=== PATIENT | female | born 1945 | race American Indian/Alaskan Native ===

== ENCOUNTER 2016-12-22 14:38 | Inpatient (IN) | payer MEDICARE ==
[2016-12-22] MEDS ORDERED: ATIVAN ONE (14:40)
[2016-12-22 14:53] LABS: Hematocrit 40.4 % (30.3-42.9); Hemoglobin 12.5 gm/dl (10.1-14.3); Mean Corpuscular HGB Conc 31 % (30-34); Mean Corpuscular Hemoglobin 25 pg (28-32); Mean Corpuscular Volume 80 fl (79-97); Platelet Count 237 K/mm3 (140-440); Red Blood Count 5.06 M/mm3 (3.65-5.03); Red Cell Distribution Width 17.2 % (13.2-15.2); White Blood Count 9.1 K/mm3 (4.5-11.0)
[2016-12-22] MEDS ORDERED: NORMODYNE IV ONE (14:54)
[2016-12-22] MEDS: DIPRIVAN 10 MG/ML 1,000 MG/100 ML BOTTLE IV SCH ×2 (14:56→21:04)
[2016-12-22] MEDS ORDERED: VERSED IV ONE (15:00)
[2016-12-22] MEDS ORDERED: AMIDATE IV ONE (15:00)
[2016-12-22] MEDS ORDERED: QUELICIN ONE (15:00)
[2016-12-22] MEDS ORDERED: DIPRIVAN 10 MG/ML 1,000 MG/100 ML BOTTLE IV ONE (15:01)
[2016-12-22 15:07] LABS: INR 1.12 (0.87-1.13)
[2016-12-22 15:08] LABS: Partial Thromboplastin Time 29.5 Sec. (24.2-36.6)
[2016-12-22] MEDS ORDERED: ARTIFICIAL TEARS OPHTH OINT OU PRN (15:18)
[2016-12-22] MEDS ORDERED: VASELINE LIP THERAPY TP PRN (15:18)
[2016-12-22 15:19] LABS: Anion Gap 28 mmol/L; BUN/Creatinine Ratio 11.81; Blood Urea Nitrogen 13 mg/dL (7-17); Calcium 8.8 mg/dL (8.4-10.2); Carbon Dioxide 20 mmol/L (22-30); Chloride 90.8 mmol/L (98-107); Potassium 3.4 mmol/L (3.6-5.0); Sodium 135 mmol/L (137-145)
[2016-12-22 15:35] LABS: Anisocytosis 1+; Basophils % (Manual) 0 % (0.0-1.8); Blastocytes % (Manual) 0 %; Hypochromasia 1+
[2016-12-22 15:36] LABS: Diff Status Complete; Large Platelets 1+; Ovalocytes 1+; Platelet Estimate Consistent w Auto
[2016-12-22 15:41] LABS: Glucose 663 mg/dL (65-100)
[2016-12-22] MEDS ORDERED: ZOSYN/NS 4.5GM/100ML 4.5 GM/100 ML VIAL IV ONE (15:56)
[2016-12-22] MEDS ORDERED: NACL 0.9% 500 ML IV SCH (16:00)
[2016-12-22] MEDS ORDERED: VANCOMYCIN PHARMACY TO DOSE IV SCH (16:00)
[2016-12-22 16:04] LABS: Alanine Aminotransferase 15 units/L (7-56); Albumin 3.7 g/dL (3.9-5); Alkaline Phosphatase 108 units/L (35-129); Creatine Kinase MB 1.3 ng/mL (0.0-4.0); Total Protein 7.3 g/dL (6.3-8.2)
[2016-12-22 16:06] LABS: Bilirubin,Direct < 0.2 mg/dL (0-0.2); Bilirubin,Indirect 0.5 mg/dL
[2016-12-22 16:07] LABS: ISTAT Base Excess 2; ISTAT HCO3 28.1; ISTAT PCO2 52.9 (35-45); ISTAT PH 7.333 (7.35-7.45); ISTAT PO2 194 (80-105); ISTAT SO2 100; ISTAT TCO2 30
[2016-12-22] MEDS ORDERED: ATIVAN IM ONE (16:08)
--- NOTE | 2016-12-22 16:10 | Cat Scan Report ---
CT HEAD WITHOUT CONTRAST INDICATION: Neuro deficits <6 hours or symptoms present upon awakening. COMPARISON: 04/25/2016. FINDINGS: Noncontrast head CT, with few images repeated for motion, demonstrates stable, age-appropriate ventricles and sulci with mild periventricular and few white matter hypodensities. No definite acute infarct, hemorrhage, mass effect or midline shift, to the extent assessed. No abnormal extra axial fluid collections. Normal posterior fossa with preserved basilar cisterns. Stable 5 mm right cerebellar peripheral lacunar infarct, axial image 13, series 4. New endotracheal and orogastric tubes. Numerous radiopaque dental material create extensive streak artifact, limiting exam. Stable bilateral cataract surgery. Mild bilateral ethmoid sinusitis. Clear remainder imaged paranasal sinuses and mastoid air cells. Approximately 4 mm leftward nasal septal spur. Intact calvarium. Normal skull. CONCLUSION: No definite acute intracranial abnormality on this limited exam with interval intubation, orogastric tube placement and few other incidental findings noted, as above. Please correlate. If focal neurologic deficits or strong clinical suspicion for an acute infarction exist, additional assessment as with MRI may be considered, as appropriate. Thank you for the opportunity to participate in this patient's care.
[2016-12-22] MEDS ORDERED: NACL 0.9% 1000 ML 1,000 ML IV ONE (16:13)
[2016-12-22 16:15] LABS: Ketones Negative (Negative)
--- NOTE | 2016-12-22 16:22 | XRay Report ---
PORTABLE CHEST INDICATION: ET tube placement. COMPARISON: 12/11/2015 FINDINGS: Portable, frontal chest radiograph demonstrates new endotracheal tube tip approximately 3.5 cm above the nasir. A new esophagogastric tube also extends well into the stomach and beyond the inferior radiographic margin. Stable cardiomediastinal silhouette/mild cardiomegaly. Slight increased markings centrally, possibly technical related to poorer inspiration versus congestion. Subtle 3-4 cm left basilar opacity obscuring the left lateral costophrenic angle now suspected, partly obscuring the left hemidiaphragm. EKG leads. Intact bones. CONCLUSION: 1. Interval uncomplicated intubation and esophagogastric tube placement, as described. 2. Slight worsening of pulmonary vascular congestion with stable cardiomegaly. 3. Subtle left basilar opacity also now not excluded. Thank you for the opportunity to participate in this patient's care.
--- NOTE | 2016-12-22 16:59 | Emergency Department Report ---
ED General Adult HPI - General Chief complaint: Altered Mental Status Stated complaint: POSS STROKE Time Seen by Provider: 12/22/16 15:16 Source: EMS Mode of arrival: Stretcher Limitations: Altered Mental Status - History of Present Illness Initial comments: The patient was transported to this facility as a possible code stroke. However upon arrival it became clear that she had a medical delirium. She presented with obvious altered mental status, agitated behavior, nonfocal neurological exam and inability to communicate. In route to the hospital, paramedics found the patient to have an elevated glucose (high off the scale). On arrival the patient's pulse oximetry was in the 70s with a good plethysmography curve. In addition medics stated that her blood pressure was 225 over "palp". It was medically impossible to stabilize the patient without rapid sequence intubation. Her pulse oximetry did improve with a nasal cannula. However she certainly required sedation for medical workup. Therefore we proceeded with RSI. This occurred without difficulty. And her workup ensued. I explained to the family that the patient is acutely ill and that it will take some time to discover the extent of her problems. -: unknown Consistency: constant Improves with: none Worsens with: none - Related Data Home Medications Medication Instructions Recorded Confirmed Last Taken Albuterol Sulfate [Ventolin HFA] 2 puff IH Q4H PRN 12/11/15 04/25/16 1 Week Ago 8 Apixaban [Eliquis] 5 mg PO BID 12/11/15 04/25/16 1 Day Ago 5 Aspirin [Aspirin BABY CHEW TAB] 162 mg PO QDAY 12/11/15 04/25/16 1 Day Ago 81 AtorvaSTATin [Lipitor] 10 mg PO DAILY 12/11/15 04/25/16 1 Day Ago 10 Citalopram [Celexa] 20 mg PO QDAY 12/11/15 04/25/16 1 Day Ago 20 Docusate Sodium [Dok] 100 mg PO DAILY PRN 12/11/15 04/25/16 1 Day Ago 100 Levothyroxine [Synthroid] 100 mcg PO QAM 12/11/15 04/25/16 1 Day Ago 100 Potassium Chloride [K-Dur] 20 meq PO BID 12/11/15 04/25/16 1 Day Ago 20 Sildenafil [Revatio] 20 mg PO TID 12/11/15 04/25/16 1 Day Ago 20 cloNIDine [Catapres] 0.1 mg PO BID 12/11/15 04/25/16 1 Day Ago 0.1 hydrALAZINE [Apresoline TAB] 100 mg PO TID 12/11/15 04/25/16 1 Day Ago 100 traMADol [Ultram 50 MG tab] 50 mg PO Q12HR PRN 12/11/15 04/25/16 1 Day Ago 50 Insulin NPH Hum/Reg Insulin Hm 40 units SQ QPM 12/12/15 04/25/16 1 Day Ago [HumuLIN 70-30 Vial] 40 Insulin NPH Hum/Reg Insulin Hm 60 unit SQ QAM 12/12/15 04/25/16 1 Day Ago [HumuLIN 70-30 Vial] 60 Previous Rx's Medication Instructions Recorded Last Taken Type Famotidine [Pepcid] 20 mg PO BID #60 tablet 12/12/15 1 Day Ago Rx 20 Metoprolol [Lopressor TAB] 12.5 mg PO BID #60 tablet 12/12/15 1 Day Ago Rx 12.5 Allergies Allergy/AdvReac Type Severity Reaction Status Date / Time codeine Allergy Vomiting Verified 12/11/15 21:21 ED Review of Systems ROS: Stated complaint: POSS STROKE Other details as noted in HPI Comment: Unobtainable due to pts medical conditions ED Past Medical Hx - Past Medical History Previous Medical History?: Yes Hx Hypertension: Yes Hx Congestive Heart Failure: Yes Hx Diabetes: Yes Hx Renal Disease: Yes Hx Arthritis: Yes Hx Asthma: Yes Additional medical history: PULMONARY EDEMA/ BACK DISC / A FIB - Surgical History Past Surgical History?: Yes Hx Appendectomy: Yes Additional Surgical History: HYSTERECTOMY - Social History Smoking Status: Unknown if ever smoked - Medications Home Medications: Home Medications Medication Instructions Recorded Confirmed Last Taken Type Albuterol Sulfate [Ventolin HFA] 2 puff IH Q4H PRN 12/11/15 04/25/16 1 Week Ago History 8 Apixaban [Eliquis] 5 mg PO BID 12/11/15 04/25/16 1 Day Ago History 5 Aspirin [Aspirin BABY CHEW TAB] 162 mg PO QDAY 12/11/15 04/25/16 1 Day Ago History 81 AtorvaSTATin [Lipitor] 10 mg PO DAILY 12/11/15 04/25/16 1 Day Ago History 10 Citalopram [Celexa] 20 mg PO QDAY 12/11/15 04/25/16 1 Day Ago History 20 Docusate Sodium [Dok] 100 mg PO DAILY PRN 12/11/15 04/25/16 1 Day Ago History 100 Levothyroxine [Synthroid] 100 mcg PO QAM 12/11/15 04/25/16 1 Day Ago History 100 Potassium Chloride [K-Dur] 20 meq PO BID 12/11/15 04/25/16 1 Day Ago History 20 Sildenafil [Revatio] 20 mg PO TID 12/11/15 04/25/16 1 Day Ago History 20 cloNIDine [Catapres] 0.1 mg PO BID 12/11/15 04/25/16 1 Day Ago History 0.1 hydrALAZINE [Apresoline TAB] 100 mg PO TID 12/11/15 04/25/16 1 Day Ago History 100 traMADol [Ultram 50 MG tab] 50 mg PO Q12HR PRN 12/11/15 04/25/16 1 Day Ago History 50 Famotidine [Pepcid] 20 mg PO BID #60 tablet 12/12/15 04/25/16 1 Day Ago Rx 20 Insulin NPH Hum/Reg Insulin Hm 40 units SQ QPM 12/12/15 04/25/16 1 Day Ago History [HumuLIN 70-30 Vial] 40 Insulin NPH Hum/Reg Insulin Hm 60 unit SQ QAM 12/12/15 04/25/16 1 Day Ago History [HumuLIN 70-30 Vial] 60 Metoprolol [Lopressor TAB] 12.5 mg PO BID #60 tablet 12/12/15 04/25/16 1 Day Ago Rx 12.5 ED Physical Exam - General Limitations: Altered Mental Status General appearance: other (obviously delirious very agitated) - Head Head exam: Present: atraumatic - Eye Eye exam: Present: PERRL, EOMI. Absent: scleral icterus - ENT ENT exam: Present: mucous membranes moist - Neck Neck exam: Present: normal inspection. Absent: tenderness, meningismus - Respiratory Respiratory exam: Present: normal lung sounds bilaterally. Absent: respiratory distress - Cardiovascular Cardiovascular Exam: Present: normal rhythm, irregular rhythm. Absent: systolic murmur, diastolic murmur, rubs, gallop - GI/Abdominal GI/Abdominal exam: Present: soft, normal bowel sounds. Absent: distended, tenderness, guarding, rebound, rigid - Extremities Exam Extremities exam: Present: normal inspection, full ROM, normal capillary refill. Absent: tenderness, pedal edema, joint swelling, calf tenderness - Back Exam Back exam: Present: normal inspection - Neurological Exam Neurological exam: Present: altered, other (nonfocal neurological exam moving all extremities quite briskly. No apparent cranial nerve deficit as testable) - Psychiatric Psychiatric exam: Present: agitated - Skin Skin exam: Present: warm, dry, intact, normal color. Absent: rash ED Course Vital Signs 12/22/16 12/22/16 12/22/16 14:38 14:40 14:46 Pulse Rate 132 H 126 H Respiratory 24 22 Rate Blood Pressure 196/112 O2 Sat by Pulse 76 L 77 L 74 L Oximetry 12/22/16 12/22/16 12/22/16 14:50 15:00 15:10 Pulse Rate 129 H 79 Respiratory 22 9 L 13 Rate Blood Pressure 196/112 160/111 O2 Sat by Pulse 96 100 100 Oximetry 12/22/16 12/22/16 12/22/16 15:18 15:20 15:49 Pulse Rate 86 90 Respiratory 18 Rate Blood Pressure 116/66 126/74 O2 Sat by Pulse 97 100 Oximetry 12/22/16 12/22/16 12/22/16 15:50 16:00 16:10 Pulse Rate 77 Respiratory 13 18 20 Rate Blood Pressure 126/74 126/74 116/66 O2 Sat by Pulse Oximetry 12/22/16 12/22/16 16:20 16:30 Pulse Rate 76 77 Respiratory 20 20 Rate Blood Pressure 126/74 129/62 O2 Sat by Pulse 96 97 Oximetry - Reevaluation(s) Reevaluation #1: Clinically the patient does not have an acute stroke syndrome. She has ample reason for medical delirium to include extreme elevation of her blood sugar, blood pressure and lactic acidosis. We have started to address these issues. Obviously the patient will require admission to an ICU. She is admitted by Dr. Sher for further care and evaluation. 12/22/16 17:02 Reevaluation #2: The patient has been seen by the hospitalist has assumed care. 12/22/16 17:11 Reevaluation #3: She was given fluids, empiric antibiotics, K rider begun as insulin IV is necessitated. A repeat EMP is ordered. Further care per . 12/22/16 17:12 - EJ/Peripheral Line Neck L Time Out Performed: No Indications: nurses unable to establis Skin Cleansed in Sterile Fashion: Yes Size: 20 Dressing Placed: Tegaderm, tape Patient Tolerated Procedure: well, no complications - Intubation Time Out Performed: No Sedative: Etomidate Paralytic: Succinylcholine Laryngoscope: Maulik Size: 4 ET Tube Size: 8 Tube Secured Depth (cm): 24 Tube Secured Location: lips Tube Placement Confirmation: visualized tube passing t, equal breath sounds bilat, no breath sounds over epi, confirmation by capnometr Patient Tolerated Procedure: well Intubation Complications: none ED Medical Decision Making - Lab Data Result diagrams: 12/22/16 14:40 12/22/16 14:40 Laboratory Results - last 24 hr 12/22/16 12/22/16 12/22/16 14:40 14:40 14:40 WBC 9.1 RBC 5.06 H Hgb 12.5 Hct 40.4 MCV 80 MCH 25 L MCHC 31 RDW 17.2 H Plt Count 237 Lymph % (Auto) Dredge Master Lymph # Dredge Master Add Manual Diff Complete Total Counted 100 Seg Neutrophils % Dredge Master Seg Neuts % (Manual) 39.0 L Band Neutrophils % 0 Lymphocytes % (Manual) 49.0 H Reactive Lymphs % (Man) 0 Monocytes % (Manual) 9.0 H Eosinophils % (Manual) 2.0 Basophils % (Manual) 0 Metamyelocytes % 1.0 Myelocytes % 0 Promyelocytes % 0 Blast Cells % 0 Nucleated RBC % Not Reportable Seg Neutrophils # Man 3.5 Band Neutrophils # 0.0 Lymphocytes # (Manual) 4.5 Abs React Lymphs (Man) 0.0 Monocytes # (Manual) 0.8 Eosinophils # (Manual) 0.2 Basophils # (Manual) 0.0 Metamyelocytes # 0.1 Myelocytes # 0.0 Promyelocytes # 0.0 Blast Cells # 0.0 WBC Morphology Not Reportable Hypersegmented Neuts Not Reportable Hyposegmented Neuts Not Reportable Hypogranular Neuts Not Reportable Smudge Cells Not Reportable Toxic Granulation Not Reportable Toxic Vacuolation Not Reportable Dohle Bodies Not Reportable Pelger-Huet Anomaly Not Reportable Melba Rods Not Reportable Platelet Estimate Consistent w auto Clumped Platelets Not Reportable Plt Clumps, EDTA Not Reportable Large Platelets 1+ Giant Platelets Not Reportable Platelet Satelliting Not Reportable Plt Morphology Comment Not Reportable RBC Morphology Not Reportable Dimorphic RBCs Not Reportable Polychromasia Not Reportable Hypochromasia 1+ Poikilocytosis Not Reportable Anisocytosis 1+ Microcytosis Not Reportable Macrocytosis Not Reportable Spherocytes Not Reportable Pappenheimer Bodies Not Reportable Sickle Cells Not Reportable Target Cells Not Reportable Tear Drop Cells Not Reportable Ovalocytes 1+ Helmet Cells Not Reportable [place] Bodies Not Reportable Woodbine Rings Not Reportable Rere Cells Not Reportable Bite Cells Not Reportable Crenated Cell Not Reportable Elliptocytes Not Reportable Acanthocytes (Spur) Not Reportable Rouleaux Not Reportable Hemoglobin C Crystals Not Reportable Schistocytes Not Reportable Malaria parasites Not Reportable Germain Bodies Not Reportable Hem Pathologist Commnt No PT 15.0 H INR 1.12 APTT 29.5 Thrombin Time POC ABG pH POC ABG pCO2 POC ABG pO2 POC ABG HCO3 POC ABG Total CO2 POC ABG O2 Sat POC ABG Base Excess FiO2 Sodium 135 L Potassium 3.4 L Chloride 90.8 L Carbon Dioxide 20 L Anion Gap 28 BUN 13 Creatinine 1.1 Estimated GFR 60 BUN/Creatinine Ratio 11.81 Glucose 663 H* Ketones Quantitative Lactic Acid Calcium 8.8 Total Bilirubin Direct Bilirubin Indirect Bilirubin AST ALT Alkaline Phosphatase Total Creatine Kinase CK-MB (CK-2) CK-MB (CK-2) Rel Index Troponin T < 0.010 NT-Pro-B Natriuret Pep Total Protein Albumin Albumin/Globulin Ratio 12/22/16 12/22/16 12/22/16 14:40 14:40 14:40 WBC RBC Hgb Hct MCV MCH MCHC RDW Plt Count Lymph % (Auto) Lymph # Add Manual Diff Total Counted Seg Neutrophils % Seg Neuts % (Manual) Band Neutrophils % Lymphocytes % (Manual) Reactive Lymphs % (Man) Monocytes % (Manual) Eosinophils % (Manual) Basophils % (Manual) Metamyelocytes % Myelocytes % Promyelocytes % Blast Cells % Nucleated RBC % Seg Neutrophils # Man Band Neutrophils # Lymphocytes # (Manual) Abs React Lymphs (Man) Monocytes # (Manual) Eosinophils # (Manual) Basophils # (Manual) Metamyelocytes # Myelocytes # Promyelocytes # Blast Cells # WBC Morphology Hypersegmented Neuts Hyposegmented Neuts Hypogranular Neuts Smudge Cells Toxic Granulation Toxic Vacuolation Dohle Bodies Pelger-Huet Anomaly Melba Rods Platelet Estimate Clumped Platelets Plt Clumps, EDTA Large Platelets Giant Platelets Platelet Satelliting Plt Morphology Comment RBC Morphology Dimorphic RBCs Polychromasia Hypochromasia Poikilocytosis Anisocytosis Microcytosis Macrocytosis Spherocytes Pappenheimer Bodies Sickle Cells Target Cells Tear Drop Cells Ovalocytes Helmet Cells [place] Bodies Woodbine Rings Rere Cells Bite Cells Crenated Cell Elliptocytes Acanthocytes (Spur) Rouleaux Hemoglobin C Crystals Schistocytes Malaria parasites Germain Bodies Hem Pathologist Commnt PT INR APTT Thrombin Time 18.4 POC ABG pH POC ABG pCO2 POC ABG pO2 POC ABG HCO3 POC ABG Total CO2 POC ABG O2 Sat POC ABG Base Excess FiO2 Sodium Potassium Chloride Carbon Dioxide Anion Gap BUN Creatinine Estimated GFR BUN/Creatinine Ratio Glucose Ketones Quantitative Negative Lactic Acid Calcium Total Bilirubin 0.70 Direct Bilirubin < 0.2 Indirect Bilirubin 0.5 AST 12 ALT 15 Alkaline Phosphatase 108 Total Creatine Kinase 67 CK-MB (CK-2) 1.3 CK-MB (CK-2) Rel Index 1.9 Troponin T NT-Pro-B Natriuret Pep 1966 H Total Protein 7.3 Albumin 3.7 L Albumin/Globulin Ratio 1.0 12/22/16 12/22/16 14:49 15:59 WBC RBC Hgb Hct MCV MCH MCHC RDW Plt Count Lymph % (Auto) Lymph # Add Manual Diff Total Counted Seg Neutrophils % Seg Neuts % (Manual) Band Neutrophils % Lymphocytes % (Manual) Reactive Lymphs % (Man) Monocytes % (Manual) Eosinophils % (Manual) Basophils % (Manual) Metamyelocytes % Myelocytes % Promyelocytes % Blast Cells % Nucleated RBC % Seg Neutrophils # Man Band Neutrophils # Lymphocytes # (Manual) Abs React Lymphs (Man) Monocytes # (Manual) Eosinophils # (Manual) Basophils # (Manual) Metamyelocytes # Myelocytes # Promyelocytes # Blast Cells # WBC Morphology Hypersegmented Neuts Hyposegmented Neuts Hypogranular Neuts Smudge Cells Toxic Granulation Toxic Vacuolation Dohle Bodies Pelger-Huet Anomaly Melba Rods Platelet Estimate Clumped Platelets Plt Clumps, EDTA Large Platelets Giant Platelets Platelet Satelliting Plt Morphology Comment RBC Morphology Dimorphic RBCs Polychromasia Hypochromasia Poikilocytosis Anisocytosis Microcytosis Macrocytosis Spherocytes Pappenheimer Bodies Sickle Cells Target Cells Tear Drop Cells Ovalocytes Helmet Cells [place] Bodies Woodbine Rings Johnson Cells Bite Cells Crenated Cell Elliptocytes Acanthocytes (Spur) Rouleaux Hemoglobin C Crystals Schistocytes Malaria parasites Germain Bodies Hem Pathologist Commnt PT INR APTT Thrombin Time POC ABG pH 7.333 L POC ABG pCO2 52.9 H POC ABG pO2 194 H POC ABG HCO3 28.1 POC ABG Total CO2 30 POC ABG O2 Sat 100 POC ABG Base Excess 2 FiO2 100 Sodium Potassium Chloride Carbon Dioxide Anion Gap BUN Creatinine Estimated GFR BUN/Creatinine Ratio Glucose Ketones Quantitative Lactic Acid 6.50 H* Calcium Total Bilirubin Direct Bilirubin Indirect Bilirubin AST ALT Alkaline Phosphatase Total Creatine Kinase CK-MB (CK-2) CK-MB (CK-2) Rel Index Troponin T NT-Pro-B Natriuret Pep Total Protein Albumin Albumin/Globulin Ratio - EKG Data -: EKG Interpreted by Me Rate: normal - EKG Data Interpretation: other (atrial fibrillation nonspecific ST-T wave changes suggests LVH) - Radiology Data interpreted by me: Chest x-ray is consistent with venous congestion and cardiomegaly and ET tube is in good position above the nasir. Critical Care Time: Yes Critical care time in (mins) excluding proc time.: 90 Critical care attestation.: If time is entered above; I have spent that time in minutes in the direct care of this critically ill patient, excluding procedure time. ED Disposition Clinical Impression: Type 1 diabetes mellitus with hyperglycemia, with long-term current use of insulin, Lactic acidosis, Uncontrolled hypertension, Hypokalemia Atrial fibrillation Qualifiers: Atrial fibrillation type: chronic Qualified Code(s): I48.2 - Chronic atrial fibrillation Altered mental status Qualifiers: Altered mental status type: delirium Qualified Code(s): R41.0 - Disorientation , unspecified Congestive heart failure Qualifiers: Congestive heart failure type: combined Congestive heart failure chronicity: acute on chronic Qualified Code(s): I50.43 - Acute on chronic combined systolic (congestive) and diastolic (congestive) heart failure Disposition: OP ADMIT IP TO THIS HOSP Is pt being admited?: Yes Does the pt Need Aspirin: Yes Condition: Stable Instructions: Diabetes Mellitus Type 2 in Adults (ED), Hypertension (ED) Time of Disposition: 17:11
[2016-12-22] MEDS ORDERED: VANCOMYCIN 2,000 MG in NACL 0.9% 500 ML 500 ML IV ONE (17:00)
[2016-12-22] MEDS ORDERED: ASPIRIN PR ONE (17:14)
--- NOTE | 2016-12-22 17:18 | History and Physical Report ---
History of Present Illness Date of examination: 12/22/16 Chief complaint: Altered mental status History from chart and son also at bedside because patient is intubated History of present illness: Patient is 71-year-old woman who lives at home with a history of obstructive sleep apnea on CPAP, hypertension, type 2 diabetes mellitus, systolic heart failure EF 45-50%, A. fib on Eliquis, CVA with chronic right cerebellar infarct , GERD and hypothyroidism who presents via EMS to [facility] ED after being found unconscious on the bathroom floor with cpap mask on. They had to kick down the bathroom door because she was blocking the door. Per ED physician documentation , Upon arrival to the emergency department she was agitated inability to communicate pulse ox was in the 70s, systolic blood pressure was 225 and blood sugar was so high it was unable to be read by glucometer. Patient was subsequently intubated for airway protection. Therefore, she gives no history, son, Clive, at bedside provided most of the history. CTH w/o contrast reported as no definite acute intracranial abnormality. CXR: interval uncomplicated intubation and esophagogastric tube placement. Slight worsening of pulmonary vascular congestion with stable cardiomegaly, subtle left basilar opacity. 04/25/2016 transthoracic echocardiogram read by Dr. Clifford reported as severe concentric left ventricular hypertrophy, global left ventricular systolic function is mildly decreased, estimated EF is 45-50%, left atrium severely dilated, right ventricle is mildly dilated, right ventricle systolic function is moderately reduced, right atrial cavity size is severely dilated, no atrial septal defect, mild MR, moderate to severe TR, right ventricular systolic 81 mmHg, evidence of severe pulmonary hypertension, mild pulmonic regurgitation. PCP at [facility], Dr. Brown Brar, Immigration Lawyer Dr. Valentine. Past medical history: As HPI and also include diabetes, hypertension, obstructive sleep apnea CHF A. fib, CVA dyslipidemia Past surgical history: Appendectomy hysterectomy Social history: No tobacco dependency, alcohol abuse per family Family history: Hypertension per family ROS:unable to obtain due to presence of ETT Medications and Allergies Allergies Allergy/AdvReac Type Severity Reaction Status Date / Time codeine Allergy Vomiting Verified 12/11/15 21:21 Home Medications Medication Instructions Recorded Confirmed Last Taken Type Albuterol Sulfate [Ventolin HFA] 2 puff IH Q4H PRN 12/11/15 04/25/16 1 Week Ago History 8 Apixaban [Eliquis] 5 mg PO BID 12/11/15 04/25/16 1 Day Ago History 5 Aspirin [Aspirin BABY CHEW TAB] 162 mg PO QDAY 12/11/15 04/25/16 1 Day Ago History 81 AtorvaSTATin [Lipitor] 10 mg PO DAILY 12/11/15 04/25/16 1 Day Ago History 10 Citalopram [Celexa] 20 mg PO QDAY 12/11/15 04/25/16 1 Day Ago History 20 Docusate Sodium [Dok] 100 mg PO DAILY PRN 12/11/15 04/25/16 1 Day Ago History 100 Levothyroxine [Synthroid] 100 mcg PO QAM 12/11/15 04/25/16 1 Day Ago History 100 Potassium Chloride [K-Dur] 20 meq PO BID 12/11/15 04/25/16 1 Day Ago History 20 Sildenafil [Revatio] 20 mg PO TID 12/11/15 04/25/16 1 Day Ago History 20 cloNIDine [Catapres] 0.1 mg PO BID 12/11/15 04/25/16 1 Day Ago History 0.1 hydrALAZINE [Apresoline TAB] 100 mg PO TID 12/11/15 04/25/16 1 Day Ago History 100 traMADol [Ultram 50 MG tab] 50 mg PO Q12HR PRN 12/11/15 04/25/16 1 Day Ago History 50 Famotidine [Pepcid] 20 mg PO BID #60 tablet 12/12/15 04/25/16 1 Day Ago Rx 20 Insulin NPH Hum/Reg Insulin Hm 40 units SQ QPM 12/12/15 04/25/16 1 Day Ago History [HumuLIN 70-30 Vial] 40 Insulin NPH Hum/Reg Insulin Hm 60 unit SQ QAM 12/12/15 04/25/16 1 Day Ago History [HumuLIN 70-30 Vial] 60 Metoprolol [Lopressor TAB] 12.5 mg PO BID #60 tablet 12/12/15 04/25/16 1 Day Ago Rx 12.5 Active Meds: Active Medications Hydrophilic Ointment (Vaseline Lip Therapy) 1 applic TP Q2HR PRN PRN Reason: Dry Lips Propofol (Diprivan 10 Mg/Ml) 1,000 mg in 100 mls @ 3.13 mls/hr IV TITR ALETHA; 5 MCG/KG/MIN PRN Reason: Protocol Potassium Chloride (Kcl 10meq/100ml) 10 meq in 100 mls @ 100 mls/hr IV Q1H ALETHA Stop: 12/22/16 20:59 Vancomycin HCl 2,000 mg/ (Sodium Chloride) 520 mls @ 250 mls/hr IV ONCE.ED ONE Stop: 12/22/16 19:04 Multi-Ingred Cream/Lotion/Oil/Oint (Artificial Tears Ophth Oint) 1 applic OU Q4HR PRN PRN Reason: Dry Eye(s) Last Admin: 12/22/16 16:33 Dose: 1 applic Sodium Chloride (Nacl 0.9% 500 Ml) 1 ml IV DIRECT ALETHA Vancomycin HCl (Vancomycin Pharmacy To Dose) 1 each IV PKCONSULT ALETHA PRN Reason: Protocol Exam - Physical Exam Narrative exam: GEN: Obese, well-nourished, Ill-appearing, moderate respiratory increase accessory muscle usage, intubated, sedated deprivation HEENT: NCAT, pupils are reactive bilaterally EOMI, OP CLEAR, ET tube in place NECK: SUPPLE, NO THYROMEGALY, equivocal JVD, NO LAD CVS: Irregular irregular NORMAL S1S2 LUNGS/CHEST: Bibasilar crackles NORMAL CHEST EXPANSION B, diminished AIR ENTRY B ABD: SOFT, NTND, GBS, NO REBOUND OR GUARDING EXT/SKIN: NO SIGNIFICANT EDEMA OR RASH MSK: Spontaneous movement 4 NEURO: CN 2-12 GROSSLY INTACT, sedated, doesn't follow commands PSY: Medically induced coma - Constitutional Vitals: Temp Pulse Resp BP Pulse Ox 98.7 F 20 L 20 159/89 100 12/22/16 17:04 12/22/16 17:04 12/22/16 17:04 12/22/16 17:04 12/22/16 17:04 Results - Labs CBC & Chem 7: 12/22/16 14:40 12/22/16 14:40 Labs: Abnormal lab results 12/22/16 12/22/16 12/22/16 Range/Units 14:40 14:40 14:40 RBC 5.06 H (3.65-5.03) M/mm3 MCH 25 L (28-32) pg RDW 17.2 H (13.2-15.2) % Seg Neuts % (Manual) 39.0 L (40.0-70.0) % Lymphocytes % (Manual) 49.0 H (13.4-35.0) % Monocytes % (Manual) 9.0 H (0.0-7.3) % PT 15.0 H (12.2-14.9) Sec. POC ABG pH (7.35-7.45) POC ABG pCO2 (35-45) POC ABG pO2 (80-105) Sodium 135 L (137-145) mmol/L Potassium 3.4 L (3.6-5.0) mmol/L Chloride 90.8 L (98-107) mmol/L Carbon Dioxide 20 L (22-30) mmol/L Glucose 663 H* (65-100) mg/dL Lactic Acid (0.7-2.0) mmol/L NT-Pro-B Natriuret Pep (0-900) pg/mL Albumin (3.9-5) g/dL 12/22/16 12/22/16 12/22/16 Range/Units 14:40 14:40 14:49 RBC (3.65-5.03) M/mm3 MCH (28-32) pg RDW (13.2-15.2) % Seg Neuts % (Manual) (40.0-70.0) % Lymphocytes % (Manual) (13.4-35.0) % Monocytes % (Manual) (0.0-7.3) % PT (12.2-14.9) Sec. POC ABG pH (7.35-7.45) POC ABG pCO2 (35-45) POC ABG pO2 (80-105) Sodium (137-145) mmol/L Potassium (3.6-5.0) mmol/L Chloride (98-107) mmol/L Carbon Dioxide (22-30) mmol/L Glucose (65-100) mg/dL Lactic Acid 6.50 H* (0.7-2.0) mmol/L NT-Pro-B Natriuret Pep 1966 H (0-900) pg/mL Albumin 3.7 L (3.9-5) g/dL 12/22/16 Range/Units 15:59 RBC (3.65-5.03) M/mm3 MCH (28-32) pg RDW (13.2-15.2) % Seg Neuts % (Manual) (40.0-70.0) % Lymphocytes % (Manual) (13.4-35.0) % Monocytes % (Manual) (0.0-7.3) % PT (12.2-14.9) Sec. POC ABG pH 7.333 L (7.35-7.45) POC ABG pCO2 52.9 H (35-45) POC ABG pO2 194 H (80-105) Sodium (137-145) mmol/L Potassium (3.6-5.0) mmol/L Chloride (98-107) mmol/L Carbon Dioxide (22-30) mmol/L Glucose (65-100) mg/dL Lactic Acid (0.7-2.0) mmol/L NT-Pro-B Natriuret Pep (0-900) pg/mL Albumin (3.9-5) g/dL - Imaging and Cardiology EKG: report reviewed Chest x-ray: report reviewed CT Scan - head: report reviewed Assessment and Plan Patient is 71-year-old woman who lives at home with a history of obstructive sleep apnea on CPAP, hypertension, type 2 diabetes mellitus, systolic heart failure EF 45-50%, A. fib on Eliquis, CVA with chronic right cerebellar infarct , GERD and hypothyroidism who presents via EMS to [facility] ED after being found unconscious on the bathroom floor with cpap mask on. They had to kick down the bathroom door because she was blocking the door. Per ED physician documentation , Upon arrival to the emergency department she was agitated inability to communicate pulse ox was in the 70s, systolic blood pressure was 225 and blood sugar was so high it was unable to be read by glucometer. Patient was subsequently intubated for airway protection. Therefore, she gives no history, son, Clive, at bedside provided most of the history. CTH w/o contrast reported as no definite acute intracranial abnormality. CXR: interval uncomplicated intubation and esophagogastric tube placement. Slight worsening of pulmonary vascular congestion with stable cardiomegaly, subtle left basilar opacity. 04/25/2016 transthoracic echocardiogram read by Dr. Clifford reported as severe concentric left ventricular hypertrophy, global left ventricular systolic function is mildly decreased, estimated EF is 45-50%, left atrium severely dilated, right ventricle is mildly dilated, right ventricle systolic function is moderately reduced, right atrial cavity size is severely dilated, no atrial septal defect, mild MR, moderate to severe TR, right ventricular systolic 81 mmHg, evidence of severe pulmonary hypertension, mild pulmonic regurgitation. PCP at [facility], Dr. Brown Brar, Immigration Lawyer Dr. Valentine. -Acute hypoxic respiratory failure most likely due to CHF: Treat with oxygen, and consult pulmonology/critical care, get ngt -Acute on Chronic Systolic Heart Failure: Treat with IV diuretics -Malignant hypertension: IV antihypertensive -HONK with coma: Treat with insulin -Acute metabolic encephalopathy: Treat the above -Lactic acidosis -Afib with RVR: Consulted cardiology -Hypokalemia: Replace and recheck in a.m. -DVT prophylaxis: On Eliquis -No definite source of infection, will stop iv vancomycin, get cultures Full code The high probability of a clinically significant, sudden or life threatening deterioration of the [neurologic,cardiac] system(s) required my full and direct attention, intervention and personal management. The aggregate critical care time was [ 44 ] minutes. This time is in addition to time spent performing reported procedures but includes the following: [x] Data Review and interpretation [x] Patient assessment and monitoring of vital signs [x] Documentation [x] Medication orders and management
[2016-12-22] MEDS: KCL 10MEQ/100ML 10 MEQ/100 ML BAG IV SCH ×4 (17:29→21:59)
[2016-12-22] MEDS ORDERED: PROVENTIL IH ONE ×2 (17:42→18:28)
[2016-12-22] MEDS ORDERED: D50W (25GM) Syringe IV PRN (17:43)
[2016-12-22] MEDS ORDERED: ATIVAN IV PRN (17:45)
[2016-12-22] MEDS ORDERED: NORMODYNE IV PRN (17:45)
[2016-12-22] MEDS ORDERED: DULCOLAX PR PRN (17:46)
[2016-12-22] MEDS ORDERED: TYLENOL PR PRN (17:47)
[2016-12-22] MEDS ORDERED: LASIX IV SCH (18:00)
[2016-12-22 18:03] LABS: BUN/Creatinine Ratio 11.66; Calcium 8.5 mg/dL (8.4-10.2); Chloride 91.3 mmol/L (98-107); Potassium 4.7 mmol/L (3.6-5.0)
[2016-12-22] MEDS ORDERED: NACL 0.9% 1000 ML 2,000 ML IV SCH (19:00)
[2016-12-22] MEDS: LASIX IV SCH ×2 (19:53→22:00)
[2016-12-22] MEDS: NOVOLOG SUB-Q SCH ×2 (19:54→22:48)
[2016-12-22] MEDS: APRESOLINE PO SCH (21:04)
[2016-12-22] MEDS: DUONEB *Not for PRN Use IH SCH (21:09)
[2016-12-22] MEDS ORDERED: K-DUR PO SCH (22:00)
[2016-12-22] MEDS: PEPCID PO SCH (22:48)
[2016-12-22] MEDS: ELIQUIS PO SCH (22:53)
[2016-12-22] MEDS: REVATIO PO SCH (22:54)
[2016-12-22] MEDS: CATAPRES PO SCH (23:41)
[2016-12-22] MEDS: LOPRESSOR PO SCH (23:41)
[2016-12-23] MEDS: DIPRIVAN 10 MG/ML 1,000 MG/100 ML BOTTLE IV SCH ×3 (00:16→10:16)
[2016-12-23] MEDS: NOVOLOG SUB-Q SCH ×5 (02:59→18:11)
[2016-12-23 03:34] LABS: Hematocrit 36.2 % (30.3-42.9); Hemoglobin 11.7 gm/dl (10.1-14.3); Mean Corpuscular HGB Conc 33 % (30-34); Mean Corpuscular Volume 78 fl (79-97); Red Blood Count 4.63 M/mm3 (3.65-5.03); Red Cell Distribution Width 17.5 % (13.2-15.2); White Blood Count 10.7 K/mm3 (4.5-11.0)
[2016-12-23 03:51] LABS: Anion Gap 20 mmol/L; Blood Urea Nitrogen 12 mg/dL (7-17); Calcium 8.1 mg/dL (8.4-10.2); Carbon Dioxide 20 mmol/L (22-30); Chloride 102.2 mmol/L (98-107); Glucose 338 mg/dL (65-100); Sodium 138 mmol/L (137-145)
[2016-12-23 03:53] LABS: Mean Corpuscular Hemoglobin 25 pg (28-32); Platelet Count 221 K/mm3 (140-440)
[2016-12-23 05:19] LABS: ISTAT Base Excess -1; ISTAT HCO3 23.5; ISTAT PCO2 33.9 (35-45); ISTAT PH 7.449 (7.35-7.45); ISTAT PO2 122 (80-105); ISTAT SO2 99; ISTAT TCO2 25
[2016-12-23] MEDS: VANCOMYCIN 1,500 MG in NACL 0.9% 500 ML 500 ML IV SCH ×2 (05:35→18:13)
[2016-12-23] MEDS ORDERED: DUONEB *Not for PRN Use IH ONE (07:18)
--- NOTE | 2016-12-23 08:05 | Admit Criteria Form ---
Admission Criteria Documentation: RESPIRATORY FAILURE GRG Clinical Indications for Admission to Inpatient Care (Place 'X' for any and all applicable criteria): Hospital admission is needed for appropriate care of the patient because of acute respiratory failure or insufficiency as indicated by 1 or more of the following (1)(2)(3)(4)(5)(6)(7)(8 ): [X ]I. Mechanical ventilation needed (acute invasive or noninvasive) [ ]II. Severe ventilation deficit as indicated by 1 or more of the following ( 9) [ ]a) Uncompensated Respiratory acidosis (pH < 7.35 and PaCO2 > 40 mmHg (5.3 kPa)) [ ]b) Airflow measurements < 25% of predicted (eg, PEFR < 100 L/min) [ ]c) FVC < 15 mL/kg of ideal body weight, or 50% decrease in vital capacity from baseline [ ]III. Noncardiac pulmonary edema not resolving with rapid emergency treatment (8) [ ]IV. Severe respiratory distress as indicated by 1 or more of the following: [ ]a) Severe tachypnea (respiratory rate greater than 30, greater than 45 for 6-month-old, greater than 60 for ) [ ]b) Severe hypoxemia (partial pressure of oxygen less than 50 mm Hg ( 6.7 kPa) on greater than 50% oxygen or partial pressure of oxygen to FIO2 ratio less than 200) [ ]c) Mental status deterioration from respiratory disease [ ]V. Airway obstruction or inadequate protection [A](10)(11) The original [employer] content created by [employer] has been revised. The portions of the content which have been revised are identified through the use of italic text or in bold, and [employer] has neither reviewed nor approved the modified material. All other unmodified content is copyright [employer]. Please see references footnoted in the original [employer] edition 2017 Admission Criteria Met: Yes
--- NOTE | 2016-12-23 08:39 | XRay Report ---
ABDOMEN ONE VIEW INDICATION: NG tube placement. COMPARISON: None similar. FINDINGS: Frontal abdominal radiograph demonstrates an esophagogastric tube tip projecting in the left lower quadrant, possibly about the antrum of a mild to moderately distended stomach. Diffuse upper abdominal haziness nonspecific with nonobstructive small bowel pattern noted in the imaged lower abdomen. Pelvis much excluded from the inferior radiographic margin. Mild cardiomegaly possible. Mild left lung base opacity/possible pleural fluid. EKG leads. Lower lumbar degenerative changes. CONCLUSION: Various findings, as above. Thank you for the opportunity to participate in this patient's care.
--- NOTE | 2016-12-23 09:09 | Consultation ---
History of Present Illness Consult date: 12/23/16 Consult reason: atrial fibrillation History of present illness: This is a 71yr old woman who is admitted to the CCU, intubated on mechanical ventilation. No family members present. It's reported she was brought to the ED with alteration of mental status. Head CT reports no acute intracranial process. Initial labs shows a serum glucose of 663, lactic acid of 6.5. Cardiology consultation was requested for CHF. Chest x-ray reports cardiomegaly with vascular congestion. Review of records at this hospital shows cardiac workup done within the past year. An echocardiogram, 8 months ago, reports at least a moderate TR, severe pulmonary hypertension and a severe left ventricular hypertrophy. Ejection fraction 45-50%. A persantine stress thallium reports no reversible ischemia. A 12 lead ECG shows atrial fibrillation with a well controlled ventricular rate. Home medications shows that she is on eliquis for oral anticoagulation. Medications and Allergies Allergies Allergy/AdvReac Type Severity Reaction Status Date / Time codeine Allergy Vomiting Verified 12/11/15 21:21 Home Medications Medication Instructions Recorded Confirmed Last Taken Type Albuterol Sulfate [Ventolin HFA] 2 puff IH Q4H PRN 12/11/15 12/23/16 1 Week Ago History 8 Apixaban [Eliquis] 5 mg PO BID 12/11/15 12/23/16 1 Day Ago History 5 Aspirin [Aspirin BABY CHEW TAB] 162 mg PO QDAY 12/11/15 12/23/16 1 Day Ago History 81 AtorvaSTATin [Lipitor] 10 mg PO DAILY 12/11/15 12/23/16 1 Day Ago History 10 Citalopram [Celexa] 20 mg PO QDAY 12/11/15 12/23/16 1 Day Ago History 20 Docusate Sodium [Dok] 100 mg PO DAILY PRN 12/11/15 12/23/16 1 Day Ago History 100 Levothyroxine [Synthroid] 100 mcg PO QAM 12/11/15 12/23/16 1 Day Ago History 100 Potassium Chloride [K-Dur] 20 meq PO BID 12/11/15 12/23/16 1 Day Ago History 20 Sildenafil [Revatio] 20 mg PO TID 12/11/15 12/23/16 1 Day Ago History 20 cloNIDine [Catapres] 0.1 mg PO BID 12/11/15 12/23/16 1 Day Ago History 0.1 hydrALAZINE [Apresoline TAB] 100 mg PO TID 12/11/15 12/23/16 1 Day Ago History 100 traMADol [Ultram 50 MG tab] 50 mg PO Q12HR PRN 12/11/15 12/23/16 1 Day Ago History 50 Insulin NPH Hum/Reg Insulin Hm 40 units SQ QPM 12/12/15 12/23/16 1 Day Ago History [HumuLIN 70-30 Vial] 40 Insulin NPH Hum/Reg Insulin Hm 60 unit SQ QAM 12/12/15 12/23/16 1 Day Ago History [HumuLIN 70-30 Vial] 60 Carvedilol [Coreg] 37.5 mg PO BID 12/23/16 12/23/16 Unknown History Fenofibrate [Tricor] 145 mg PO QDAY 12/23/16 12/23/16 Unknown History Furosemide [Lasix TAB] 80 mg PO BID 12/23/16 12/23/16 Unknown History Metoclopramide HCl [Reglan TAB] 5 mg PO QID 12/23/16 12/23/16 Unknown History Active Meds: Active Medications Acetaminophen (Tylenol) 650 mg HI Q4H PRN PRN Reason: Non Cardiac Pain or Temp>100.5 Albuterol/Ipratropium (Duoneb *Not For Prn Use*) 1 ampul IH BIDRT [facility] Last Admin: 12/22/16 21:09 Dose: 1 ampul Apixaban (Eliquis) 5 mg PO BID [facility] PRN Reason: Protocol Last Admin: 12/22/16 22:53 Dose: 5 mg Atorvastatin Calcium (Lipitor) 10 mg PO DAILY [facility] Bisacodyl (Dulcolax) 10 mg HI QDAY PRN PRN Reason: Constipation Clonidine HCl (Catapres) 0.1 mg PO BID [facility] Last Admin: 12/22/16 23:41 Dose: 0.1 mg Dextrose (D50w (25gm)) 50 ml IV PRN PRN PRN Reason: Hypoglycemia Famotidine (Pepcid) 20 mg PO BID [facility] Last Admin: 12/22/16 22:48 Dose: 20 mg Furosemide (Lasix) 40 mg IV BID [facility] Last Admin: 12/22/16 22:00 Dose: Not Given Hydralazine HCl (Apresoline) 100 mg PO TID [facility] Last Admin: 12/22/16 21:04 Dose: 100 mg Hydrophilic Ointment (Vaseline Lip Therapy) 1 applic TP Q2HR PRN PRN Reason: Dry Lips Last Admin: 12/23/16 01:00 Dose: 1 applic Propofol (Diprivan 10 Mg/Ml) 1,000 mg in 100 mls @ 3.13 mls/hr IV TITR ALETHA; 5 MCG/KG/MIN PRN Reason: Protocol Last Admin: 12/23/16 04:17 Dose: 30 mcg/kg/min, 18.779 mls/hr Sodium Chloride (Nacl 0.9% 1000 Ml) 2,000 mls @ 150 mls/hr IV DIRECT ALETHA Last Admin: 12/22/16 17:00 Dose: 150 mls/hr Vancomycin HCl 1,500 mg/ (Sodium Chloride) 515 mls @ 333.333 mls/hr IV Q12H [facility] Last Admin: 12/23/16 05:35 Dose: 333.333 mls/hr Insulin Aspart (Novolog) 0 units SUB-Q Q4HR [facility] PRN Reason: Protocol Last Admin: 12/23/16 06:23 Dose: 10 units Labetalol HCl (Normodyne) 10 mg IV Q4H PRN PRN Reason: Blood Pressure Levothyroxine Sodium (Synthroid) 100 mcg PO QAM [facility] Lorazepam (Ativan) 1 mg IV Q4H PRN PRN Reason: Agitation Metoprolol Tartrate (Lopressor) 12.5 mg PO BID [facility] Last Admin: 12/22/16 23:41 Dose: 12.5 mg Multi-Ingred Cream/Lotion/Oil/Oint (Artificial Tears Ophth Oint) 1 applic OU Q4HR PRN PRN Reason: Dry Eye(s) Last Admin: 12/22/16 16:33 Dose: 1 applic Potassium Chloride (K-Dur) 20 meq PO BID [facility] Last Admin: 12/22/16 22:48 Dose: 20 meq Sildenafil Citrate (Revatio) 20 mg PO TID [facility] Last Admin: 12/22/16 22:54 Dose: 20 mg Sodium Chloride (Nacl 0.9% 500 Ml) 1 ml IV DIRECT ALETHA Vancomycin HCl (Vancomycin Pharmacy To Dose) 1 each IV PKCONSULT ALETHA PRN Reason: Protocol Physical Examination Vital Signs Pulse Ox 76 L 12/22/16 14:38 General appearance: other (intubated on mechanical ventilation) Cardiac: Positive: irregularly irregular Results 12/23/16 03:09 12/23/16 03:09 CBC 12/23/16 Range/Units 03:09 WBC 10.7 (4.5-11.0) K/mm3 RBC 4.63 (3.65-5.03) M/mm3 Hgb 11.7 (10.1-14.3) gm/dl Hct 36.2 (30.3-42.9) % Plt Count 221 (140-440) K/mm3 Comprehensive Metabolic Panel 12/22/16 12/23/16 Range/Units 17:34 03:09 Sodium 132 L 138 (137-145) mmol/L Potassium 4.7 D 4.0 (3.6-5.0) mmol/L Chloride 91.3 L 102.2 (98-107) mmol/L Carbon Dioxide 23 20 L (22-30) mmol/L BUN 14 12 (7-17) mg/dL Creatinine 1.2 0.8 (0.7-1.2) mg/dL Glucose 661 H* 338 H (65-100) mg/dL Calcium 8.5 8.1 L (8.4-10.2) mg/dL Assessment and Plan Acute respiratory failure intubated on the vent Altered mental status no acute intracranial process on head CT Lactic acidosis Diabetes mellitus -uncontrolled Hypertension Persistent Afib on eliquis at home for anticoagulation CHF, diastolic EF 45-50% on echo 04/2016 no reversible ischemia on MPI 12/2015 Pulmonary HTN
--- NOTE | 2016-12-23 09:54 | XRay Report ---
Single view chest: Compared to 12/22/16. History: Followup of respiratory failure. Findings: Cardiomegaly. Stable support system. No consolidation, pneumothorax or pleural effusion. Impression: Cardiomegaly. No acute lung changes.
[2016-12-23] MEDS: PEPCID PO SCH ×2 (10:50→21:09)
[2016-12-23] MEDS: SYNTHROID PO SCH (10:50)
[2016-12-23] MEDS: LASIX IV SCH ×2 (10:50→21:16)
[2016-12-23] MEDS: LOPRESSOR PO SCH (10:50)
[2016-12-23] MEDS: REVATIO PO SCH ×3 (10:50→21:09)
[2016-12-23] MEDS: APRESOLINE PO SCH ×2 (10:50→17:00)
[2016-12-23] MEDS: ELIQUIS PO SCH ×2 (10:51→21:10)
[2016-12-23] MEDS: CATAPRES PO SCH (10:51)
--- NOTE | 2016-12-23 12:45 | Consultation ---
History of Present Illness Consult date: 12/23/16 Requesting physician: BERONICA HERNANDEZ Reason for consult: hypoxemia History of present illness: 71 y/o female, found down at home, admitted to the ICU with hypoxic respiratory failure and encephalopathy. Unknown down time but breathing. Intubated in the ED. Was hypertensive on admission. CT head was negative. Patient with multiple other comorbidities. Currently intubated and sedated. per nursing, on sedation vacation this am, patient is awake and alert and follows commands. Son at bedside is not sure who prescribed the CPAP/BIPAP therapy for his mother but he states she uses it every night and PRN throughout the day with naps. Remainder is negative. Past History Past Medical History: atrial fib, CAD, diabetes, hypertension, other (OSB, CHF, old CVA) Past Surgical History: appendectomy, hysterectomy Social history: no significant social history Family history: hypertension Medications and Allergies Allergies Allergy/AdvReac Type Severity Reaction Status Date / Time codeine Allergy Vomiting Verified 12/11/15 21:21 Home Medications Medication Instructions Recorded Confirmed Last Taken Type Albuterol Sulfate [Ventolin HFA] 2 puff IH Q4H PRN 12/11/15 12/23/16 1 Week Ago History 8 Apixaban [Eliquis] 5 mg PO BID 12/11/15 12/23/16 1 Day Ago History 5 Aspirin [Aspirin BABY CHEW TAB] 162 mg PO QDAY 12/11/15 12/23/16 1 Day Ago History 81 AtorvaSTATin [Lipitor] 10 mg PO DAILY 12/11/15 12/23/16 1 Day Ago History 10 Citalopram [Celexa] 20 mg PO QDAY 12/11/15 12/23/16 1 Day Ago History 20 Docusate Sodium [Dok] 100 mg PO DAILY PRN 12/11/15 12/23/16 1 Day Ago History 100 Levothyroxine [Synthroid] 100 mcg PO QAM 12/11/15 12/23/16 1 Day Ago History 100 Potassium Chloride [K-Dur] 20 meq PO BID 12/11/15 12/23/16 1 Day Ago History 20 Sildenafil [Revatio] 20 mg PO TID 12/11/15 12/23/16 1 Day Ago History 20 cloNIDine [Catapres] 0.1 mg PO BID 12/11/15 12/23/16 1 Day Ago History 0.1 hydrALAZINE [Apresoline TAB] 100 mg PO TID 12/11/15 12/23/16 1 Day Ago History 100 traMADol [Ultram 50 MG tab] 50 mg PO Q12HR PRN 12/11/15 12/23/16 1 Day Ago History 50 Insulin NPH Hum/Reg Insulin Hm 40 units SQ QPM 12/12/15 12/23/16 1 Day Ago History [HumuLIN 70-30 Vial] 40 Insulin NPH Hum/Reg Insulin Hm 60 unit SQ QAM 12/12/15 12/23/16 1 Day Ago History [HumuLIN 70-30 Vial] 60 Carvedilol [Coreg] 37.5 mg PO BID 12/23/16 12/23/16 Unknown History Fenofibrate [Tricor] 145 mg PO QDAY 12/23/16 12/23/16 Unknown History Furosemide [Lasix TAB] 80 mg PO BID 12/23/16 12/23/16 Unknown History Metoclopramide HCl [Reglan TAB] 5 mg PO QID 12/23/16 12/23/16 Unknown History Active Meds: Active Medications Acetaminophen (Tylenol) 650 mg [place] Q4H PRN PRN Reason: Non Cardiac Pain or Temp>100.5 Albuterol/Ipratropium (Duoneb *Not For Prn Use*) 1 ampul IH BIDRT [facility] Last Admin: 12/22/16 21:09 Dose: 1 ampul Apixaban (Eliquis) 5 mg PO BID [facility] PRN Reason: Protocol Last Admin: 12/23/16 10:51 Dose: 5 mg Atorvastatin Calcium (Lipitor) 10 mg PO DAILY [facility] Bisacodyl (Dulcolax) 10 mg [place] QDAY PRN PRN Reason: Constipation Clonidine HCl (Catapres) 0.1 mg PO BID [facility] Last Admin: 12/23/16 10:51 Dose: 0.1 mg Dextrose (D50w (25gm)) 50 ml IV PRN PRN PRN Reason: Hypoglycemia Famotidine (Pepcid) 20 mg PO BID [facility] Last Admin: 12/23/16 10:50 Dose: 20 mg Furosemide (Lasix) 40 mg IV BID [facility] Last Admin: 12/23/16 10:50 Dose: 40 mg Hydralazine HCl (Apresoline) 100 mg PO TID [facility] Last Admin: 12/23/16 10:50 Dose: 100 mg Hydrophilic Ointment (Vaseline Lip Therapy) 1 applic TP Q2HR PRN PRN Reason: Dry Lips Last Admin: 12/23/16 01:00 Dose: 1 applic Propofol (Diprivan 10 Mg/Ml) 1,000 mg in 100 mls @ 3.13 mls/hr IV TITR ALETHA; 5 MCG/KG/MIN PRN Reason: Protocol Last Admin: 12/23/16 10:16 Dose: 30 mcg/kg/min, 18.779 mls/hr Sodium Chloride (Nacl 0.9% 1000 Ml) 2,000 mls @ 150 mls/hr IV DIRECT ALETHA Last Admin: 12/22/16 17:00 Dose: 150 mls/hr Vancomycin HCl 1,500 mg/ (Sodium Chloride) 515 mls @ 333.333 mls/hr IV Q12H [facility] Last Admin: 12/23/16 05:35 Dose: 333.333 mls/hr Insulin Aspart (Novolog) 0 units SUB-Q Q4HR ALETHA PRN Reason: Protocol Last Admin: 12/23/16 10:48 Dose: 6 units Labetalol HCl (Normodyne) 10 mg IV Q4H PRN PRN Reason: Blood Pressure Levothyroxine Sodium (Synthroid) 100 mcg PO QAM [facility] Last Admin: 12/23/16 10:50 Dose: 100 mcg Lorazepam (Ativan) 1 mg IV Q4H PRN PRN Reason: Agitation Metoprolol Tartrate (Lopressor) 12.5 mg PO BID [facility] Last Admin: 12/23/16 10:50 Dose: 12.5 mg Multi-Ingred Cream/Lotion/Oil/Oint (Artificial Tears Ophth Oint) 1 applic OU Q4HR PRN PRN Reason: Dry Eye(s) Last Admin: 12/22/16 16:33 Dose: 1 applic Potassium Chloride (Potassium Chloride) 20 meq FEEDTUBE BID ALETHA Sildenafil Citrate (Revatio) 20 mg PO TID [facility] Last Admin: 12/23/16 10:50 Dose: 20 mg Sodium Chloride (Nacl 0.9% 500 Ml) 1 ml IV DIRECT ALETHA Vancomycin HCl (Vancomycin Pharmacy To Dose) 1 each IV PKCONSULT ALETHA PRN Reason: Protocol Review of Systems ROS unobtainable: due to endotracheal tube, due to mental status Physical Examination Vital signs: Vital Signs Pulse Ox 76 L 12/22/16 14:38 General appearance: no acute distress, comatose Eyes: non-icteric ENT: other (orally intubated and sedated) Neck: supple Effort: normal Ascultation: Bilateral: clear Percussion: Bilateral: not dull Cardiovascular: regular rate and rhythm Gastrointestinal: normoactive bowel sounds, other (obese) Integumentary: normal unable to assess Results - Laboratory Findings CBC and BMP: 12/23/16 03:09 12/23/16 03:09 ABG POC ABG pH 7.449 (7.35-7.45) 12/23/16 04:42 POC ABG pCO2 33.9 (35-45) L 12/23/16 04:42 POC ABG pO2 122 (80-105) H 12/23/16 04:42 POC ABG HCO3 23.5 12/23/16 04:42 POC ABG Total CO2 25 12/23/16 04:42 POC ABG O2 Sat 99 12/23/16 04:42 PT/INR, D-dimer PT 15.0 Sec. (12.2-14.9) H 12/22/16 14:40 INR 1.12 (0.87-1.13) 12/22/16 14:40 Abnormal lab findings: Abnormal Labs 12/22/16 12/22/16 12/22/16 17:34 19:45 21:35 MCV MCH RDW POC ABG pCO2 POC ABG pO2 Sodium 132 L Chloride 91.3 L Carbon Dioxide Glucose 661 H* POC Glucose 497 H Lactic Acid 2.10 H* Calcium 12/22/16 12/23/16 12/23/16 22:11 02:56 03:09 MCV 78 L MCH 25 L RDW 17.5 H POC ABG pCO2 POC ABG pO2 Sodium Chloride Carbon Dioxide Glucose POC Glucose 458 H 377 H Lactic Acid Calcium 12/23/16 12/23/16 12/23/16 03:09 03:09 04:42 MCV MCH RDW POC ABG pCO2 33.9 L POC ABG pO2 122 H Sodium Chloride Carbon Dioxide 20 L Glucose 338 H POC Glucose Lactic Acid 2.10 H* Calcium 8.1 L 12/23/16 12/23/16 06:20 10:21 MCV MCH RDW POC ABG pCO2 POC ABG pO2 Sodium Chloride Carbon Dioxide Glucose POC Glucose 322 H 248 H Lactic Acid Calcium - Diagnostic Findings Chest x-ray: report reviewed (clear, cardiomegaly) Assessment and Plan 71 y/o female with acute hypoxic respiratory failure of unknown etiology, encephalopathy and lactic acidosis. 1. Stop sedation and attempt extubation. Will order CPAP/BIPAP therapy qhs and PRN. Son does not know settings. Will adjust to comfort and titrate to keep sats >88% 2. Diuresis and net negative state essential 3. Diabetes needs better control. Need to consider long acting insulin vs PO therapy. Will defer to IMS 4. Acidosis improving, could have been from poor forward flow given heart failure diagnosis and with elevated BNP, appears to be in heart failure. 5. If successful, attempt bedside swallow and feed. 6. DVT prophy with SDC's and chemicals if clinically indicated. CCT 31 minutes
[2016-12-23] MEDS: DUONEB *Not for PRN Use IH SCH ×2 (13:33→20:45)
[2016-12-23] MEDS ORDERED: PANCREAZE DR 10,500 UNIT FEEDTUBE PRN (15:02)
[2016-12-23] MEDS ORDERED: SIMPLE SYRUP FEEDTUBE PRN ×2 (15:02)
[2016-12-23] MEDS ORDERED: SODIUM BICARBONATE FEEDTUBE PRN (15:02)
[2016-12-23] MEDS: POTASSIUM CHLORIDE FEEDTUBE SCH (18:10)
--- NOTE | 2016-12-23 19:29 | Progress Note ---
Assessment and Plan Assessment and plan: 71 years old obese -[place] female found down, intubated in ER for airway protection 1. Acute hypoxic respiratory failure Likely secondary to CHF exacerbation Evaluated by pulmonary and plan to extubate later today 2. Acute on chronic systolic heart failure Continue diuresis with IV Lasix Strict monitor I/O 3. Atrial fibrillation Rate controlled On Eliquis for anticoagulation 4. Diabetes Start long-acting insulin along with SSI to assess insulin requirements 5. Lactic acidosis No symptoms/signs of infection 6. Hypokalemia Replace and recheck 7. DVT prophylaxis Anticoagulated with Eliquis 8. Full code CC 31min History Interval history: intubated, sedation off this morning and started to wake up and follow commands Hospitalist Physical - Constitutional Vitals: Temp Pulse Resp BP Pulse Ox 99.1 F 108 H 20 136/77 95 12/23/16 15:51 12/23/16 13:41 12/23/16 13:41 12/23/16 10:51 12/23/16 13:00 General appearance: Present: no acute distress, obese, other (intubated on mechanical ventilation) - EENT Eyes: Present: PERRL, EOM intact. Absent: scleral icterus, conjunctival injection - Neck Neck: Present: supple, normal ROM. Absent: masses or JVD - Respiratory Respiratory effort: other (unbent) Respiratory: bilateral: diminished, rhonchi, negative: wheezing - Cardiovascular Rhythm: irregularly irregular Heart Sounds: Present: S1 & S2. Absent: systolic murmur - Extremities Extremities: no ischemia - Abdominal General gastrointestinal: soft, non-tender, non-distended, normal bowel sounds - Neurologic Neurologic: moves all extremities Results - Labs CBC & Chem 7: 12/25/16 07:13 12/25/16 07:13 Labs: Laboratory Last Values WBC 10.7 K/mm3 (4.5-11.0) 12/23/16 03:09 RBC 4.63 M/mm3 (3.65-5.03) 12/23/16 03:09 Hgb 11.7 gm/dl (10.1-14.3) 12/23/16 03:09 Hct 36.2 % (30.3-42.9) 12/23/16 03:09 MCV 78 fl (79-97) L 12/23/16 03:09 MCH 25 pg (28-32) L 12/23/16 03:09 MCHC 33 % (30-34) 12/23/16 03:09 RDW 17.5 % (13.2-15.2) H 12/23/16 03:09 Plt Count 221 K/mm3 (140-440) 12/23/16 03:09 Lymph % (Auto) General Repairer 12/22/16 14:40 Lymph # General Repairer 12/22/16 14:40 Add Manual Diff Complete 12/22/16 14:40 Total Counted 100 12/22/16 14:40 Seg Neutrophils % General Repairer 12/22/16 14:40 Seg Neuts % (Manual) 39.0 % (40.0-70.0) L 12/22/16 14:40 Band Neutrophils % 0 % 12/22/16 14:40 Lymphocytes % (Manual) 49.0 % (13.4-35.0) H 12/22/16 14:40 Reactive Lymphs % (Man) 0 % 12/22/16 14:40 Monocytes % (Manual) 9.0 % (0.0-7.3) H 12/22/16 14:40 Eosinophils % (Manual) 2.0 % (0.0-4.3) 12/22/16 14:40 Basophils % (Manual) 0 % (0.0-1.8) 12/22/16 14:40 Metamyelocytes % 1.0 % 12/22/16 14:40 Myelocytes % 0 % 12/22/16 14:40 Promyelocytes % 0 % 12/22/16 14:40 Blast Cells % 0 % 12/22/16 14:40 Nucleated RBC % Not Reportable 12/22/16 14:40 Seg Neutrophils # Man 3.5 K/mm3 (1.8-7.7) 12/22/16 14:40 Band Neutrophils # 0.0 K/mm3 12/22/16 14:40 Lymphocytes # (Manual) 4.5 K/mm3 (1.2-5.4) 12/22/16 14:40 Abs React Lymphs (Man) 0.0 K/mm3 12/22/16 14:40 Monocytes # (Manual) 0.8 K/mm3 (0.0-0.8) 12/22/16 14:40 Eosinophils # (Manual) 0.2 K/mm3 (0.0-0.4) 12/22/16 14:40 Basophils # (Manual) 0.0 K/mm3 (0.0-0.1) 12/22/16 14:40 Metamyelocytes # 0.1 K/mm3 12/22/16 14:40 Myelocytes # 0.0 K/mm3 12/22/16 14:40 Promyelocytes # 0.0 K/mm3 12/22/16 14:40 Blast Cells # 0.0 K/mm3 12/22/16 14:40 WBC Morphology Not Reportable 12/22/16 14:40 Hypersegmented Neuts Not Reportable 12/22/16 14:40 Hyposegmented Neuts Not Reportable 12/22/16 14:40 Hypogranular Neuts Not Reportable 12/22/16 14:40 Smudge Cells Not Reportable 12/22/16 14:40 Toxic Granulation Not Reportable 12/22/16 14:40 Toxic Vacuolation Not Reportable 12/22/16 14:40 Dohle Bodies Not Reportable 12/22/16 14:40 Pelger-Huet Anomaly Not Reportable 12/22/16 14:40 Melba Rods Not Reportable 12/22/16 14:40 Platelet Estimate Consistent w auto 12/22/16 14:40 Clumped Platelets Not Reportable 12/22/16 14:40 Plt Clumps, EDTA Not Reportable 12/22/16 14:40 Large Platelets 1+ 12/22/16 14:40 Giant Platelets Not Reportable 12/22/16 14:40 Platelet Satelliting Not Reportable 12/22/16 14:40 Plt Morphology Comment Not Reportable 12/22/16 14:40 RBC Morphology Not Reportable 12/22/16 14:40 Dimorphic RBCs Not Reportable 12/22/16 14:40 Polychromasia Not Reportable 12/22/16 14:40 Hypochromasia 1+ 12/22/16 14:40 Poikilocytosis Not Reportable 12/22/16 14:40 Anisocytosis 1+ 12/22/16 14:40 Microcytosis Not Reportable 12/22/16 14:40 Macrocytosis Not Reportable 12/22/16 14:40 Spherocytes Not Reportable 12/22/16 14:40 Pappenheimer Bodies Not Reportable 12/22/16 14:40 Sickle Cells Not Reportable 12/22/16 14:40 Target Cells Not Reportable 12/22/16 14:40 Tear Drop Cells Not Reportable 12/22/16 14:40 Ovalocytes 1+ 12/22/16 14:40 Helmet Cells Not Reportable 12/22/16 14:40 [place] Bodies Not Reportable 12/22/16 14:40 [place] Rings Not Reportable 12/22/16 14:40 Rere Cells Not Reportable 12/22/16 14:40 Bite Cells Not Reportable 12/22/16 14:40 Crenated Cell Not Reportable 12/22/16 14:40 Elliptocytes Not Reportable 12/22/16 14:40 Acanthocytes (Spur) Not Reportable 12/22/16 14:40 Rouleaux Not Reportable 12/22/16 14:40 Hemoglobin C Crystals Not Reportable 12/22/16 14:40 Schistocytes Not Reportable 12/22/16 14:40 Malaria parasites Not Reportable 12/22/16 14:40 Germain Bodies Not Reportable 12/22/16 14:40 Hem Pathologist Commnt No 12/22/16 14:40 PT 15.0 Sec. (12.2-14.9) H 12/22/16 14:40 INR 1.12 (0.87-1.13) 12/22/16 14:40 APTT 29.5 Sec. (24.2-36.6) 12/22/16 14:40 Thrombin Time 18.4 Sec. (15.1-19.6) 12/22/16 14:40 POC ABG pH 7.449 (7.35-7.45) 12/23/16 04:42 POC ABG pCO2 33.9 (35-45) L 12/23/16 04:42 POC ABG pO2 122 (80-105) H 12/23/16 04:42 POC ABG HCO3 23.5 12/23/16 04:42 POC ABG Total CO2 25 12/23/16 04:42 POC ABG O2 Sat 99 12/23/16 04:42 POC ABG Base Excess -1 12/23/16 04:42 FiO2 50 % 12/23/16 04:42 Sodium 138 mmol/L (137-145) 12/23/16 03:09 Potassium 4.0 mmol/L (3.6-5.0) 12/23/16 03:09 Chloride 102.2 mmol/L (98-107) 12/23/16 03:09 Carbon Dioxide 20 mmol/L (22-30) L 12/23/16 03:09 Anion Gap 20 mmol/L 12/23/16 03:09 BUN 12 mg/dL (7-17) 12/23/16 03:09 Creatinine 0.8 mg/dL (0.7-1.2) 12/23/16 03:09 Estimated GFR > 60 ml/min 12/23/16 03:09 BUN/Creatinine Ratio 15.00 % 12/23/16 03:09 Glucose 338 mg/dL (65-100) H 12/23/16 03:09 POC Glucose 146 (70-105) H 12/23/16 18:05 Ketones Quantitative Negative (Negative) 12/22/16 14:40 Lactic Acid 2.10 mmol/L (0.7-2.0) H* 12/23/16 03:09 Calcium 8.1 mg/dL (8.4-10.2) L 12/23/16 03:09 Total Bilirubin 0.70 mg/dL (0.1-1.2) 12/22/16 14:40 Direct Bilirubin < 0.2 mg/dL (0-0.2) 12/22/16 14:40 Indirect Bilirubin 0.5 mg/dL 12/22/16 14:40 AST 12 units/L (5-40) 12/22/16 14:40 ALT 15 units/L (7-56) 12/22/16 14:40 Alkaline Phosphatase 108 units/L (35-129) 12/22/16 14:40 Total Creatine Kinase 67 units/L (30-135) 12/22/16 14:40 CK-MB (CK-2) 1.3 ng/mL (0.0-4.0) 12/22/16 14:40 CK-MB (CK-2) Rel Index 1.9 (0-4) 12/22/16 14:40 Troponin T < 0.010 ng/mL (0.00-0.029) 12/22/16 14:40 NT-Pro-B Natriuret Pep 1966 pg/mL (0-900) H 12/22/16 14:40 Total Protein 7.3 g/dL (6.3-8.2) 12/22/16 14:40 Albumin 3.7 g/dL (3.9-5) L 12/22/16 14:40 Albumin/Globulin Ratio 1.0 % 12/22/16 14:40
[2016-12-24] MEDS: CATAPRES PO SCH ×3 (00:55→21:10)
[2016-12-24] MEDS: APRESOLINE PO SCH ×4 (00:55→21:10)
[2016-12-24] MEDS: POTASSIUM CHLORIDE FEEDTUBE SCH ×3 (00:57→21:10)
[2016-12-24] MEDS: NOVOLOG SUB-Q SCH ×5 (00:58→22:37)
[2016-12-24] MEDS: LOPRESSOR PO SCH ×4 (02:07→21:36)
[2016-12-24] MEDS: VANCOMYCIN 1,500 MG in NACL 0.9% 500 ML 500 ML IV SCH (05:17)
[2016-12-24] MEDS: DUONEB *Not for PRN Use IH SCH ×2 (07:55→19:16)
--- NOTE | 2016-12-24 07:58 | Progress Note ---
Assessment and Plan Acute respiratory failure Resolved Altered mental status no acute intracranial process on head CT Lactic acidosis Diabetes mellitus - uncontrolled Hypertension Persistent Afib on eliquis for anticoagulation CHF, diastolic EF 45-50% on echo 04/2016 no reversible ischemia on MPI 12/2015 Pulmonary HTN Recommendations: Continue medical therapy No need for further cardiac intervention Subjective Date of service: 12/24/16 Principal diagnosis: AMS Interval history: Patient is doing much better. She was extubated. She denies chest pain or shortness of breath Objective Vital Signs Temp Pulse Pulse Resp Resp Resp BP 12/24/16 07:57 12/24/16 07:56 93 H 18 12/24/16 06:10 93 H 25 H 124/82 12/24/16 06:00 93 H 12 124/82 12/24/16 05:50 99 H 25 H 141/74 12/24/16 05:40 90 15 141/74 12/24/16 05:30 86 25 H 141/74 12/24/16 05:20 89 25 H 137/83 12/24/16 05:10 83 26 H 137/83 12/24/16 05:00 100 H 26 H 137/83 12/24/16 04:50 94 H 26 H 131/79 12/24/16 04:40 95 H 27 H 131/79 12/24/16 04:30 85 24 131/79 12/24/16 04:20 89 28 H 139/77 12/24/16 04:16 97.6 F 12/24/16 04:10 92 H 22 139/77 12/24/16 04:00 105 H 26 H 139/77 12/24/16 03:50 88 25 H 137/80 12/24/16 03:40 95 H 27 H 137/80 12/24/16 03:30 96 H 29 H 137/80 12/24/16 03:29 12/24/16 03:20 87 25 H 126/68 12/24/16 03:10 95 H 17 126/68 12/24/16 03:00 97.6 F 97 H 11 L 126/68 12/24/16 02:50 93 H 25 H 128/79 12/24/16 02:40 128/79 12/24/16 02:30 128/79 12/24/16 02:20 133/80 12/24/16 02:10 133/80 12/24/16 02:07 134 H 133/80 12/24/16 02:00 112 H 24 133/80 12/24/16 01:50 124 H 27 H 127/81 12/24/16 01:40 109 H 26 H 127/81 12/24/16 01:30 119 H 27 H 125/72 12/24/16 01:20 118 H 26 H 110/63 12/24/16 01:10 102 H 26 H 110/63 12/24/16 01:00 105 H 16 110/63 12/24/16 00:55 106 H 104/74 12/24/16 00:50 113 H 29 H 125/72 12/24/16 00:40 125 H 28 H 125/72 12/24/16 00:30 121 H 26 H 125/72 12/24/16 00:20 133 H 27 H 123/74 12/24/16 00:10 116 H 25 H 123/74 12/24/16 00:00 126 H 23 123/74 12/23/16 23:50 135 H 25 H 113/66 12/23/16 23:43 98.7 F 12/23/16 23:40 132 H 25 H 113/66 12/23/16 23:30 131 H 25 H 113/66 12/23/16 23:20 123 H 25 H 104/63 12/23/16 23:10 123 H 26 H 104/63 12/23/16 23:00 136 H 28 H 104/63 12/23/16 22:50 119 H 22 122/67 12/23/16 22:40 128 H 24 122/67 12/23/16 22:30 139 H 24 122/67 12/23/16 22:20 125 H 24 113/59 12/23/16 22:10 105 H 23 113/59 12/23/16 22:00 113 H 26 H 113/59 12/23/16 21:50 122 H 23 95/68 12/23/16 21:40 102 H 19 95/68 12/23/16 21:30 113 H 24 95/68 12/23/16 21:20 119 H 19 104/64 12/23/16 21:10 104 H 16 104/64 12/23/16 21:01 12/23/16 21:00 99 H 28 H 104/64 12/23/16 20:59 103 H 26 H 117/69 12/23/16 20:58 109 H 26 H 12/23/16 20:50 110 H 17 117/69 12/23/16 20:47 100 H 20 12/23/16 20:40 104 H 27 H 117/69 12/23/16 20:30 93 H 25 H 117/69 12/23/16 20:20 97 H 27 H 115/68 12/23/16 20:10 117 H 27 H 115/68 12/23/16 20:00 98.5 F 98 H 20 115/68 12/23/16 19:50 109 H 27 H 113/67 12/23/16 19:40 103 H 26 H 113/67 12/23/16 19:30 103 H 27 H 113/67 12/23/16 19:20 118 H 27 H 107/58 12/23/16 19:10 102 H 27 H 107/58 12/23/16 19:00 87 25 H 107/58 12/23/16 18:50 111 H 25 H 122/67 12/23/16 18:40 97 H 26 H 122/67 12/23/16 18:30 91 H 30 H 122/67 12/23/16 18:20 84 21 125/80 12/23/16 18:10 105 H 28 H 125/80 12/23/16 18:00 103 H 28 H 125/80 12/23/16 17:50 114 H 23 131/84 12/23/16 17:40 98 H 27 H 131/84 12/23/16 17:30 85 22 131/84 12/23/16 17:20 83 26 H 131/84 12/23/16 17:10 90 27 H 131/84 12/23/16 17:00 87 26 H 131/84 12/23/16 16:50 85 24 131/84 12/23/16 16:40 94 H 25 H 131/84 12/23/16 16:30 113 H 28 H 131/84 12/23/16 16:20 92 H 28 H 131/84 12/23/16 16:10 102 H 28 H 131/84 12/23/16 16:00 100 H 27 H 131/84 12/23/16 15:51 99.1 F 12/23/16 15:50 103 H 26 H 131/84 08/18/17 15:40 97 H 25 H 131/84 12/23/16 15:30 96 H 28 H 131/84 12/23/16 15:20 110 H 27 H 147/102 12/23/16 15:10 114 H 25 H 147/102 12/23/16 15:00 112 H 30 H 147/102 12/23/16 14:50 114 H 33 H 140/92 12/23/16 14:40 123 H 27 H 140/92 12/23/16 14:30 126 H 25 H 140/92 12/23/16 14:20 114 H 13 151/87 12/23/16 14:10 125 H 31 H 151/87 12/23/16 14:00 119 H 25 H 151/87 12/23/16 13:50 127 H 30 H 151/87 12/23/16 13:41 108 H 20 12/23/16 13:40 110 H 29 H 152/92 12/23/16 13:30 125 H 24 152/92 12/23/16 13:25 116 H 24 12/23/16 13:20 100 H 31 H 155/88 12/23/16 13:10 90 32 H 146/89 12/23/16 13:00 101 H 29 H 147/84 12/23/16 12:50 109 H 29 H 146/89 12/23/16 12:40 89 28 H 141/75 12/23/16 12:33 12/23/16 12:30 92 H 23 141/81 12/23/16 12:20 97 H 19 141/75 12/23/16 12:10 93 H 33 H 117/70 12/23/16 12:05 32 H 12/23/16 12:00 98.6 F 90 21 138/69 12/23/16 10:51 87 136/77 12/23/16 10:50 87 136/77 12/23/16 10:16 22 12/23/16 10:00 87 22 12/23/16 09:00 98.7 F 12/23/16 08:38 79 154/92 12/23/16 08:04 75 140/87 Pulse Ox 12/24/16 07:57 96 12/24/16 07:56 12/24/16 06:10 97 12/24/16 06:00 97 12/24/16 05:50 100 12/24/16 05:40 100 12/24/16 05:30 98 12/24/16 05:20 100 12/24/16 05:10 99 12/24/16 05:00 99 12/24/16 04:50 99 12/24/16 04:40 99 12/24/16 04:30 100 12/24/16 04:20 100 12/24/16 04:16 12/24/16 04:10 99 12/24/16 04:00 98 12/24/16 03:50 98 12/24/16 03:40 99 12/24/16 03:30 99 12/24/16 03:29 98 12/24/16 03:20 99 12/24/16 03:10 99 12/24/16 03:00 100 12/24/16 02:50 99 12/24/16 02:40 100 12/24/16 02:30 100 12/24/16 02:20 100 12/24/16 02:10 99 12/24/16 02:07 12/24/16 02:00 99 12/24/16 01:50 98 12/24/16 01:40 99 12/24/16 01:30 99 12/24/16 01:20 100 12/24/16 01:10 100 12/24/16 01:00 99 12/24/16 00:55 12/24/16 00:50 98 12/24/16 00:40 99 12/24/16 00:30 100 12/24/16 00:20 99 12/24/16 00:10 98 12/24/16 00:00 98 12/23/16 23:50 98 17 23:43 12/23/16 23:40 98 17 23:30 99 17 23:20 99 17 23:10 99 17 23:00 99 17 22:50 98 17 22:40 99 17 22:30 99 17 22:20 99 1817 22:10 100 1817 22:00 100 17 21:50 100 17 21:40 94 08/18/17 21:30 100 08/18/17 21:20 100 18/17 21:10 98 18/17 21:01 98 18/17 21:00 99 18/17 20:59 98 18/17 20:58 18/17 20:50 97 18/17 20:47 18/17 20:40 97 18/17 20:30 98 18/17 20:20 98 18/17 20:10 97 18/17 20:00 99 18/17 19:50 97 18/17 19:40 97 18/17 19:30 98 18/17 19:20 98 18/17 19:10 96 18/17 19:00 98 18/17 18:50 97 18/17 18:40 98 18/17 18:30 98 18/17 18:20 98 18/17 18:10 99 18/17 18:00 98 18/17 17:50 97 18/17 17:40 97 18/17 17:30 99 18/17 17:20 98 18/17 17:10 99 18/17 17:00 99 18/17 16:50 99 18/17 16:40 98 18/17 16:30 98 18/17 16:20 99 18/17 16:10 98 18/17 16:00 99 18/17 15:51 18/17 15:50 99 18/17 15:40 98 18/17 15:30 98 /18/17 15:20 97 18/17 15:10 98 /18/17 15:00 97 18/17 14:50 96 /18/17 14:40 96 /18/17 14:30 93 /18/17 14:20 94 /18/17 14:10 96 /18/17 14:00 96 18/17 13:50 96 /18/17 13:41 /18/17 13:40 96 /18/17 13:30 96 /18/17 13:25 /18/17 13:20 96 12/23/16 13:10 96 12/23/16 13:00 96 12/23/16 12:50 96 12/23/16 12:40 95 12/23/16 12:33 95 12/23/16 12:30 94 12/23/16 12:20 12/23/16 12:10 93 12/23/16 12:05 12/23/16 12:00 98 12/23/16 10:51 12/23/16 10:50 12/23/16 10:16 12/23/16 10:00 12/23/16 09:00 100 12/23/16 08:38 99 12/23/16 08:04 99 - Physical Examination General: Appears Well HEENT: Positive: PERRL Neck: Positive: neck supple Cardiac: Positive: irregularly irregular Lungs: Positive: Normal Breath Sounds Abdomen: Positive: Unremarkable Extremities: Absent: edema - Imaging and Cardiology EKG: report reviewed
[2016-12-24] MEDS: REVATIO PO SCH ×2 (08:30→14:21)
[2016-12-24 09:21] LABS: Hematocrit 36.8 % (30.3-42.9); Hemoglobin 11.5 gm/dl (10.1-14.3); Mean Corpuscular HGB Conc 31 % (30-34); Mean Corpuscular Volume 78 fl (79-97); Platelet Count 182 K/mm3 (140-440); Red Cell Distribution Width 18.3 % (13.2-15.2); White Blood Count 7.9 K/mm3 (4.5-11.0)
[2016-12-24 09:32] LABS: Mean Corpuscular Hemoglobin 25 pg (28-32)
[2016-12-24 09:33] LABS: BUN/Creatinine Ratio 8.12; Calcium 8.2 mg/dL (8.4-10.2); Chloride 104.8 mmol/L (98-107); Potassium 3.5 mmol/L (3.6-5.0)
--- NOTE | 2016-12-24 09:54 | XRay Report ---
AP CHEST :12/24/16 CLINICAL: Followup respiratory failure. COMPARISON:12/23/16 FINDINGS: Since the prior exam, the endotracheal tube has been removed. Stable cardiomegaly. Slightly increased central vascular congestion which may be due to differences in technique. Stable mild bilateral interstitial lung opacities. No tubes or lines. IMPRESSION: Mild CHF and no change since extubation.
--- NOTE | 2016-12-24 10:31 | Progress Note ---
Assessment and Plan 71 y/o female with acute hypoxic respiratory failure of unknown etiology, encephalopathy and lactic acidosis. 1. continue PPV therapy at night and PRN. Patient can use home bipap machine 2. Diuresis and net negative state essential 3. Diabetes needs better control. Need to consider long acting insulin vs PO therapy. Will defer to IMS 4. MOnitor renal function, may need to back off of lasix some, although patient was on high doses as an outpatient 5. Agree with transfer Subjective Date of service: 12/24/16 Principal diagnosis: AMS Interval history: Successful extubation on yesterday. Wore PPV at night and tolerated. Small bump in Cr this am, likely secondary to diuresis. Objective Vital Signs - 12hr 12/23/16 12/23/16 12/23/16 22:30 22:40 22:50 Temperature Pulse Rate 139 H 128 H 119 H Pulse Rate [ Anterior Bilateral Throughout] Respiratory 24 24 22 Rate Respiratory Rate [Anterior Bilateral Throughout] Blood Pressure 122/67 122/67 122/67 O2 Sat by Pulse 99 99 98 Oximetry 12/23/16 12/23/16 12/23/16 23:00 23:10 23:20 Temperature Pulse Rate 136 H 123 H 123 H Pulse Rate [ Anterior Bilateral Throughout] Respiratory 28 H 26 H 25 H Rate Respiratory Rate [Anterior Bilateral Throughout] Blood Pressure 104/63 104/63 104/63 O2 Sat by Pulse 99 99 99 Oximetry 12/23/16 12/23/16 12/23/16 23:30 23:40 23:43 Temperature 98.7 F Pulse Rate 131 H 132 H Pulse Rate [ Anterior Bilateral Throughout] Respiratory 25 H 25 H Rate Respiratory Rate [Anterior Bilateral Throughout] Blood Pressure 113/66 113/66 O2 Sat by Pulse 99 98 Oximetry 12/23/16 12/24/16 12/24/16 23:50 00:00 00:10 Temperature Pulse Rate 135 H 126 H 116 H Pulse Rate [ Anterior Bilateral Throughout] Respiratory 25 H 23 25 H Rate Respiratory Rate [Anterior Bilateral Throughout] Blood Pressure 113/66 123/74 123/74 O2 Sat by Pulse 98 98 98 Oximetry 12/24/16 12/24/16 12/24/16 00:20 00:30 00:40 Temperature Pulse Rate 133 H 121 H 125 H Pulse Rate [ Anterior Bilateral Throughout] Respiratory 27 H 26 H 28 H Rate Respiratory Rate [Anterior Bilateral Throughout] Blood Pressure 123/74 125/72 125/72 O2 Sat by Pulse 99 100 99 Oximetry 12/24/16 12/24/16 12/24/16 00:50 00:55 01:00 Temperature Pulse Rate 113 H 106 H 105 H Pulse Rate [ Anterior Bilateral Throughout] Respiratory 29 H 16 Rate Respiratory Rate [Anterior Bilateral Throughout] Blood Pressure 125/72 104/74 110/63 O2 Sat by Pulse 98 99 Oximetry 12/24/16 12/24/16 12/24/16 01:10 01:20 01:30 Temperature Pulse Rate 102 H 118 H 119 H Pulse Rate [ Anterior Bilateral Throughout] Respiratory 26 H 26 H 27 H Rate Respiratory Rate [Anterior Bilateral Throughout] Blood Pressure 110/63 110/63 125/72 O2 Sat by Pulse 100 100 99 Oximetry 12/24/16 12/24/16 12/24/16 01:40 01:50 02:00 Temperature Pulse Rate 109 H 124 H 112 H Pulse Rate [ Anterior Bilateral Throughout] Respiratory 26 H 27 H 24 Rate Respiratory Rate [Anterior Bilateral Throughout] Blood Pressure 127/81 127/81 133/80 O2 Sat by Pulse 99 98 99 Oximetry 12/24/16 12/24/16 12/24/16 02:07 02:10 02:20 Temperature Pulse Rate 134 H Pulse Rate [ Anterior Bilateral Throughout] Respiratory Rate Respiratory Rate [Anterior Bilateral Throughout] Blood Pressure 133/80 133/80 133/80 O2 Sat by Pulse 99 100 Oximetry 12/24/16 12/24/16 12/24/16 02:30 02:40 02:50 Temperature Pulse Rate 93 H Pulse Rate [ Anterior Bilateral Throughout] Respiratory 25 H Rate Respiratory Rate [Anterior Bilateral Throughout] Blood Pressure 128/79 128/79 128/79 O2 Sat by Pulse 100 100 99 Oximetry 12/24/16 12/24/16 12/24/16 03:00 03:10 03:20 Temperature 97.6 F Pulse Rate 97 H 95 H 87 Pulse Rate [ Anterior Bilateral Throughout] Respiratory 11 L 17 25 H Rate Respiratory Rate [Anterior Bilateral Throughout] Blood Pressure 126/68 126/68 126/68 O2 Sat by Pulse 100 99 99 Oximetry 12/24/16 12/24/16 12/24/16 03:29 03:30 03:40 Temperature Pulse Rate 96 H 95 H Pulse Rate [ Anterior Bilateral Throughout] Respiratory 29 H 27 H Rate Respiratory Rate [Anterior Bilateral Throughout] Blood Pressure 137/80 137/80 O2 Sat by Pulse 98 99 99 Oximetry 12/24/16 12/24/16 12/24/16 03:50 04:00 04:10 Temperature Pulse Rate 88 105 H 92 H Pulse Rate [ Anterior Bilateral Throughout] Respiratory 25 H 26 H 22 Rate Respiratory Rate [Anterior Bilateral Throughout] Blood Pressure 137/80 139/77 139/77 O2 Sat by Pulse 98 98 99 Oximetry 12/24/16 12/24/16 12/24/16 04:16 04:20 04:30 Temperature 97.6 F Pulse Rate 89 85 Pulse Rate [ Anterior Bilateral Throughout] Respiratory 28 H 24 Rate Respiratory Rate [Anterior Bilateral Throughout] Blood Pressure 139/77 131/79 O2 Sat by Pulse 100 100 Oximetry 12/24/16 12/24/16 12/24/16 04:40 04:50 05:00 Temperature Pulse Rate 95 H 94 H 100 H Pulse Rate [ Anterior Bilateral Throughout] Respiratory 27 H 26 H 26 H Rate Respiratory Rate [Anterior Bilateral Throughout] Blood Pressure 131/79 131/79 137/83 O2 Sat by Pulse 99 99 99 Oximetry 12/24/16 12/24/16 12/24/16 05:10 05:20 05:30 Temperature Pulse Rate 83 89 86 Pulse Rate [ Anterior Bilateral Throughout] Respiratory 26 H 25 H 25 H Rate Respiratory Rate [Anterior Bilateral Throughout] Blood Pressure 137/83 137/83 141/74 O2 Sat by Pulse 99 100 98 Oximetry 12/24/16 12/24/16 12/24/16 05:40 05:50 06:00 Temperature Pulse Rate 90 99 H 93 H Pulse Rate [ Anterior Bilateral Throughout] Respiratory 15 25 H 12 Rate Respiratory Rate [Anterior Bilateral Throughout] Blood Pressure 141/74 141/74 124/82 O2 Sat by Pulse 100 100 97 Oximetry 12/24/16 12/24/16 12/24/16 06:10 06:20 06:30 Temperature Pulse Rate 93 H 95 H 86 Pulse Rate [ Anterior Bilateral Throughout] Respiratory 25 H 10 L 16 Rate Respiratory Rate [Anterior Bilateral Throughout] Blood Pressure 124/82 124/82 124/82 O2 Sat by Pulse 97 87 100 Oximetry 12/24/16 12/24/16 12/24/16 06:40 06:50 07:00 Temperature Pulse Rate 93 H 112 H 88 Pulse Rate [ Anterior Bilateral Throughout] Respiratory 26 H 20 19 Rate Respiratory Rate [Anterior Bilateral Throughout] Blood Pressure 160/93 160/93 125/73 O2 Sat by Pulse 100 98 100 Oximetry 12/24/16 12/24/16 12/24/16 07:10 07:20 07:30 Temperature Pulse Rate 101 H Pulse Rate [ Anterior Bilateral Throughout] Respiratory 27 H Rate Respiratory Rate [Anterior Bilateral Throughout] Blood Pressure 125/73 125/73 146/76 O2 Sat by Pulse 100 100 100 Oximetry 12/24/16 12/24/16 12/24/16 07:40 07:50 07:56 Temperature Pulse Rate 93 H 87 Pulse Rate [ 93 H Anterior Bilateral Throughout] Respiratory 26 H 27 H Rate Respiratory 18 Rate [Anterior Bilateral Throughout] Blood Pressure 146/76 146/76 O2 Sat by Pulse 100 99 Oximetry 12/24/16 12/24/16 12/24/16 07:57 08:00 08:01 Temperature Pulse Rate 94 H Pulse Rate [ 95 H Anterior Bilateral Throughout] Respiratory 27 H Rate Respiratory 18 Rate [Anterior Bilateral Throughout] Blood Pressure 146/76 O2 Sat by Pulse 96 98 Oximetry 12/24/16 12/24/16 12/24/16 08:22 08:30 09:00 Temperature 97.2 F L Pulse Rate 91 H 97 H Pulse Rate [ Anterior Bilateral Throughout] Respiratory 20 29 H Rate Respiratory Rate [Anterior Bilateral Throughout] Blood Pressure 154/96 153/72 O2 Sat by Pulse 100 96 Oximetry Constitutional: no acute distress Eyes: non-icteric Neck: supple Effort: normal Ascultation: Bilateral: clear Percussion: Bilateral: not dull Cardiovascular: regular rate and rhythm Gastrointestinal: normoactive bowel sounds, other (obese) Integumentary: normal Neurologic: unable to assess CBC and BMP: 12/24/16 03:52 12/24/16 03:52 ABG, PT/INR, D-dimer: ABG POC ABG pH 7.449 (7.35-7.45) 12/23/16 04:42 POC ABG pCO2 33.9 (35-45) L 12/23/16 04:42 POC ABG pO2 122 (80-105) H 12/23/16 04:42 POC ABG HCO3 23.5 12/23/16 04:42 POC ABG Total CO2 25 12/23/16 04:42 POC ABG O2 Sat 99 12/23/16 04:42 PT/INR, D-dimer PT 15.0 Sec. (12.2-14.9) H 12/22/16 14:40 INR 1.12 (0.87-1.13) 12/22/16 14:40 Abnormal lab findings: Abnormal Labs 12/22/16 12/22/16 12/22/16 17:34 19:45 21:35 MCV MCH RDW POC ABG pCO2 POC ABG pO2 Sodium 132 L Potassium Chloride 91.3 L Carbon Dioxide Creatinine Glucose 661 H* POC Glucose 497 H Lactic Acid 2.10 H* Calcium 12/22/16 12/23/16 12/23/16 22:11 02:56 03:09 MCV 78 L MCH 25 L RDW 17.5 H POC ABG pCO2 POC ABG pO2 Sodium Potassium Chloride Carbon Dioxide Creatinine Glucose POC Glucose 458 H 377 H Lactic Acid Calcium 12/23/16 12/23/16 12/23/16 03:09 03:09 04:42 MCV MCH RDW POC ABG pCO2 33.9 L POC ABG pO2 122 H Sodium Potassium Chloride Carbon Dioxide 20 L Creatinine Glucose 338 H POC Glucose Lactic Acid 2.10 H* Calcium 8.1 L 12/23/16 12/23/16 12/23/16 06:20 10:21 14:04 MCV MCH RDW POC ABG pCO2 POC ABG pO2 Sodium Potassium Chloride Carbon Dioxide Creatinine Glucose POC Glucose 322 H 248 H 215 H Lactic Acid Calcium 12/23/16 12/23/16 12/24/16 18:05 21:26 01:45 MCV MCH RDW POC ABG pCO2 POC ABG pO2 Sodium Potassium Chloride Carbon Dioxide Creatinine Glucose POC Glucose 146 H 202 H 277 H Lactic Acid Calcium 12/24/16 12/24/16 12/24/16 03:52 03:52 05:38 MCV 78 L MCH 25 L RDW 18.3 H POC ABG pCO2 POC ABG pO2 Sodium Potassium 3.5 L Chloride Carbon Dioxide Creatinine 1.6 H D Glucose 113 H POC Glucose 111 H Lactic Acid Calcium 8.2 L
[2016-12-24] MEDS: PEPCID PO SCH ×2 (11:40→21:10)
[2016-12-24] MEDS: LASIX IV SCH ×2 (11:42→21:08)
[2016-12-24] MEDS: SYNTHROID PO SCH (11:42)
[2016-12-24] MEDS: ELIQUIS PO SCH ×2 (11:42→21:11)
[2016-12-24] MEDS ORDERED: CARDIZEM IV ONE (13:32)
[2016-12-24] MEDS ORDERED: LOPRESSOR ONE (13:58)
[2016-12-24] MEDS ORDERED: ULTRAM PO PRN (19:01)
--- NOTE | 2016-12-24 20:49 | Progress Note ---
Assessment and Plan Assessment and plan: 71 years old obese -[place] female found down, intubated in ER for airway protection 1. Acute hypoxic respiratory failure Likely secondary to CHF exacerbation Extubated 12/24 NIPPV QHS and prn 2. Acute on chronic systolic heart failure Continue diuresis with IV Lasix Strict monitor I/O 3. Atrial fibrillation Rate controlled On Eliquis for anticoagulation 4. Acute kidney injury Monitor closely renal function and electrolytes while on diuretics 5. Diabetes Long-acting insulin along with SSI to assess insulin requirements 6. Lactic acidosis No symptoms/signs of infection 7. Hypokalemia Replaced 8. DVT prophylaxis Anticoagulated with Eliquis 9. Full code History Interval history: Extubated yesterday; on BiPAP; doing well Hospitalist Physical - Constitutional Vitals: Temp Pulse Resp BP Pulse Ox 97.3 F L 91 H 26 H 126/76 100 12/24/16 12:00 12/24/16 15:00 12/24/16 15:00 12/24/16 15:00 12/24/16 15:00 General appearance: Present: mild distress, obese - EENT Eyes: Present: PERRL, EOM intact. Absent: scleral icterus, conjunctival injection - Neck Neck: Present: supple, normal ROM. Absent: masses or JVD - Respiratory Respiratory effort: other (on BiPAP) Respiratory: bilateral: diminished, rhonchi, negative: wheezing - Cardiovascular Rhythm: irregularly irregular Heart Sounds: Present: S1 & S2. Absent: systolic murmur - Extremities Extremities: no ischemia Extremity abnormal: edema - Abdominal General gastrointestinal: soft, non-tender, non-distended, normal bowel sounds - Integumentary Integumentary: Present: warm, dry. Absent: jaundice, rash - Psychiatric Psychiatric: cooperative - Neurologic Neurologic: CNII-XII intact, no focal deficits Results - Labs CBC & Chem 7: 12/25/16 07:13 12/25/16 07:13 Labs: Laboratory Last Values WBC 7.9 K/mm3 (4.5-11.0) 12/24/16 Unknown RBC 4.70 M/mm3 (3.65-5.03) 12/24/16 Unknown Hgb 11.5 gm/dl (10.1-14.3) 12/24/16 Unknown Hct 36.8 % (30.3-42.9) 12/24/16 Unknown MCV 78 fl (79-97) L 12/24/16 Unknown MCH 25 pg (28-32) L 12/24/16 Unknown MCHC 31 % (30-34) 12/24/16 Unknown RDW 18.3 % (13.2-15.2) H 12/24/16 Unknown Plt Count 182 K/mm3 (140-440) 12/24/16 Unknown Lymph % (Auto) Container Filler 12/22/16 14:40 Lymph # Container Filler 12/22/16 14:40 Add Manual Diff Complete 12/22/16 14:40 Total Counted 100 12/22/16 14:40 Seg Neutrophils % Container Filler 12/22/16 14:40 Seg Neuts % (Manual) 39.0 % (40.0-70.0) L 12/22/16 14:40 Band Neutrophils % 0 % 12/22/16 14:40 Lymphocytes % (Manual) 49.0 % (13.4-35.0) H 12/22/16 14:40 Reactive Lymphs % (Man) 0 % 12/22/16 14:40 Monocytes % (Manual) 9.0 % (0.0-7.3) H 12/22/16 14:40 Eosinophils % (Manual) 2.0 % (0.0-4.3) 12/22/16 14:40 Basophils % (Manual) 0 % (0.0-1.8) 12/22/16 14:40 Metamyelocytes % 1.0 % 12/22/16 14:40 Myelocytes % 0 % 12/22/16 14:40 Promyelocytes % 0 % 12/22/16 14:40 Blast Cells % 0 % 12/22/16 14:40 Nucleated RBC % Not Reportable 12/22/16 14:40 Seg Neutrophils # Man 3.5 K/mm3 (1.8-7.7) 12/22/16 14:40 Band Neutrophils # 0.0 K/mm3 12/22/16 14:40 Lymphocytes # (Manual) 4.5 K/mm3 (1.2-5.4) 12/22/16 14:40 Abs React Lymphs (Man) 0.0 K/mm3 12/22/16 14:40 Monocytes # (Manual) 0.8 K/mm3 (0.0-0.8) 12/22/16 14:40 Eosinophils # (Manual) 0.2 K/mm3 (0.0-0.4) 12/22/16 14:40 Basophils # (Manual) 0.0 K/mm3 (0.0-0.1) 12/22/16 14:40 Metamyelocytes # 0.1 K/mm3 12/22/16 14:40 Myelocytes # 0.0 K/mm3 12/22/16 14:40 Promyelocytes # 0.0 K/mm3 12/22/16 14:40 Blast Cells # 0.0 K/mm3 12/22/16 14:40 WBC Morphology Not Reportable 12/22/16 14:40 Hypersegmented Neuts Not Reportable 12/22/16 14:40 Hyposegmented Neuts Not Reportable 12/22/16 14:40 Hypogranular Neuts Not Reportable 12/22/16 14:40 Smudge Cells Not Reportable 12/22/16 14:40 Toxic Granulation Not Reportable 12/22/16 14:40 Toxic Vacuolation Not Reportable 12/22/16 14:40 Dohle Bodies Not Reportable 12/22/16 14:40 Pelger-Huet Anomaly Not Reportable 12/22/16 14:40 Melba Rods Not Reportable 12/22/16 14:40 Platelet Estimate Consistent w auto 12/22/16 14:40 Clumped Platelets Not Reportable 12/22/16 14:40 Plt Clumps, EDTA Not Reportable 12/22/16 14:40 Large Platelets 1+ 12/22/16 14:40 Giant Platelets Not Reportable 12/22/16 14:40 Platelet Satelliting Not Reportable 12/22/16 14:40 Plt Morphology Comment Not Reportable 12/22/16 14:40 RBC Morphology Not Reportable 12/22/16 14:40 Dimorphic RBCs Not Reportable 12/22/16 14:40 Polychromasia Not Reportable 12/22/16 14:40 Hypochromasia 1+ 12/22/16 14:40 Poikilocytosis Not Reportable 12/22/16 14:40 Anisocytosis 1+ 12/22/16 14:40 Microcytosis Not Reportable 12/22/16 14:40 Macrocytosis Not Reportable 12/22/16 14:40 Spherocytes Not Reportable 12/22/16 14:40 Pappenheimer Bodies Not Reportable 12/22/16 14:40 Sickle Cells Not Reportable 12/22/16 14:40 Target Cells Not Reportable 12/22/16 14:40 Tear Drop Cells Not Reportable 12/22/16 14:40 Ovalocytes 1+ 12/22/16 14:40 Helmet Cells Not Reportable 12/22/16 14:40 [place] Bodies Not Reportable 12/22/16 14:40 [place] Rings Not Reportable 12/22/16 14:40 Rere Cells Not Reportable 12/22/16 14:40 Bite Cells Not Reportable 12/22/16 14:40 Crenated Cell Not Reportable 12/22/16 14:40 Elliptocytes Not Reportable 12/22/16 14:40 Acanthocytes (Spur) Not Reportable 12/22/16 14:40 Rouleaux Not Reportable 12/22/16 14:40 Hemoglobin C Crystals Not Reportable 12/22/16 14:40 Schistocytes Not Reportable 12/22/16 14:40 Malaria parasites Not Reportable 12/22/16 14:40 Germain Bodies Not Reportable 12/22/16 14:40 Hem Pathologist Commnt No 12/22/16 14:40 PT 15.0 Sec. (12.2-14.9) H 12/22/16 14:40 INR 1.12 (0.87-1.13) 12/22/16 14:40 APTT 29.5 Sec. (24.2-36.6) 12/22/16 14:40 Thrombin Time 18.4 Sec. (15.1-19.6) 12/22/16 14:40 POC ABG pH 7.449 (7.35-7.45) 12/23/16 04:42 POC ABG pCO2 33.9 (35-45) L 12/23/16 04:42 POC ABG pO2 122 (80-105) H 12/23/16 04:42 POC ABG HCO3 23.5 12/23/16 04:42 POC ABG Total CO2 25 12/23/16 04:42 POC ABG O2 Sat 99 12/23/16 04:42 POC ABG Base Excess -1 12/23/16 04:42 FiO2 50 % 12/23/16 04:42 Sodium 142 mmol/L (137-145) 12/24/16 Unknown Potassium 3.5 mmol/L (3.6-5.0) L 12/24/16 Unknown Chloride 104.8 mmol/L (98-107) 12/24/16 Unknown Carbon Dioxide 23 mmol/L (22-30) 12/24/16 Unknown Anion Gap 18 mmol/L 12/24/16 Unknown BUN 13 mg/dL (7-17) 12/24/16 Unknown Creatinine 1.6 mg/dL (0.7-1.2) H D 12/24/16 Unknown Estimated GFR 39 ml/min 12/24/16 Unknown BUN/Creatinine Ratio 8.12 % 12/24/16 Unknown Glucose 113 mg/dL (65-100) H 12/24/16 Unknown POC Glucose 255 (70-105) H 12/24/16 16:10 Hemoglobin A1c 12.4 % (4-6) H 12/24/16 Unknown Ketones Quantitative Negative (Negative) 12/22/16 14:40 Lactic Acid 2.10 mmol/L (0.7-2.0) H* 12/23/16 03:09 Calcium 8.2 mg/dL (8.4-10.2) L 12/24/16 Unknown Total Bilirubin 0.70 mg/dL (0.1-1.2) 12/22/16 14:40 Direct Bilirubin < 0.2 mg/dL (0-0.2) 12/22/16 14:40 Indirect Bilirubin 0.5 mg/dL 12/22/16 14:40 AST 12 units/L (5-40) 12/22/16 14:40 ALT 15 units/L (7-56) 12/22/16 14:40 Alkaline Phosphatase 108 units/L (35-129) 12/22/16 14:40 Total Creatine Kinase 67 units/L (30-135) 12/22/16 14:40 CK-MB (CK-2) 1.3 ng/mL (0.0-4.0) 12/22/16 14:40 CK-MB (CK-2) Rel Index 1.9 (0-4) 12/22/16 14:40 Troponin T < 0.010 ng/mL (0.00-0.029) 12/22/16 14:40 NT-Pro-B Natriuret Pep 1966 pg/mL (0-900) H 12/22/16 14:40 Total Protein 7.3 g/dL (6.3-8.2) 12/22/16 14:40 Albumin 3.7 g/dL (3.9-5) L 12/22/16 14:40 Albumin/Globulin Ratio 1.0 % 12/22/16 14:40
[2016-12-25] MEDS: LOPRESSOR PO SCH ×4 (03:18→21:17)
[2016-12-25] MEDS: REVATIO PO SCH ×4 (03:19→21:15)
[2016-12-25 07:45] LABS: Hematocrit 35.8 % (30.3-42.9); Hemoglobin 11.4 gm/dl (10.1-14.3); Mean Corpuscular HGB Conc 32 % (30-34); Mean Corpuscular Volume 79 fl (79-97); Platelet Count 188 K/mm3 (140-440); Red Blood Count 4.54 M/mm3 (3.65-5.03); Red Cell Distribution Width 18.1 % (13.2-15.2); White Blood Count 7.3 K/mm3 (4.5-11.0)
[2016-12-25 07:48] LABS: Calcium 8.4 mg/dL (8.4-10.2); Chloride 105.1 mmol/L (98-107); Potassium 4.4 mmol/L (3.6-5.0)
[2016-12-25 07:49] LABS: Mean Corpuscular Hemoglobin 25 pg (28-32)
[2016-12-25] MEDS: DUONEB *Not for PRN Use IH SCH ×2 (07:49→19:44)
[2016-12-25] MEDS: CATAPRES PO SCH ×2 (08:00→21:16)
[2016-12-25] MEDS: LEVEMIR SUB-Q SCH (08:28)
[2016-12-25] MEDS: NOVOLOG SUB-Q SCH ×6 (08:28→22:55)
--- NOTE | 2016-12-25 08:54 | Progress Note ---
Assessment and Plan Acute respiratory failure Resolved Altered mental status no acute intracranial process on head CT Lactic acidosis Diabetes mellitus - uncontrolled Hypertension Persistent Afib on eliquis for anticoagulation CHF, diastolic EF 45-50% on echo 04/2016 no reversible ischemia on MPI 12/2015 Pulmonary HTN Recommendations: Continue medical therapy Monitor for low grade fever (100.4) Discontinue lasix and potassium chloride due to evidence of prerenal azotemia on labs Wheezing on exam this morning - per pulmonary No need for further cardiac intervention Subjective Date of service: 12/25/16 Principal diagnosis: AMS Interval history: Denies chest pain or SOB Mild wheezing on exam this morning Objective Vital Signs Temp Pulse Pulse Resp Resp Resp BP 12/25/16 07:39 98.3 F 65 20 123/65 12/25/16 07:27 100.4 F H 90 20 132/69 12/25/16 06:44 88 22 24 152/94 12/25/16 05:00 98.4 F 88 22 152/94 12/25/16 03:18 89 151/95 12/25/16 00:09 98.6 F 89 20 151/95 12/24/16 21:36 78 133/89 12/24/16 21:10 78 133/89 12/24/16 19:26 81 16 12/24/16 19:16 94 H 16 12/24/16 15:00 91 H 26 H 126/76 12/24/16 14:35 100 H 30 H 12/24/16 14:30 90 20 108/53 12/24/16 14:04 142 H 135/81 12/24/16 14:02 147 H 135/81 12/24/16 14:00 112 H 30 H 135/81 12/24/16 13:30 149 H 13 129/64 12/24/16 13:00 139 H 28 H 120/70 12/24/16 12:30 121 H 26 H 145/79 12/24/16 12:00 97.3 F L 143 H 17 145/79 12/24/16 11:40 124 H 145/79 12/24/16 11:35 117 H 145/79 12/24/16 11:30 122 H 28 H 131/78 12/24/16 11:00 108 H 22 131/78 12/24/16 10:30 114 H 20 133/90 12/24/16 10:00 113 H 24 24 130/86 12/24/16 09:30 107 H 27 H 154/96 12/24/16 09:00 97 H 29 H 153/72 Pulse Ox 12/25/16 07:39 99 12/25/16 07:27 12/25/16 06:44 97 12/25/16 05:00 97 12/25/16 03:18 12/25/16 00:09 100 12/24/16 21:36 12/24/16 21:10 12/24/16 19:26 12/24/16 19:16 97 12/24/16 15:00 100 12/24/16 14:35 96 12/24/16 14:30 95 12/24/16 14:04 12/24/16 14:02 12/24/16 14:00 98 12/24/16 13:30 98 12/24/16 13:00 98 12/24/16 12:30 100 12/24/16 12:00 98 12/24/16 11:40 12/24/16 11:35 12/24/16 11:30 98 12/24/16 11:00 96 12/24/16 10:30 100 12/24/16 10:00 98 12/24/16 09:30 97 12/24/16 09:00 96 - Physical Examination General: Appears Well HEENT: Positive: PERRL Neck: Positive: neck supple Cardiac: Positive: irregularly irregular Lungs: Positive: Wheezes Abdomen: Positive: Unremarkable Extremities: Absent: edema - Labs and Meds CBC 12/24/16 12/25/16 Range/Units Unknown 07:13 WBC 7.9 7.3 (4.5-11.0) K/mm3 RBC 4.70 4.54 (3.65-5.03) M/mm3 Hgb 11.5 11.4 (10.1-14.3) gm/dl Hct 36.8 35.8 (30.3-42.9) % Plt Count 182 188 (140-440) K/mm3 Comprehensive Metabolic Panel 12/24/16 12/25/16 Range/Units Unknown 07:13 Sodium 142 143 (137-145) mmol/L Potassium 3.5 L 4.4 D (3.6-5.0) mmol/L Chloride 104.8 105.1 (98-107) mmol/L Carbon Dioxide 23 23 (22-30) mmol/L BUN 13 18 H (7-17) mg/dL Creatinine 1.6 H D 2.0 H (0.7-1.2) mg/dL Glucose 113 H 206 H (65-100) mg/dL Calcium 8.2 L 8.4 (8.4-10.2) mg/dL - Imaging and Cardiology EKG: report reviewed
[2016-12-25] MEDS: ELIQUIS PO SCH ×2 (09:40→21:14)
[2016-12-25] MEDS: SYNTHROID PO SCH (09:40)
[2016-12-25] MEDS: PEPCID PO SCH ×2 (09:40→21:15)
[2016-12-25] MEDS: APRESOLINE PO SCH ×3 (09:41→21:17)
--- NOTE | 2016-12-25 11:49 | Progress Note ---
Assessment and Plan 71 y/o female with acute hypoxic respiratory failure of unknown etiology, encephalopathy and lactic acidosis. 1. continue PPV therapy at night and PRN. Patient can use home bipap machine 2. Diuresis and net negative state essential, CXR from yesterday still showing some volume overload. 3. Diabetes needs better control. Need to consider long acting insulin vs PO therapy. Will defer to IMS 4. MOnitor renal function, may need to back off of lasix some, although patient was on high doses as an outpatient 5. repeat CXR today but I do not hear wheezing on my exam 6. May need renal consult given continued increase in Cr. Subjective Date of service: 12/25/16 Principal diagnosis: AMS Interval history: Sleeping but easily awakened. Son at bedside. Per patient breathing is stable. Nursing and Cards heard wheezing on exam this am. had a breathing treatment aroud 0800 Objective Vital Signs - 12hr 12/25/16 12/25/16 12/25/16 00:09 03:18 05:00 Temperature 98.6 F 98.4 F Pulse Rate 89 89 88 Pulse Rate [ Anterior Bilateral Throughout] Pulse Rate [ Left Radial] Respiratory 20 22 Rate Respiratory Rate [Anterior Bilateral Throughout] Respiratory Rate [ Generalized] Blood Pressure 151/95 151/95 152/94 O2 Sat by Pulse 100 97 Oximetry 12/25/16 12/25/16 12/25/16 06:44 07:27 07:39 Temperature 100.4 F H 98.0 F Pulse Rate 88 90 98 H Pulse Rate [ Anterior Bilateral Throughout] Pulse Rate [ Left Radial] Respiratory 22 20 20 Rate Respiratory Rate [Anterior Bilateral Throughout] Respiratory 24 Rate [ Generalized] Blood Pressure 152/94 132/69 174/83 O2 Sat by Pulse 97 96 Oximetry 12/25/16 12/25/16 12/25/16 07:49 08:00 09:40 Temperature Pulse Rate 98 H 98 H Pulse Rate [ 100 H 114 H Anterior Bilateral Throughout] Pulse Rate [ Left Radial] Respiratory Rate Respiratory 20 20 Rate [Anterior Bilateral Throughout] Respiratory Rate [ Generalized] Blood Pressure 174/83 174/83 O2 Sat by Pulse 97 Oximetry 12/25/16 12/25/16 10:59 11:02 Temperature Pulse Rate 89 Pulse Rate [ Anterior Bilateral Throughout] Pulse Rate [ 98 H Left Radial] Respiratory 20 Rate Respiratory Rate [Anterior Bilateral Throughout] Respiratory Rate [ Generalized] Blood Pressure O2 Sat by Pulse 96 Oximetry Constitutional: no acute distress Eyes: non-icteric Neck: supple Effort: normal Ascultation: Bilateral: clear Percussion: Bilateral: not dull Cardiovascular: regular rate and rhythm Gastrointestinal: normoactive bowel sounds, other (obese) Integumentary: normal Neurologic: unable to assess CBC and BMP: 12/25/16 07:13 12/25/16 07:13 ABG, PT/INR, D-dimer: ABG POC ABG pH 7.449 (7.35-7.45) 12/23/16 04:42 POC ABG pCO2 33.9 (35-45) L 12/23/16 04:42 POC ABG pO2 122 (80-105) H 12/23/16 04:42 POC ABG HCO3 23.5 12/23/16 04:42 POC ABG Total CO2 25 12/23/16 04:42 POC ABG O2 Sat 99 12/23/16 04:42 PT/INR, D-dimer PT 15.0 Sec. (12.2-14.9) H 12/22/16 14:40 INR 1.12 (0.87-1.13) 12/22/16 14:40 Abnormal lab findings: Abnormal Labs 12/22/16 12/22/16 12/22/16 17:34 19:45 21:35 MCV MCH RDW POC ABG pCO2 POC ABG pO2 Sodium 132 L Potassium Chloride 91.3 L Carbon Dioxide BUN Creatinine Glucose 661 H* POC Glucose 497 H Hemoglobin A1c Lactic Acid 2.10 H* Calcium 12/22/16 12/23/16 12/23/16 22:11 02:56 03:09 MCV 78 L MCH 25 L RDW 17.5 H POC ABG pCO2 POC ABG pO2 Sodium Potassium Chloride Carbon Dioxide BUN Creatinine Glucose POC Glucose 458 H 377 H Hemoglobin A1c Lactic Acid Calcium 12/23/16 12/23/16 12/23/16 03:09 03:09 04:42 MCV MCH RDW POC ABG pCO2 33.9 L POC ABG pO2 122 H Sodium Potassium Chloride Carbon Dioxide 20 L BUN Creatinine Glucose 338 H POC Glucose Hemoglobin A1c Lactic Acid 2.10 H* Calcium 8.1 L 12/23/16 12/23/16 12/23/16 06:20 10:21 14:04 MCV MCH RDW POC ABG pCO2 POC ABG pO2 Sodium Potassium Chloride Carbon Dioxide BUN Creatinine Glucose POC Glucose 322 H 248 H 215 H Hemoglobin A1c Lactic Acid Calcium 12/23/16 12/23/16 12/24/16 18:05 21:26 01:45 MCV MCH RDW POC ABG pCO2 POC ABG pO2 Sodium Potassium Chloride Carbon Dioxide BUN Creatinine Glucose POC Glucose 146 H 202 H 277 H Hemoglobin A1c Lactic Acid Calcium 12/24/16 12/24/16 12/24/16 05:38 11:48 16:10 MCV MCH RDW POC ABG pCO2 POC ABG pO2 Sodium Potassium Chloride Carbon Dioxide BUN Creatinine Glucose POC Glucose 111 H 165 H 255 H Hemoglobin A1c Lactic Acid Calcium 12/24/16 12/24/16 12/24/16 21:22 Unknown Unknown MCV 78 L MCH 25 L RDW 18.3 H POC ABG pCO2 POC ABG pO2 Sodium Potassium 3.5 L Chloride Carbon Dioxide BUN Creatinine 1.6 H D Glucose 113 H POC Glucose 268 H Hemoglobin A1c Lactic Acid Calcium 8.2 L 12/24/16 12/25/16 12/25/16 Unknown 07:13 07:13 MCV MCH 25 L RDW 18.1 H POC ABG pCO2 POC ABG pO2 Sodium Potassium Chloride Carbon Dioxide BUN 18 H Creatinine 2.0 H Glucose 206 H POC Glucose Hemoglobin A1c 12.4 H Lactic Acid Calcium
--- NOTE | 2016-12-25 13:37 | XRay Report ---
AP CHEST: HISTORY: Dyspnea Moderate cardiomegaly and mild pulmonary venous congestion are stable since 12/24/16. The lungs are main clear. No evidence for pneumonia, CHF or pneumothorax. IMPRESSION: Cardiomegaly and pulmonary venous congestion.
[2016-12-25] MEDS ORDERED: MYLICON PO PRN (18:51)
--- NOTE | 2016-12-25 18:51 | Progress Note ---
Assessment and Plan Assessment and plan: 71 years old obese -Faroese female found down, intubated in ER for airway protection 1. Acute hypoxic respiratory failure Likely secondary to CHF exacerbation Extubated 12/24 NIPPV QHS and prn 2. Acute on chronic systolic heart failure Need to hold IV Lasix today due to worsening renal function Continue to monitor I/O 3. Atrial fibrillation Rate controlled On Eliquis for anticoagulation 4. Acute kidney injury Renal function worsening, Cr up to 2 Hold diuretic recheck in am 5. Diabetes Long-acting insulin along with SSI BS still elevated, so insulin dose increased today Continue Accu-checks 6. Lactic acidosis No symptoms/signs of infection 7. Hypokalemia Replaced 8. DVT prophylaxis Anticoagulated with Eliquis 9. Obesity Counseled regarding importance of losing weight 10. Full code History Interval history: on BiPAP, no complaints Hospitalist Physical - Constitutional Vitals: Temp Pulse Resp BP Pulse Ox 98.0 F 109 H 20 154/88 92 12/25/16 16:00 12/25/16 16:00 12/25/16 16:00 12/25/16 16:00 12/25/16 16:00 General appearance: Present: no acute distress, obese - EENT Eyes: Present: PERRL, EOM intact. Absent: scleral icterus, conjunctival injection - Neck Neck: Present: supple, normal ROM. Absent: masses or JVD - Respiratory Respiratory effort: other (on Bipap) Respiratory: bilateral: diminished, rhonchi, negative: wheezing - Cardiovascular Rhythm: irregularly irregular Heart Sounds: Present: S1 & S2. Absent: systolic murmur - Extremities Extremities: no ischemia Extremity abnormal: edema - Abdominal General gastrointestinal: soft, non-tender, non-distended, normal bowel sounds - Psychiatric Psychiatric: cooperative - Neurologic Neurologic: no focal deficits Results - Labs CBC & Chem 7: 12/25/16 07:13 12/25/16 07:13 Labs: Laboratory Last Values WBC 7.3 K/mm3 (4.5-11.0) 12/25/16 07:13 RBC 4.54 M/mm3 (3.65-5.03) 12/25/16 07:13 Hgb 11.4 gm/dl (10.1-14.3) 12/25/16 07:13 Hct 35.8 % (30.3-42.9) 12/25/16 07:13 MCV 79 fl (79-97) 12/25/16 07:13 MCH 25 pg (28-32) L 12/25/16 07:13 MCHC 32 % (30-34) 12/25/16 07:13 RDW 18.1 % (13.2-15.2) H 12/25/16 07:13 Plt Count 188 K/mm3 (140-440) 12/25/16 07:13 Lymph % (Auto) Chinese Medicine Practitioner 12/22/16 14:40 Lymph # Chinese Medicine Practitioner 12/22/16 14:40 Add Manual Diff Complete 12/22/16 14:40 Total Counted 100 12/22/16 14:40 Seg Neutrophils % Chinese Medicine Practitioner 12/22/16 14:40 Seg Neuts % (Manual) 39.0 % (40.0-70.0) L 12/22/16 14:40 Band Neutrophils % 0 % 12/22/16 14:40 Lymphocytes % (Manual) 49.0 % (13.4-35.0) H 12/22/16 14:40 Reactive Lymphs % (Man) 0 % 12/22/16 14:40 Monocytes % (Manual) 9.0 % (0.0-7.3) H 12/22/16 14:40 Eosinophils % (Manual) 2.0 % (0.0-4.3) 12/22/16 14:40 Basophils % (Manual) 0 % (0.0-1.8) 12/22/16 14:40 Metamyelocytes % 1.0 % 12/22/16 14:40 Myelocytes % 0 % 12/22/16 14:40 Promyelocytes % 0 % 12/22/16 14:40 Blast Cells % 0 % 12/22/16 14:40 Nucleated RBC % Not Reportable 12/22/16 14:40 Seg Neutrophils # Man 3.5 K/mm3 (1.8-7.7) 12/22/16 14:40 Band Neutrophils # 0.0 K/mm3 12/22/16 14:40 Lymphocytes # (Manual) 4.5 K/mm3 (1.2-5.4) 12/22/16 14:40 Abs React Lymphs (Man) 0.0 K/mm3 12/22/16 14:40 Monocytes # (Manual) 0.8 K/mm3 (0.0-0.8) 12/22/16 14:40 Eosinophils # (Manual) 0.2 K/mm3 (0.0-0.4) 12/22/16 14:40 Basophils # (Manual) 0.0 K/mm3 (0.0-0.1) 12/22/16 14:40 Metamyelocytes # 0.1 K/mm3 12/22/16 14:40 Myelocytes # 0.0 K/mm3 12/22/16 14:40 Promyelocytes # 0.0 K/mm3 12/22/16 14:40 Blast Cells # 0.0 K/mm3 12/22/16 14:40 WBC Morphology Not Reportable 12/22/16 14:40 Hypersegmented Neuts Not Reportable 12/22/16 14:40 Hyposegmented Neuts Not Reportable 12/22/16 14:40 Hypogranular Neuts Not Reportable 12/22/16 14:40 Smudge Cells Not Reportable 12/22/16 14:40 Toxic Granulation Not Reportable 12/22/16 14:40 Toxic Vacuolation Not Reportable 12/22/16 14:40 Dohle Bodies Not Reportable 12/22/16 14:40 Pelger-Huet Anomaly Not Reportable 12/22/16 14:40 Melba Rods Not Reportable 12/22/16 14:40 Platelet Estimate Consistent w auto 12/22/16 14:40 Clumped Platelets Not Reportable 12/22/16 14:40 Plt Clumps, EDTA Not Reportable 12/22/16 14:40 Large Platelets 1+ 12/22/16 14:40 Giant Platelets Not Reportable 12/22/16 14:40 Platelet Satelliting Not Reportable 12/22/16 14:40 Plt Morphology Comment Not Reportable 12/22/16 14:40 RBC Morphology Not Reportable 12/22/16 14:40 Dimorphic RBCs Not Reportable 12/22/16 14:40 Polychromasia Not Reportable 12/22/16 14:40 Hypochromasia 1+ 12/22/16 14:40 Poikilocytosis Not Reportable 12/22/16 14:40 Anisocytosis 1+ 12/22/16 14:40 Microcytosis Not Reportable 12/22/16 14:40 Macrocytosis Not Reportable 12/22/16 14:40 Spherocytes Not Reportable 12/22/16 14:40 Pappenheimer Bodies Not Reportable 12/22/16 14:40 Sickle Cells Not Reportable 12/22/16 14:40 Target Cells Not Reportable 12/22/16 14:40 Tear Drop Cells Not Reportable 12/22/16 14:40 Ovalocytes 1+ 12/22/16 14:40 Helmet Cells Not Reportable 12/22/16 14:40 [place] Bodies Not Reportable 12/22/16 14:40 [place] Rings Not Reportable 12/22/16 14:40 [place] Cells Not Reportable 12/22/16 14:40 Bite Cells Not Reportable 12/22/16 14:40 Crenated Cell Not Reportable 12/22/16 14:40 Elliptocytes Not Reportable 12/22/16 14:40 Acanthocytes (Spur) Not Reportable 12/22/16 14:40 Rouleaux Not Reportable 12/22/16 14:40 Hemoglobin C Crystals Not Reportable 12/22/16 14:40 Schistocytes Not Reportable 12/22/16 14:40 Malaria parasites Not Reportable 12/22/16 14:40 Germain Bodies Not Reportable 12/22/16 14:40 Hem Pathologist Commnt No 12/22/16 14:40 PT 15.0 Sec. (12.2-14.9) H 12/22/16 14:40 INR 1.12 (0.87-1.13) 12/22/16 14:40 APTT 29.5 Sec. (24.2-36.6) 12/22/16 14:40 Thrombin Time 18.4 Sec. (15.1-19.6) 12/22/16 14:40 POC ABG pH 7.449 (7.35-7.45) 12/23/16 04:42 POC ABG pCO2 33.9 (35-45) L 12/23/16 04:42 POC ABG pO2 122 (80-105) H 12/23/16 04:42 POC ABG HCO3 23.5 12/23/16 04:42 POC ABG Total CO2 25 12/23/16 04:42 POC ABG O2 Sat 99 12/23/16 04:42 POC ABG Base Excess -1 12/23/16 04:42 FiO2 50 % 12/23/16 04:42 Sodium 143 mmol/L (137-145) 12/25/16 07:13 Potassium 4.4 mmol/L (3.6-5.0) D 12/25/16 07:13 Chloride 105.1 mmol/L (98-107) 12/25/16 07:13 Carbon Dioxide 23 mmol/L (22-30) 12/25/16 07:13 Anion Gap 19 mmol/L 12/25/16 07:13 BUN 18 mg/dL (7-17) H 12/25/16 07:13 Creatinine 2.0 mg/dL (0.7-1.2) H 12/25/16 07:13 Estimated GFR 30 ml/min 12/25/16 07:13 BUN/Creatinine Ratio 9.00 % 12/25/16 07:13 Glucose 206 mg/dL (65-100) H 12/25/16 07:13 POC Glucose 268 (70-105) H 12/24/16 21:22 Hemoglobin A1c 12.4 % (4-6) H 12/24/16 Unknown Ketones Quantitative Negative (Negative) 12/22/16 14:40 Lactic Acid 2.10 mmol/L (0.7-2.0) H* 12/23/16 03:09 Calcium 8.4 mg/dL (8.4-10.2) 12/25/16 07:13 Total Bilirubin 0.70 mg/dL (0.1-1.2) 12/22/16 14:40 Direct Bilirubin < 0.2 mg/dL (0-0.2) 12/22/16 14:40 Indirect Bilirubin 0.5 mg/dL 12/22/16 14:40 AST 12 units/L (5-40) 12/22/16 14:40 ALT 15 units/L (7-56) 12/22/16 14:40 Alkaline Phosphatase 108 units/L (35-129) 12/22/16 14:40 Total Creatine Kinase 67 units/L (30-135) 12/22/16 14:40 CK-MB (CK-2) 1.3 ng/mL (0.0-4.0) 12/22/16 14:40 CK-MB (CK-2) Rel Index 1.9 (0-4) 12/22/16 14:40 Troponin T < 0.010 ng/mL (0.00-0.029) 12/22/16 14:40 NT-Pro-B Natriuret Pep 1966 pg/mL (0-900) H 12/22/16 14:40 Total Protein 7.3 g/dL (6.3-8.2) 12/22/16 14:40 Albumin 3.7 g/dL (3.9-5) L 12/22/16 14:40 Albumin/Globulin Ratio 1.0 % 12/22/16 14:40
[2016-12-26] MEDS: LOPRESSOR PO SCH ×4 (08:00→21:05)
[2016-12-26 08:41] LABS: BUN/Creatinine Ratio 10.95; Calcium 8.7 mg/dL (8.4-10.2); Chloride 102.2 mmol/L (98-107); Potassium 4.3 mmol/L (3.6-5.0)
[2016-12-26] MEDS: DUONEB *Not for PRN Use IH SCH ×2 (09:05→21:31)
[2016-12-26] MEDS: celeXA PO SCH (10:04)
[2016-12-26] MEDS: BABY ASPIRIN PO SCH (10:04)
[2016-12-26] MEDS: APRESOLINE PO SCH ×3 (10:05→21:00)
[2016-12-26] MEDS: PEPCID PO SCH ×2 (10:05→22:58)
[2016-12-26] MEDS: ELIQUIS PO SCH ×2 (10:05→22:59)
[2016-12-26] MEDS: SYNTHROID PO SCH (10:05)
[2016-12-26] MEDS: CATAPRES PO SCH ×2 (10:05→22:58)
[2016-12-26] MEDS: LEVEMIR SUB-Q SCH (10:06)
[2016-12-26] MEDS: REVATIO PO SCH ×3 (10:06→21:10)
[2016-12-26] MEDS: NOVOLOG SUB-Q SCH ×4 (10:11→22:45)
--- NOTE | 2016-12-26 11:06 | Progress Note ---
Assessment and Plan Acute respiratory failure Altered mental status, resolved no acute intracranial process on head CT Lactic acidosis Acute renal failure Diabetes mellitus Sleep apnea Hypertension Persistent Afib on eliquis at home for anticoagulation CHF, diastolic EF 45-50% on echo 04/2016 no reversible ischemia on MPI 12/2015 Pulmonary HTN Recommendations: Continue rate control and oral anticoagulation for persistent afib. Subjective Date of service: 12/26/16 Principal diagnosis: AMS Interval history: Patient has no complaints. No distress noted. Objective Vital Signs Temp Pulse Pulse Resp Resp Resp BP 12/26/16 10:05 78 159/86 12/26/16 10:00 12/26/16 09:36 98.1 F 78 18 159/80 12/26/16 09:17 105 H 22 12/26/16 09:05 101 H 22 12/26/16 08:00 78 159/86 12/26/16 04:00 98.4 F 93 H 18 139/87 12/26/16 00:00 98.2 F 84 20 141/66 12/25/16 22:00 92 H 24 12/25/16 21:17 118 H 154/88 12/25/16 21:16 118 H 154/88 12/25/16 20:00 98.6 F 132 H 20 154/83 12/25/16 19:54 118 H 20 12/25/16 19:44 108 H 20 12/25/16 16:00 98.0 F 109 H 20 154/88 12/25/16 14:57 72 144/86 12/25/16 12:00 97.5 F L 72 20 144/86 Pulse Ox 12/26/16 10:05 12/26/16 10:00 98 12/26/16 09:36 98 12/26/16 09:17 12/26/16 09:05 12/26/16 08:00 12/26/16 04:00 100 12/26/16 00:00 97 12/25/16 22:00 98 12/25/16 21:17 12/25/16 21:16 12/25/16 20:00 94 12/25/16 19:54 12/25/16 19:44 97 12/25/16 16:00 92 12/25/16 14:57 12/25/16 12:00 - Physical Examination General: No Apparent Distress HEENT: Positive: PERRL Cardiac: Positive: irregularly irregular Lungs: Positive: Rales - Labs and Meds Comprehensive Metabolic Panel 12/26/16 Range/Units 07:04 Sodium 139 (137-145) mmol/L Potassium 4.3 (3.6-5.0) mmol/L Chloride 102.2 (98-107) mmol/L Carbon Dioxide 23 (22-30) mmol/L BUN 23 H (7-17) mg/dL Creatinine 2.1 H (0.7-1.2) mg/dL Glucose 270 H (65-100) mg/dL Calcium 8.7 (8.4-10.2) mg/dL - Imaging and Cardiology EKG: report reviewed
--- NOTE | 2016-12-26 13:17 | Progress Note ---
Assessment and Plan ARF.Resolved CHF Afib AMS improved CLAUDIO.Improving Rec OOB as tolerated Subjective Date of service: 12/26/16 Principal diagnosis: AMS Interval history: Some cough noted.Otherwise feels fine Objective Vital Signs - 12hr 12/26/16 12/26/16 12/26/16 04:00 08:00 09:05 Temperature 98.4 F Pulse Rate 93 H 78 Pulse Rate [ 101 H Anterior Bilateral Throughout] Respiratory 18 Rate Respiratory 22 Rate [Anterior Bilateral Throughout] Blood Pressure 139/87 159/86 O2 Sat by Pulse 100 Oximetry 12/26/16 12/26/16 12/26/16 09:17 09:36 10:00 Temperature 98.1 F Pulse Rate 78 71 Pulse Rate [ 105 H Anterior Bilateral Throughout] Respiratory 18 Rate Respiratory 22 Rate [Anterior Bilateral Throughout] Blood Pressure 159/80 O2 Sat by Pulse 98 98 Oximetry 12/26/16 10:05 Temperature Pulse Rate 78 Pulse Rate [ Anterior Bilateral Throughout] Respiratory Rate Respiratory Rate [Anterior Bilateral Throughout] Blood Pressure 159/86 O2 Sat by Pulse Oximetry Constitutional: no acute distress Eyes: non-icteric Neck: supple Effort: normal Ascultation: Bilateral: clear, diminished breath sounds (R >> L) Percussion: Bilateral: not dull Cardiovascular: regular rate and rhythm Gastrointestinal: normoactive bowel sounds, other (obese) Integumentary: normal Neurologic: normal mental status, non-focal exam, pupils equal and round, CN II- XII normal CBC and BMP: 12/25/16 07:13 12/26/16 07:04 ABG, PT/INR, D-dimer: ABG POC ABG pH 7.449 (7.35-7.45) 12/23/16 04:42 POC ABG pCO2 33.9 (35-45) L 12/23/16 04:42 POC ABG pO2 122 (80-105) H 12/23/16 04:42 POC ABG HCO3 23.5 12/23/16 04:42 POC ABG Total CO2 25 12/23/16 04:42 POC ABG O2 Sat 99 12/23/16 04:42 PT/INR, D-dimer PT 15.0 Sec. (12.2-14.9) H 12/22/16 14:40 INR 1.12 (0.87-1.13) 12/22/16 14:40 Abnormal lab findings: Abnormal Labs 12/22/16 12/22/16 12/22/16 17:34 19:45 21:35 MCV MCH RDW POC ABG pCO2 POC ABG pO2 Sodium 132 L Potassium Chloride 91.3 L Carbon Dioxide BUN Creatinine Glucose 661 H* POC Glucose 497 H Hemoglobin A1c Lactic Acid 2.10 H* Calcium 12/22/16 12/23/16 12/23/16 22:11 02:56 03:09 MCV 78 L MCH 25 L RDW 17.5 H POC ABG pCO2 POC ABG pO2 Sodium Potassium Chloride Carbon Dioxide BUN Creatinine Glucose POC Glucose 458 H 377 H Hemoglobin A1c Lactic Acid Calcium 12/23/16 12/23/16 12/23/16 03:09 03:09 04:42 MCV MCH RDW POC ABG pCO2 33.9 L POC ABG pO2 122 H Sodium Potassium Chloride Carbon Dioxide 20 L BUN Creatinine Glucose 338 H POC Glucose Hemoglobin A1c Lactic Acid 2.10 H* Calcium 8.1 L 12/23/16 12/23/16 12/23/16 06:20 10:21 14:04 MCV MCH RDW POC ABG pCO2 POC ABG pO2 Sodium Potassium Chloride Carbon Dioxide BUN Creatinine Glucose POC Glucose 322 H 248 H 215 H Hemoglobin A1c Lactic Acid Calcium 12/23/16 12/23/16 12/24/16 18:05 21:26 01:45 MCV MCH RDW POC ABG pCO2 POC ABG pO2 Sodium Potassium Chloride Carbon Dioxide BUN Creatinine Glucose POC Glucose 146 H 202 H 277 H Hemoglobin A1c Lactic Acid Calcium 12/24/16 12/24/16 12/24/16 05:38 11:48 16:10 MCV MCH RDW POC ABG pCO2 POC ABG pO2 Sodium Potassium Chloride Carbon Dioxide BUN Creatinine Glucose POC Glucose 111 H 165 H 255 H Hemoglobin A1c Lactic Acid Calcium 12/24/16 12/24/16 12/24/16 21:22 Unknown Unknown MCV 78 L MCH 25 L RDW 18.3 H POC ABG pCO2 POC ABG pO2 Sodium Potassium 3.5 L Chloride Carbon Dioxide BUN Creatinine 1.6 H D Glucose 113 H POC Glucose 268 H Hemoglobin A1c Lactic Acid Calcium 8.2 L 12/24/16 12/25/16 12/25/16 Unknown 07:13 07:13 MCV MCH 25 L RDW 18.1 H POC ABG pCO2 POC ABG pO2 Sodium Potassium Chloride Carbon Dioxide BUN 18 H Creatinine 2.0 H Glucose 206 H POC Glucose Hemoglobin A1c 12.4 H Lactic Acid Calcium 12/25/16 12/25/16 12/25/16 08:12 13:20 17:01 MCV MCH RDW POC ABG pCO2 POC ABG pO2 Sodium Potassium Chloride Carbon Dioxide BUN Creatinine Glucose POC Glucose 218 H 332 H 320 H Hemoglobin A1c Lactic Acid Calcium 12/25/16 12/26/16 21:45 07:04 MCV MCH RDW POC ABG pCO2 POC ABG pO2 Sodium Potassium Chloride Carbon Dioxide BUN 23 H Creatinine 2.1 H Glucose 270 H POC Glucose 267 H Hemoglobin A1c Lactic Acid Calcium
--- NOTE | 2016-12-26 16:37 | Consultation ---
History of Present Illness - Reason for Consult Consult date: 12/26/16 acute renal failure Requesting physician: BRENDAN FITZPATRICK - History of Present Illness This is a 71yo F with past medical history of hypertension, type 2 diabetes mellitus, systolic heart failure EF 45-50%, obstructive sleep apnea on CPAP, A. fib on Eliquis, h/o CVA with chronic right cerebellar infarct, GERD and hypothyroidism who initially presented to [facility] ER via EMSafter being found unconscious on the bathroom floor with cpap mask on. Per ED physician documentation, Upon arrival to the emergency department she was agitated inability to communicate pulse ox was in the 70s, ABG showed CO2 retention with pCO2 >50, systolic blood pressure was 225 and serum blood sugar was >600. Patient was subsequently intubated for airway protection. CTH w/o contrast reported as no definite acute intracranial abnormality, CXR showed worsening of pulmonary vascular congestion with stable cardiomegaly, subtle left basilar opacity. Patient was initiated on IV diuresis with lasix. Renal function worsened with IV diuretic therapy with BUN/Cr rising up to 23/2.1mg/dl from 12/ 0.8mg/dl on 12/23/16. Renal consult requested for management of CLAUDIO. Pt seen and examined at bedside, is currently on CPAP, awake, alert, intermittent confusion during history taking noted, pt remains in mild to moderate respiratory distress. denies fever, chills, nausea, vomiting, diarrhea, abdominal pain, dysuria, dizziness, blurry vision, rash. Denies previous history of renal disease. Past History Past Medical History: atrial fib, CAD, diabetes, hypertension, other (OSB, CHF, old CVA) Past Surgical History: appendectomy, hysterectomy Social history: no significant social history Family history: hypertension Medications and Allergies Allergies Allergy/AdvReac Type Severity Reaction Status Date / Time codeine Allergy Vomiting Verified 12/11/15 21:21 Home Medications Medication Instructions Recorded Confirmed Last Taken Type Albuterol Sulfate [Ventolin HFA] 2 puff IH Q4H PRN 12/11/15 12/23/16 1 Week Ago History 8 Apixaban [Eliquis] 5 mg PO BID 12/11/15 12/23/16 1 Day Ago History 5 Aspirin [Aspirin BABY CHEW TAB] 162 mg PO QDAY 12/11/15 12/23/16 1 Day Ago History 81 AtorvaSTATin [Lipitor] 10 mg PO DAILY 12/11/15 12/23/16 1 Day Ago History 10 Citalopram [Celexa] 20 mg PO QDAY 12/11/15 12/23/16 1 Day Ago History 20 Docusate Sodium [Dok] 100 mg PO DAILY PRN 12/11/15 12/23/16 1 Day Ago History 100 Levothyroxine [Synthroid] 100 mcg PO QAM 12/11/15 12/23/16 1 Day Ago History 100 Potassium Chloride [K-Dur] 20 meq PO BID 12/11/15 12/23/16 1 Day Ago History 20 Sildenafil [Revatio] 20 mg PO TID 12/11/15 12/23/16 1 Day Ago History 20 cloNIDine [Catapres] 0.1 mg PO BID 12/11/15 12/23/16 1 Day Ago History 0.1 hydrALAZINE [Apresoline TAB] 100 mg PO TID 12/11/15 12/23/16 1 Day Ago History 100 traMADol [Ultram 50 MG tab] 50 mg PO Q12HR PRN 12/11/15 12/23/16 1 Day Ago History 50 Insulin NPH Hum/Reg Insulin Hm 40 units SQ QPM 12/12/15 12/23/16 1 Day Ago History [HumuLIN 70-30 Vial] 40 Insulin NPH Hum/Reg Insulin Hm 60 unit SQ QAM 12/12/15 12/23/16 1 Day Ago History [HumuLIN 70-30 Vial] 60 Carvedilol [Coreg] 37.5 mg PO BID 12/23/16 12/23/16 Unknown History Fenofibrate [Tricor] 145 mg PO QDAY 12/23/16 12/23/16 Unknown History Furosemide [Lasix TAB] 80 mg PO BID 12/23/16 12/23/16 Unknown History Metoclopramide HCl [Reglan TAB] 5 mg PO QID 12/23/16 12/23/16 Unknown History Active Meds: Active Medications Acetaminophen (Tylenol) 650 mg AK Q4H PRN PRN Reason: Non Cardiac Pain or Temp>100.5 Acetaminophen (Tylenol) 650 mg PO Q4H PRN PRN Reason: Pain, Mild (1-3), headache Albuterol/Ipratropium (Duoneb *Not For Prn Use*) 1 ampul IH BIDRT [facility] Last Admin: 12/26/16 09:05 Dose: 1 ampul Lipase/Protease/Amylase (Laure Figueroa 10,500 Unit) 1 each FEEDTUBE PRN PRN PRN Reason: For Clogged Feeding Tube Apixaban (Eliquis) 5 mg PO BID [facility] PRN Reason: Protocol Last Admin: 12/26/16 10:05 Dose: 5 mg Aspirin (Baby Aspirin) 81 mg PO QDAY [facility] Last Admin: 12/26/16 10:04 Dose: 81 mg Atorvastatin Calcium (Lipitor) 10 mg PO QHS [facility] Last Admin: 12/25/16 21:15 Dose: 10 mg Bisacodyl (Dulcolax) 10 mg AK QDAY PRN PRN Reason: Constipation Citalopram Hydrobromide (Celexa) 20 mg PO QDAY [facility] Last Admin: 12/26/16 10:04 Dose: 20 mg Clonidine HCl (Catapres) 0.1 mg PO BID [facility] Last Admin: 12/26/16 10:05 Dose: 0.1 mg Dextrose (D50w (25gm)) 50 ml IV PRN PRN PRN Reason: Hypoglycemia Famotidine (Pepcid) 20 mg PO BID [facility] Last Admin: 12/26/16 10:05 Dose: 20 mg Furosemide (Lasix) 40 mg IV QDAY [facility] Hydralazine HCl (Apresoline) 100 mg PO TID [facility] Last Admin: 12/26/16 13:56 Dose: 100 mg Sodium Chloride (Nacl 0.9% 1000 Ml) 2,000 mls @ 150 mls/hr IV DIRECT [facility] Last Admin: 12/22/16 17:00 Dose: 150 mls/hr Insulin Aspart (Novolog) 0 units SUB-Q ACHS [facility] PRN Reason: Protocol Last Admin: 12/26/16 13:56 Dose: 8 units Insulin Detemir (Levemir) 10 units SUB-Q QAMDIAB [facility] Last Admin: 12/26/16 10:06 Dose: 10 units Labetalol HCl (Normodyne) 10 mg IV Q4H PRN PRN Reason: Blood Pressure Levothyroxine Sodium (Synthroid) 100 mcg PO DAILY@0600 [facility] Lorazepam (Ativan) 1 mg IV Q4H PRN PRN Reason: Agitation Last Admin: 12/24/16 21:10 Dose: 1 mg Metoprolol Tartrate (Lopressor) 25 mg PO Q6H [facility] Last Admin: 12/26/16 13:58 Dose: 25 mg Sildenafil Citrate (Revatio) 20 mg PO TID [facility] Last Admin: 12/26/16 13:56 Dose: 20 mg Simethicone (Mylicon) 80 mg PO Q4H PRN PRN Reason: Gas pain Last Admin: 12/25/16 21:14 Dose: 80 mg Simple Syrup (Simple Syrup) 15 ml FEEDTUBE PRN PRN PRN Reason: Hypoglycemia Simple Syrup (Simple Syrup) 30 ml FEEDTUBE PRN PRN PRN Reason: Hypoglycemia Sodium Bicarbonate (Sodium Bicarbonate) 325 mg FEEDTUBE PRN PRN PRN Reason: For Clogged Feeding Tube Tramadol HCl (Ultram) 50 mg PO Q12H PRN PRN Reason: Pain, Moderate (4-6) Review of Systems All systems: negative Constitutional: fatigue, weakness Cardiovascular: palpitations, rapid/irregular heart beat, shortness of breath, dyspnea on exertion, paroxysmal nocturnal dyspnea Respiratory: shortness of breath, dyspnea on exertion, snoring, sleep apnea Exam - Vital Signs Vital signs: Vital Signs Pulse Ox 76 L 12/22/16 14:38 - General Appearance General appearance: well-nourished, appears stated age, obese, moderate distress EENT: ATNC, PERRL, mucous membranes moist Neck: Present: neck supple Respiratory: Decreased Breath Sounds Heart: irregularly irregular Gastrointestinal: Present: normoactive bowel sounds, obese. Absent: tenderness , masses, guarding, organomegaly Integumentary: no rash, other (+ edema b/l LE ) Neurologic: no focal deficit, alert and oriented x3, strength 5/5, CN 3-12 intact Psychiatric: mood/affect appropriate, cooperative Results - Lab Results 12/25/16 07:13 12/26/16 07:04 Most recent lab results Calcium 8.7 mg/dL (8.4-10.2) 12/26/16 07:04 Laboratory Tests 12/22/16 12/22/16 12/22/16 14:40 14:40 14:40 POC ABG pH POC ABG pCO2 POC ABG pO2 POC ABG HCO3 POC ABG Total CO2 POC ABG O2 Sat POC ABG Base Excess FiO2 Lactic Acid Calcium 8.8 Direct Bilirubin < 0.2 Indirect Bilirubin 0.5 ALT 15 Total Creatine Kinase 67 CK-MB (CK-2) 1.3 CK-MB (CK-2) Rel Index 1.9 NT-Pro-B Natriuret Pep 1966 H Total Protein 7.3 Albumin/Globulin Ratio 1.0 12/22/16 12/22/16 12/22/16 14:49 17:34 21:35 POC ABG pH POC ABG pCO2 POC ABG pO2 POC ABG HCO3 POC ABG Total CO2 POC ABG O2 Sat POC ABG Base Excess FiO2 Lactic Acid 6.50 H* 2.10 H* Calcium 8.5 Direct Bilirubin Indirect Bilirubin ALT Total Creatine Kinase CK-MB (CK-2) CK-MB (CK-2) Rel Index NT-Pro-B Natriuret Pep Total Protein Albumin/Globulin Ratio 12/23/16 12/23/16 12/23/16 03:09 03:09 04:42 POC ABG pH 7.449 POC ABG pCO2 33.9 L POC ABG pO2 122 H POC ABG HCO3 23.5 POC ABG Total CO2 25 POC ABG O2 Sat 99 POC ABG Base Excess -1 FiO2 50 Lactic Acid 2.10 H* Calcium 8.1 L Direct Bilirubin Indirect Bilirubin ALT Total Creatine Kinase CK-MB (CK-2) CK-MB (CK-2) Rel Index NT-Pro-B Natriuret Pep Total Protein Albumin/Globulin Ratio Assessment and Plan - Patient Problems (1) Acute kidney injury Current Visit: Yes Status: Acute Plan to address problem: acute kidney injury is due to pre-renal azotemia in the setting of IV diuresis and acute cardiorenal syndrome. patient still with moderate respiratory distress , CXR from 12/25 still showing cardiomegaly with pulmonary vascular congestion. Will resume lasix 40mg IV qd and target, net negative fluid balance. check UA, urine lytes/protein/cr ratio. supportive care for CLAUDIO avoid nephrotoxins, NSAIDs IV contrast. Will monitor lytes/renal parameters and make further recommendations (2) Atrial fibrillation Current Visit: Yes Status: Acute Qualifiers: Atrial fibrillation type: chronic Qualified Code(s): I48.2 - Chronic atrial fibrillation Plan to address problem: rate control as per cardiology (3) Congestive heart failure Current Visit: Yes Status: Acute Qualifiers: Congestive heart failure type: combined Congestive heart failure chronicity : acute on chronic Qualified Code(s): I50.43 - Acute on chronic combined systolic (congestive) and diastolic (congestive) heart failure Plan to address problem: IV lasix 40mg po qd for volume control. rate control as per cardio, on metoprolol. hold KENNETH-I/ARB until eGFR is in steady state. strict I/Os, fluid restriction to 1.5L /day (4) Uncontrolled hypertension Current Visit: Yes Status: Acute Plan to address problem: will titrate BP meds, if BP does not improve on IV lasix and further volume control (5) Obstructive sleep apnea Current Visit: Yes Status: Acute Plan to address problem: cont CPAP, bronchodilator therapy as per pulmonary consult (6) Altered mental status Current Visit: Yes Status: Acute Qualifiers: Altered mental status type: delirium Coma depth: C Coma timing: C Qualified Code(s): R41.0 - Disorientation, unspecified Plan to address problem: improved mental status
--- NOTE | 2016-12-26 17:39 | Progress Note ---
Assessment and Plan Assessment and plan: patient is 71 years old obese -[place] female found down, intubated in ER for airway protection Acute hypoxic respiratory failure Likely secondary to CHF exacerbation Extubated 12/24 On oxygen by nasal cannula O2 sat 97% on 3 L/m nasal cannula NIPPV QHS and prn Acute on chronic systolic heart failure Lasix on hold due to worsening renal function. Continue to monitor I/O cardiology following. Atrial fibrillation Rate controlled On Eliquis for anticoagulation generalized weakness. Obtain Physical therapy consult Acute kidney injury Renal function worsening, Creatinine 2.1 today. Lasix on hold. Consult nephrology water filtration technician Diabetes mellitus type 2 Long-acting insulin along with SSI BS still elevated, so insulin dose increased today Continue Accu-checks Lactic acidosis No symptoms/signs of infection Hypokalemia, resolved. DVT prophylaxis. On Eliquis Obesity Counseled regarding importance of losing weight Full code History Interval history: Less shortness of breath, No chest pain, Generalized weakness, difficulty ambulation Hospitalist Physical - Physical exam Narrative exam: Gen appearance: Not in acute distress HEENT: normocephalic, atraumatic Neck: supple, Lungs: Clear to auscultation bilaterally, no crackles or wheezes Heart :S1 and S2 regular, no murmurs, rubs or gallop Abdomen: Soft, Non tender, non distended, bowel sounds present Extremities :no edema, no clubbing or cyanosis Neuro: AAO x 3, no focal neurological signs - Constitutional Vitals: Temp Pulse Resp BP Pulse Ox 98.3 F 78 18 116/57 100 12/26/16 17:31 12/26/16 17:31 12/26/16 17:31 12/26/16 17:31 12/26/16 17:31 General appearance: Present: no acute distress, obese Results - Labs CBC & Chem 7: 12/25/16 07:13 12/27/16 07:04 Labs: Laboratory Last Values WBC 7.3 K/mm3 (4.5-11.0) 12/25/16 07:13 RBC 4.54 M/mm3 (3.65-5.03) 12/25/16 07:13 Hgb 11.4 gm/dl (10.1-14.3) 12/25/16 07:13 Hct 35.8 % (30.3-42.9) 12/25/16 07:13 MCV 79 fl (79-97) 12/25/16 07:13 MCH 25 pg (28-32) L 12/25/16 07:13 MCHC 32 % (30-34) 12/25/16 07:13 RDW 18.1 % (13.2-15.2) H 12/25/16 07:13 Plt Count 188 K/mm3 (140-440) 12/25/16 07:13 Lymph % (Auto) Public Health Director 12/22/16 14:40 Lymph # Public Health Director 12/22/16 14:40 Add Manual Diff Complete 12/22/16 14:40 Total Counted 100 12/22/16 14:40 Seg Neutrophils % Public Health Director 12/22/16 14:40 Seg Neuts % (Manual) 39.0 % (40.0-70.0) L 12/22/16 14:40 Band Neutrophils % 0 % 12/22/16 14:40 Lymphocytes % (Manual) 49.0 % (13.4-35.0) H 12/22/16 14:40 Reactive Lymphs % (Man) 0 % 12/22/16 14:40 Monocytes % (Manual) 9.0 % (0.0-7.3) H 12/22/16 14:40 Eosinophils % (Manual) 2.0 % (0.0-4.3) 12/22/16 14:40 Basophils % (Manual) 0 % (0.0-1.8) 12/22/16 14:40 Metamyelocytes % 1.0 % 12/22/16 14:40 Myelocytes % 0 % 12/22/16 14:40 Promyelocytes % 0 % 12/22/16 14:40 Blast Cells % 0 % 12/22/16 14:40 Nucleated RBC % Not Reportable 12/22/16 14:40 Seg Neutrophils # Man 3.5 K/mm3 (1.8-7.7) 12/22/16 14:40 Band Neutrophils # 0.0 K/mm3 12/22/16 14:40 Lymphocytes # (Manual) 4.5 K/mm3 (1.2-5.4) 12/22/16 14:40 Abs React Lymphs (Man) 0.0 K/mm3 12/22/16 14:40 Monocytes # (Manual) 0.8 K/mm3 (0.0-0.8) 12/22/16 14:40 Eosinophils # (Manual) 0.2 K/mm3 (0.0-0.4) 12/22/16 14:40 Basophils # (Manual) 0.0 K/mm3 (0.0-0.1) 12/22/16 14:40 Metamyelocytes # 0.1 K/mm3 12/22/16 14:40 Myelocytes # 0.0 K/mm3 12/22/16 14:40 Promyelocytes # 0.0 K/mm3 12/22/16 14:40 Blast Cells # 0.0 K/mm3 12/22/16 14:40 WBC Morphology Not Reportable 12/22/16 14:40 Hypersegmented Neuts Not Reportable 12/22/16 14:40 Hyposegmented Neuts Not Reportable 12/22/16 14:40 Hypogranular Neuts Not Reportable 12/22/16 14:40 Smudge Cells Not Reportable 12/22/16 14:40 Toxic Granulation Not Reportable 12/22/16 14:40 Toxic Vacuolation Not Reportable 12/22/16 14:40 Dohle Bodies Not Reportable 12/22/16 14:40 Pelger-Huet Anomaly Not Reportable 12/22/16 14:40 Melba Rods Not Reportable 12/22/16 14:40 Platelet Estimate Consistent w auto 12/22/16 14:40 Clumped Platelets Not Reportable 12/22/16 14:40 Plt Clumps, EDTA Not Reportable 12/22/16 14:40 Large Platelets 1+ 12/22/16 14:40 Giant Platelets Not Reportable 12/22/16 14:40 Platelet Satelliting Not Reportable 12/22/16 14:40 Plt Morphology Comment Not Reportable 12/22/16 14:40 RBC Morphology Not Reportable 12/22/16 14:40 Dimorphic RBCs Not Reportable 12/22/16 14:40 Polychromasia Not Reportable 12/22/16 14:40 Hypochromasia 1+ 12/22/16 14:40 Poikilocytosis Not Reportable 12/22/16 14:40 Anisocytosis 1+ 12/22/16 14:40 Microcytosis Not Reportable 12/22/16 14:40 Macrocytosis Not Reportable 12/22/16 14:40 Spherocytes Not Reportable 12/22/16 14:40 Pappenheimer Bodies Not Reportable 12/22/16 14:40 Sickle Cells Not Reportable 12/22/16 14:40 Target Cells Not Reportable 12/22/16 14:40 Tear Drop Cells Not Reportable 12/22/16 14:40 Ovalocytes 1+ 12/22/16 14:40 Helmet Cells Not Reportable 12/22/16 14:40 [place] Bodies Not Reportable 12/22/16 14:40 [place] Rings Not Reportable 12/22/16 14:40 Rere Cells Not Reportable 12/22/16 14:40 Bite Cells Not Reportable 12/22/16 14:40 Crenated Cell Not Reportable 12/22/16 14:40 Elliptocytes Not Reportable 12/22/16 14:40 Acanthocytes (Spur) Not Reportable 12/22/16 14:40 Rouleaux Not Reportable 12/22/16 14:40 Hemoglobin C Crystals Not Reportable 12/22/16 14:40 Schistocytes Not Reportable 12/22/16 14:40 Malaria parasites Not Reportable 12/22/16 14:40 Germain Bodies Not Reportable 12/22/16 14:40 Hem Pathologist Commnt No 12/22/16 14:40 PT 15.0 Sec. (12.2-14.9) H 12/22/16 14:40 INR 1.12 (0.87-1.13) 12/22/16 14:40 APTT 29.5 Sec. (24.2-36.6) 12/22/16 14:40 Thrombin Time 18.4 Sec. (15.1-19.6) 12/22/16 14:40 POC ABG pH 7.449 (7.35-7.45) 12/23/16 04:42 POC ABG pCO2 33.9 (35-45) L 12/23/16 04:42 POC ABG pO2 122 (80-105) H 12/23/16 04:42 POC ABG HCO3 23.5 12/23/16 04:42 POC ABG Total CO2 25 12/23/16 04:42 POC ABG O2 Sat 99 12/23/16 04:42 POC ABG Base Excess -1 12/23/16 04:42 FiO2 50 % 12/23/16 04:42 Sodium 139 mmol/L (137-145) 12/26/16 07:04 Potassium 4.3 mmol/L (3.6-5.0) 12/26/16 07:04 Chloride 102.2 mmol/L (98-107) 12/26/16 07:04 Carbon Dioxide 23 mmol/L (22-30) 12/26/16 07:04 Anion Gap 18 mmol/L 12/26/16 07:04 BUN 23 mg/dL (7-17) H 12/26/16 07:04 Creatinine 2.1 mg/dL (0.7-1.2) H 12/26/16 07:04 Estimated GFR 28 ml/min 12/26/16 07:04 BUN/Creatinine Ratio 10.95 % 12/26/16 07:04 Glucose 270 mg/dL (65-100) H 12/26/16 07:04 POC Glucose 267 (70-105) H 12/25/16 21:45 Hemoglobin A1c 12.4 % (4-6) H 12/24/16 Unknown Ketones Quantitative Negative (Negative) 12/22/16 14:40 Lactic Acid 2.10 mmol/L (0.7-2.0) H* 12/23/16 03:09 Calcium 8.7 mg/dL (8.4-10.2) 12/26/16 07:04 Total Bilirubin 0.70 mg/dL (0.1-1.2) 12/22/16 14:40 Direct Bilirubin < 0.2 mg/dL (0-0.2) 12/22/16 14:40 Indirect Bilirubin 0.5 mg/dL 12/22/16 14:40 AST 12 units/L (5-40) 12/22/16 14:40 ALT 15 units/L (7-56) 12/22/16 14:40 Alkaline Phosphatase 108 units/L (35-129) 12/22/16 14:40 Total Creatine Kinase 67 units/L (30-135) 12/22/16 14:40 CK-MB (CK-2) 1.3 ng/mL (0.0-4.0) 12/22/16 14:40 CK-MB (CK-2) Rel Index 1.9 (0-4) 12/22/16 14:40 Troponin T < 0.010 ng/mL (0.00-0.029) 12/22/16 14:40 NT-Pro-B Natriuret Pep 1966 pg/mL (0-900) H 12/22/16 14:40 Total Protein 7.3 g/dL (6.3-8.2) 12/22/16 14:40 Albumin 3.7 g/dL (3.9-5) L 12/22/16 14:40 Albumin/Globulin Ratio 1.0 % 12/22/16 14:40
[2016-12-26] MEDS: LASIX IV SCH (17:54)
[2016-12-26] MEDS: TYLENOL PO PRN (23:01)
[2016-12-27] MEDS: LOPRESSOR PO SCH ×4 (02:45→22:20)
[2016-12-27] MEDS: SYNTHROID PO SCH (06:50)
[2016-12-27 08:29] LABS: Bacteria,Urine 2+ /HPF (Negative); Bilirubin,Urine NEG (Negative); Blood,Urine NEG (Negative); Ketones,Urine NEG (Negative); Leukocyte Esterase,Urine LG (Negative); Mucus,Urine FEW /HPF; Nitrite,Urine NEG (Negative); Urobilinogen,Urine < 2.0 mg/dL (<2.0)
[2016-12-27] MEDS: NOVOLOG SUB-Q SCH ×4 (09:47→22:11)
[2016-12-27 09:48] LABS: BUN/Creatinine Ratio 14.28; Calcium 8.7 mg/dL (8.4-10.2); Chloride 101.7 mmol/L (98-107); Potassium 4.3 mmol/L (3.6-5.0)
[2016-12-27] MEDS: LASIX IV SCH (10:03)
[2016-12-27] MEDS: ELIQUIS PO SCH ×2 (10:03→22:09)
[2016-12-27] MEDS: BABY ASPIRIN PO SCH (10:05)
[2016-12-27] MEDS: CATAPRES PO SCH ×2 (10:05→22:09)
[2016-12-27] MEDS: celeXA PO SCH (10:05)
[2016-12-27] MEDS: PEPCID PO SCH ×2 (10:05→22:09)
[2016-12-27] MEDS: APRESOLINE PO SCH ×3 (10:05→22:09)
[2016-12-27] MEDS: REVATIO PO SCH ×3 (10:06→22:10)
[2016-12-27] MEDS: LEVEMIR SUB-Q SCH (10:07)
--- NOTE | 2016-12-27 10:12 | Progress Note ---
Assessment and Plan Assessment and plan: patient is 71 years old obese -[place] female found down, intubated in ER for airway protection Acute hypoxic respiratory failure Likely secondary to CHF exacerbation Extubated 12/24 On oxygen by nasal cannula O2 sat 95% on 3 L/m nasal cannula NIPPV QHS and prn Acute on chronic systolic heart failure Lasix on hold due to worsening renal function. To resume Lasix tomorrow. Continue to monitor I/O cardiology following. Atrial fibrillation Rate controlled On Eliquis for anticoagulation generalized weakness. Obtain Physical therapy consult Acute kidney injury Renal function worsening, Creatinine 2.1 today. Lasix on hold. Nephrology following. Diabetes mellitus type 2 Long-acting insulin along with SSI Blood glucose improving Continue Accu-checks Lactic acidosis No symptoms/signs of infection Hypokalemia, resolved. DVT prophylaxis. On Eliquis Obesity Counseled regarding importance of losing weight Full code History Interval history: Less shortness of breath, No chest pain, Generalized weakness, difficulty ambulation Hospitalist Physical - Physical exam Narrative exam: Gen appearance: Not in acute distress HEENT: normocephalic, atraumatic Neck: supple, Lungs: Clear to auscultation bilaterally, no crackles or wheezes Heart :S1 and S2 regular, no murmurs, rubs or gallop Abdomen: Soft, Non tender, non distended, bowel sounds present Extremities :no edema, no clubbing or cyanosis Neuro: AAO x 3, no focal neurological signs - Constitutional Vitals: Temp Pulse Resp BP Pulse Ox 98.0 F 87 20 124/83 100 12/27/16 08:21 12/27/16 08:21 12/27/16 08:21 12/27/16 08:21 12/27/16 08:21 General appearance: Present: no acute distress, obese Results - Labs CBC & Chem 7: 12/25/16 07:13 12/27/16 07:04 Labs: Laboratory Last Values WBC 7.3 K/mm3 (4.5-11.0) 12/25/16 07:13 RBC 4.54 M/mm3 (3.65-5.03) 12/25/16 07:13 Hgb 11.4 gm/dl (10.1-14.3) 12/25/16 07:13 Hct 35.8 % (30.3-42.9) 12/25/16 07:13 MCV 79 fl (79-97) 12/25/16 07:13 MCH 25 pg (28-32) L 12/25/16 07:13 MCHC 32 % (30-34) 12/25/16 07:13 RDW 18.1 % (13.2-15.2) H 12/25/16 07:13 Plt Count 188 K/mm3 (140-440) 12/25/16 07:13 Lymph % (Auto) Nuclear Equipment Design Engineer 12/22/16 14:40 Lymph # Nuclear Equipment Design Engineer 12/22/16 14:40 Add Manual Diff Complete 12/22/16 14:40 Total Counted 100 12/22/16 14:40 Seg Neutrophils % Nuclear Equipment Design Engineer 12/22/16 14:40 Seg Neuts % (Manual) 39.0 % (40.0-70.0) L 12/22/16 14:40 Band Neutrophils % 0 % 12/22/16 14:40 Lymphocytes % (Manual) 49.0 % (13.4-35.0) H 12/22/16 14:40 Reactive Lymphs % (Man) 0 % 12/22/16 14:40 Monocytes % (Manual) 9.0 % (0.0-7.3) H 12/22/16 14:40 Eosinophils % (Manual) 2.0 % (0.0-4.3) 12/22/16 14:40 Basophils % (Manual) 0 % (0.0-1.8) 12/22/16 14:40 Metamyelocytes % 1.0 % 12/22/16 14:40 Myelocytes % 0 % 12/22/16 14:40 Promyelocytes % 0 % 12/22/16 14:40 Blast Cells % 0 % 12/22/16 14:40 Nucleated RBC % Not Reportable 12/22/16 14:40 Seg Neutrophils # Man 3.5 K/mm3 (1.8-7.7) 12/22/16 14:40 Band Neutrophils # 0.0 K/mm3 12/22/16 14:40 Lymphocytes # (Manual) 4.5 K/mm3 (1.2-5.4) 12/22/16 14:40 Abs React Lymphs (Man) 0.0 K/mm3 12/22/16 14:40 Monocytes # (Manual) 0.8 K/mm3 (0.0-0.8) 12/22/16 14:40 Eosinophils # (Manual) 0.2 K/mm3 (0.0-0.4) 12/22/16 14:40 Basophils # (Manual) 0.0 K/mm3 (0.0-0.1) 12/22/16 14:40 Metamyelocytes # 0.1 K/mm3 12/22/16 14:40 Myelocytes # 0.0 K/mm3 12/22/16 14:40 Promyelocytes # 0.0 K/mm3 12/22/16 14:40 Blast Cells # 0.0 K/mm3 12/22/16 14:40 WBC Morphology Not Reportable 12/22/16 14:40 Hypersegmented Neuts Not Reportable 12/22/16 14:40 Hyposegmented Neuts Not Reportable 12/22/16 14:40 Hypogranular Neuts Not Reportable 12/22/16 14:40 Smudge Cells Not Reportable 12/22/16 14:40 Toxic Granulation Not Reportable 12/22/16 14:40 Toxic Vacuolation Not Reportable 12/22/16 14:40 Dohle Bodies Not Reportable 12/22/16 14:40 Pelger-Huet Anomaly Not Reportable 12/22/16 14:40 Melba Rods Not Reportable 12/22/16 14:40 Platelet Estimate Consistent w auto 12/22/16 14:40 Clumped Platelets Not Reportable 12/22/16 14:40 Plt Clumps, EDTA Not Reportable 12/22/16 14:40 Large Platelets 1+ 12/22/16 14:40 Giant Platelets Not Reportable 12/22/16 14:40 Platelet Satelliting Not Reportable 12/22/16 14:40 Plt Morphology Comment Not Reportable 12/22/16 14:40 RBC Morphology Not Reportable 12/22/16 14:40 Dimorphic RBCs Not Reportable 12/22/16 14:40 Polychromasia Not Reportable 12/22/16 14:40 Hypochromasia 1+ 12/22/16 14:40 Poikilocytosis Not Reportable 12/22/16 14:40 Anisocytosis 1+ 12/22/16 14:40 Microcytosis Not Reportable 12/22/16 14:40 Macrocytosis Not Reportable 12/22/16 14:40 Spherocytes Not Reportable 12/22/16 14:40 Pappenheimer Bodies Not Reportable 12/22/16 14:40 Sickle Cells Not Reportable 12/22/16 14:40 Target Cells Not Reportable 12/22/16 14:40 Tear Drop Cells Not Reportable 12/22/16 14:40 Ovalocytes 1+ 12/22/16 14:40 Helmet Cells Not Reportable 12/22/16 14:40 Dee-Spencer Bodies Not Reportable 12/22/16 14:40 Camden Rings Not Reportable 12/22/16 14:40 Pinson Cells Not Reportable 12/22/16 14:40 Bite Cells Not Reportable 12/22/16 14:40 Crenated Cell Not Reportable 12/22/16 14:40 Elliptocytes Not Reportable 12/22/16 14:40 Acanthocytes (Spur) Not Reportable 12/22/16 14:40 Rouleaux Not Reportable 12/22/16 14:40 Hemoglobin C Crystals Not Reportable 12/22/16 14:40 Schistocytes Not Reportable 12/22/16 14:40 Malaria parasites Not Reportable 12/22/16 14:40 Germain Bodies Not Reportable 12/22/16 14:40 Hem Pathologist Commnt No 12/22/16 14:40 PT 15.0 Sec. (12.2-14.9) H 12/22/16 14:40 INR 1.12 (0.87-1.13) 12/22/16 14:40 APTT 29.5 Sec. (24.2-36.6) 12/22/16 14:40 Thrombin Time 18.4 Sec. (15.1-19.6) 12/22/16 14:40 POC ABG pH 7.449 (7.35-7.45) 12/23/16 04:42 POC ABG pCO2 33.9 (35-45) L 12/23/16 04:42 POC ABG pO2 122 (80-105) H 12/23/16 04:42 POC ABG HCO3 23.5 12/23/16 04:42 POC ABG Total CO2 25 12/23/16 04:42 POC ABG O2 Sat 99 12/23/16 04:42 POC ABG Base Excess -1 12/23/16 04:42 FiO2 50 % 12/23/16 04:42 Sodium 140 mmol/L (137-145) 12/27/16 07:04 Potassium 4.3 mmol/L (3.6-5.0) 12/27/16 07:04 Chloride 101.7 mmol/L (98-107) 12/27/16 07:04 Carbon Dioxide 24 mmol/L (22-30) 12/27/16 07:04 Anion Gap 19 mmol/L 12/27/16 07:04 BUN 30 mg/dL (7-17) H 12/27/16 07:04 Creatinine 2.1 mg/dL (0.7-1.2) H 12/27/16 07:04 Estimated GFR 28 ml/min 12/27/16 07:04 BUN/Creatinine Ratio 14.28 % 12/27/16 07:04 Glucose 177 mg/dL (65-100) H 12/27/16 07:04 POC Glucose 201 (70-105) H 12/27/16 08:21 Hemoglobin A1c 12.4 % (4-6) H 12/24/16 Unknown Ketones Quantitative Negative (Negative) 12/22/16 14:40 Lactic Acid 2.10 mmol/L (0.7-2.0) H* 12/23/16 03:09 Calcium 8.7 mg/dL (8.4-10.2) 12/27/16 07:04 Total Bilirubin 0.70 mg/dL (0.1-1.2) 12/22/16 14:40 Direct Bilirubin < 0.2 mg/dL (0-0.2) 12/22/16 14:40 Indirect Bilirubin 0.5 mg/dL 12/22/16 14:40 AST 12 units/L (5-40) 12/22/16 14:40 ALT 15 units/L (7-56) 12/22/16 14:40 Alkaline Phosphatase 108 units/L (35-129) 12/22/16 14:40 Total Creatine Kinase 67 units/L (30-135) 12/22/16 14:40 CK-MB (CK-2) 1.3 ng/mL (0.0-4.0) 12/22/16 14:40 CK-MB (CK-2) Rel Index 1.9 (0-4) 12/22/16 14:40 Troponin T < 0.010 ng/mL (0.00-0.029) 12/22/16 14:40 NT-Pro-B Natriuret Pep 1966 pg/mL (0-900) H 12/22/16 14:40 Total Protein 7.3 g/dL (6.3-8.2) 12/22/16 14:40 Albumin 3.7 g/dL (3.9-5) L 12/22/16 14:40 Albumin/Globulin Ratio 1.0 % 12/22/16 14:40 Urine Color Yellow (Yellow) 12/27/16 05:00 Urine Turbidity Cloudy (Clear) 12/27/16 05:00 Urine pH 5.0 (5.0-7.0) 12/27/16 05:00 Ur Specific [place] 1.015 (1.003-1.030) 12/27/16 05:00 Urine Protein 100 mg/dl mg/dL (Negative) 12/27/16 05:00 Urine Glucose (UA) Neg mg/dL (Negative) 12/27/16 05:00 Urine Ketones Neg mg/dL (Negative) 12/27/16 05:00 Urine Blood Neg (Negative) 12/27/16 05:00 Urine Nitrite Neg (Negative) 12/27/16 05:00 Urine Bilirubin Neg (Negative) 12/27/16 05:00 Urine Urobilinogen < 2.0 mg/dL (<2.0) 12/27/16 05:00 Ur Leukocyte Esterase Lg (Negative) 12/27/16 05:00 Urine WBC (Auto) 33.0 /HPF (0.0-6.0) H 12/27/16 05:00 Urine RBC (Auto) 16.0 /HPF (0.0-6.0) 12/27/16 05:00 U Epithel Cells (Auto) 14.0 /HPF (0-13.0) H 12/27/16 05:00 Urine Bacteria (Auto) 2+ /HPF (Negative) 12/27/16 05:00 Urine Mucus Few /HPF 12/27/16 05:00 Urine Yeast (Budding) 2+ /HPF 12/27/16 05:00
[2016-12-27] MEDS: DUONEB *Not for PRN Use IH SCH ×4 (10:29→21:09)
[2016-12-27] MEDS ORDERED: PROVENTIL IH PRN (11:10)
--- NOTE | 2016-12-27 11:31 | Progress Note ---
Assessment and Plan ARF/MV support.Resolved CHF.Improved Afib AMS improved CLAUDIO.Improving NIDHI.On CPAP Rec OOB as tolerated Afib,CHF TX per cardiology Continue current CPAP. Can do TX review, do log download OPD Subjective Date of service: 12/27/16 Principal diagnosis: AMS,chf nidhi Interval history: Reports no respiratory complains. When asked, minimal cough noted. Using CPAP at night, no problems Objective Vital Signs - 12hr 12/27/16 12/27/16 12/27/16 02:45 06:00 08:21 Temperature 98.3 F 98.0 F Pulse Rate 79 77 87 Pulse Rate [ Anterior Bilateral Throughout] Respiratory 20 20 Rate Respiratory Rate [Anterior Bilateral Throughout] Blood Pressure 126/68 126/68 124/83 O2 Sat by Pulse 100 100 Oximetry 12/27/16 12/27/16 12/27/16 10:05 10:09 11:01 Temperature Pulse Rate 87 87 Pulse Rate [ Anterior Bilateral Throughout] Respiratory Rate Respiratory Rate [Anterior Bilateral Throughout] Blood Pressure 124/83 124/84 O2 Sat by Pulse 95 Oximetry 12/27/16 12/27/16 12/27/16 11:04 11:09 11:26 Temperature Pulse Rate Pulse Rate [ 90 87 Anterior Bilateral Throughout] Respiratory Rate Respiratory 20 20 Rate [Anterior Bilateral Throughout] Blood Pressure O2 Sat by Pulse 96 Oximetry Constitutional: no acute distress, alert Eyes: non-icteric Neck: supple, no JVD Effort: normal Ascultation: Bilateral: clear Percussion: Bilateral: not dull Cardiovascular: regular rate and rhythm Gastrointestinal: normoactive bowel sounds, other (obese) Integumentary: normal Neurologic: normal mental status (answers appropiately,slow though process?), non-focal exam, pupils equal and round, CN II-XII normal CBC and BMP: 12/25/16 07:13 12/27/16 07:04 ABG, PT/INR, D-dimer: ABG POC ABG pH 7.449 (7.35-7.45) 12/23/16 04:42 POC ABG pCO2 33.9 (35-45) L 12/23/16 04:42 POC ABG pO2 122 (80-105) H 12/23/16 04:42 POC ABG HCO3 23.5 12/23/16 04:42 POC ABG Total CO2 25 12/23/16 04:42 POC ABG O2 Sat 99 12/23/16 04:42 PT/INR, D-dimer PT 15.0 Sec. (12.2-14.9) H 12/22/16 14:40 INR 1.12 (0.87-1.13) 12/22/16 14:40 Abnormal lab findings: Abnormal Labs 12/22/16 12/22/16 12/22/16 17:34 19:45 21:35 MCV MCH RDW POC ABG pCO2 POC ABG pO2 Sodium 132 L Potassium Chloride 91.3 L Carbon Dioxide BUN Creatinine Glucose 661 H* POC Glucose 497 H Hemoglobin A1c Lactic Acid 2.10 H* Calcium Urine WBC (Auto) U Epithel Cells (Auto) Urine Total Protein 12/22/16 12/23/16 12/23/16 22:11 02:56 03:09 MCV 78 L MCH 25 L RDW 17.5 H POC ABG pCO2 POC ABG pO2 Sodium Potassium Chloride Carbon Dioxide BUN Creatinine Glucose POC Glucose 458 H 377 H Hemoglobin A1c Lactic Acid Calcium Urine WBC (Auto) U Epithel Cells (Auto) Urine Total Protein 12/23/16 12/23/16 12/23/16 03:09 03:09 04:42 MCV MCH RDW POC ABG pCO2 33.9 L POC ABG pO2 122 H Sodium Potassium Chloride Carbon Dioxide 20 L BUN Creatinine Glucose 338 H POC Glucose Hemoglobin A1c Lactic Acid 2.10 H* Calcium 8.1 L Urine WBC (Auto) U Epithel Cells (Auto) Urine Total Protein 12/23/16 12/23/16 12/23/16 06:20 10:21 14:04 MCV MCH RDW POC ABG pCO2 POC ABG pO2 Sodium Potassium Chloride Carbon Dioxide BUN Creatinine Glucose POC Glucose 322 H 248 H 215 H Hemoglobin A1c Lactic Acid Calcium Urine WBC (Auto) U Epithel Cells (Auto) Urine Total Protein 12/23/16 12/23/16 12/24/16 18:05 21:26 01:45 MCV MCH RDW POC ABG pCO2 POC ABG pO2 Sodium Potassium Chloride Carbon Dioxide BUN Creatinine Glucose POC Glucose 146 H 202 H 277 H Hemoglobin A1c Lactic Acid Calcium Urine WBC (Auto) U Epithel Cells (Auto) Urine Total Protein 12/24/16 12/24/16 12/24/16 05:38 11:48 16:10 MCV MCH RDW POC ABG pCO2 POC ABG pO2 Sodium Potassium Chloride Carbon Dioxide BUN Creatinine Glucose POC Glucose 111 H 165 H 255 H Hemoglobin A1c Lactic Acid Calcium Urine WBC (Auto) U Epithel Cells (Auto) Urine Total Protein 12/24/16 12/24/16 12/24/16 21:22 Unknown Unknown MCV 78 L MCH 25 L RDW 18.3 H POC ABG pCO2 POC ABG pO2 Sodium Potassium 3.5 L Chloride Carbon Dioxide BUN Creatinine 1.6 H D Glucose 113 H POC Glucose 268 H Hemoglobin A1c Lactic Acid Calcium 8.2 L Urine WBC (Auto) U Epithel Cells (Auto) Urine Total Protein 12/24/16 12/25/16 12/25/16 Unknown 07:13 07:13 MCV MCH 25 L RDW 18.1 H POC ABG pCO2 POC ABG pO2 Sodium Potassium Chloride Carbon Dioxide BUN 18 H Creatinine 2.0 H Glucose 206 H POC Glucose Hemoglobin A1c 12.4 H Lactic Acid Calcium Urine WBC (Auto) U Epithel Cells (Auto) Urine Total Protein 12/25/16 12/25/16 12/25/16 08:12 13:20 17:01 MCV MCH RDW POC ABG pCO2 POC ABG pO2 Sodium Potassium Chloride Carbon Dioxide BUN Creatinine Glucose POC Glucose 218 H 332 H 320 H Hemoglobin A1c Lactic Acid Calcium Urine WBC (Auto) U Epithel Cells (Auto) Urine Total Protein 12/25/16 12/26/16 12/26/16 21:45 07:04 08:52 MCV MCH RDW POC ABG pCO2 POC ABG pO2 Sodium Potassium Chloride Carbon Dioxide BUN 23 H Creatinine 2.1 H Glucose 270 H POC Glucose 267 H 294 H Hemoglobin A1c Lactic Acid Calcium Urine WBC (Auto) U Epithel Cells (Auto) Urine Total Protein 12/26/16 12/26/16 12/26/16 12:45 16:57 21:42 MCV MCH RDW POC ABG pCO2 POC ABG pO2 Sodium Potassium Chloride Carbon Dioxide BUN Creatinine Glucose POC Glucose 342 H 356 H 185 H Hemoglobin A1c Lactic Acid Calcium Urine WBC (Auto) U Epithel Cells (Auto) Urine Total Protein 12/27/16 12/27/16 12/27/16 05:00 05:00 07:04 MCV MCH RDW POC ABG pCO2 POC ABG pO2 Sodium Potassium Chloride Carbon Dioxide BUN 30 H Creatinine 2.1 H Glucose 177 H POC Glucose Hemoglobin A1c Lactic Acid Calcium Urine WBC (Auto) 33.0 H U Epithel Cells (Auto) 14.0 H Urine Total Protein 93 H 12/27/16 08:21 MCV MCH RDW POC ABG pCO2 POC ABG pO2 Sodium Potassium Chloride Carbon Dioxide BUN Creatinine Glucose POC Glucose 201 H Hemoglobin A1c Lactic Acid Calcium Urine WBC (Auto) U Epithel Cells (Auto) Urine Total Protein
--- NOTE | 2016-12-27 11:55 | Progress Note ---
Assessment and Plan Acute respiratory failure Altered mental status, resolved no acute intracranial process on head CT Lactic acidosis Acute renal failure Diabetes mellitus Sleep apnea Hypertension Persistent Afib on eliquis at home for anticoagulation on metoprolol for rate control CHF, diastolic EF 45-50% on echo 04/2016 no reversible ischemia on MPI 12/2015 Pulmonary HTN Recommendations: Continue medical therapy for atrial fibrillation and mild cardiomyopathy. Conservative cardiac management, Subjective Date of service: 12/27/16 Principal diagnosis: AMS,chf denia Interval history: Patient has no complaints. Afib with a well controlled ventricular response on telemetry. Objective Vital Signs Temp Pulse Pulse Resp Resp BP Pulse Ox 12/27/16 11:26 87 20 12/27/16 11:09 96 12/27/16 11:04 90 20 12/27/16 11:01 95 12/27/16 10:09 87 124/84 12/27/16 10:05 87 124/83 12/27/16 08:21 98.0 F 87 20 124/83 100 12/27/16 06:00 98.3 F 77 20 126/68 100 12/27/16 02:45 79 126/68 12/26/16 23:25 98.3 F 75 20 160/97 96 12/26/16 22:58 88 139/88 12/26/16 22:45 96 12/26/16 22:00 92 H 98 12/26/16 21:35 82 20 12/26/16 21:25 84 20 12/26/16 21:17 97.4 F L 81 20 139/88 94 12/26/16 21:05 88 139/88 12/26/16 17:31 98.3 F 78 18 116/57 100 12/26/16 13:56 98.3 F 97 H 18 164/94 99 - Physical Examination General: No Apparent Distress HEENT: Positive: PERRL Cardiac: Positive: irregularly irregular Neuro: Positive: Grossly Intact - Labs and Meds Comprehensive Metabolic Panel 12/27/16 Range/Units 07:04 Sodium 140 (137-145) mmol/L Potassium 4.3 (3.6-5.0) mmol/L Chloride 101.7 (98-107) mmol/L Carbon Dioxide 24 (22-30) mmol/L BUN 30 H (7-17) mg/dL Creatinine 2.1 H (0.7-1.2) mg/dL Glucose 177 H (65-100) mg/dL Calcium 8.7 (8.4-10.2) mg/dL - Imaging and Cardiology EKG: report reviewed
--- NOTE | 2016-12-27 12:30 | Progress Note ---
Assessment and Plan - Patient Problems (1) Acute kidney injury Current Visit: Yes Status: Acute Plan to address problem: acute kidney injury is due to pre-renal azotemia in the setting of IV diuresis and acute cardiorenal syndrome. Improved respiratory status noted. Given worsening azotemia will transition lasix to po. check UA, urine lytes/protein/cr ratio. supportive care for CLAUDIO avoid nephrotoxins, NSAIDs IV contrast. Will monitor lytes/renal parameters and make further recommendations (2) Atrial fibrillation Current Visit: Yes Status: Acute Qualifiers: Atrial fibrillation type: chronic Qualified Code(s): I48.2 - Chronic atrial fibrillation Plan to address problem: rate control as per cardiology (3) Congestive heart failure Current Visit: Yes Status: Acute Qualifiers: Congestive heart failure type: combined Congestive heart failure chronicity : acute on chronic Qualified Code(s): I50.43 - Acute on chronic combined systolic (congestive) and diastolic (congestive) heart failure Plan to address problem: cont lasix 40mg po qd for volume control. rate control as per cardio, on metoprolol. hold KENNETH-I/ARB until eGFR is in steady state. strict I/Os, fluid restriction to 1.5L /day (4) Uncontrolled hypertension Current Visit: Yes Status: Acute Plan to address problem: monitor BP on current meds (5) Obstructive sleep apnea Current Visit: Yes Status: Acute Plan to address problem: cont CPAP, bronchodilator therapy as per pulmonary consult (6) Altered mental status Current Visit: Yes Status: Acute Qualifiers: Altered mental status type: delirium Coma depth: C Coma timing: C Qualified Code(s): R41.0 - Disorientation, unspecified Plan to address problem: improved mental status Subjective Date of service: 12/27/16 Principal diagnosis: AMS,chf denia Interval history: pt awake, alert, reports improved breathing. Objective - Vital Signs Vital signs: Vital Signs - 12hr 12/27/16 12/27/16 12/27/16 02:45 06:00 08:21 Temperature 98.3 F 98.0 F Pulse Rate 79 77 87 Pulse Rate [ Anterior Bilateral Throughout] Respiratory 20 20 Rate Respiratory Rate [Anterior Bilateral Throughout] Blood Pressure 126/68 126/68 124/83 O2 Sat by Pulse 100 100 Oximetry 12/27/16 12/27/16 12/27/16 10:05 10:09 11:01 Temperature Pulse Rate 87 87 Pulse Rate [ Anterior Bilateral Throughout] Respiratory Rate Respiratory Rate [Anterior Bilateral Throughout] Blood Pressure 124/83 124/84 O2 Sat by Pulse 95 Oximetry 12/27/16 12/27/16 12/27/16 11:04 11:09 11:26 Temperature Pulse Rate Pulse Rate [ 90 87 Anterior Bilateral Throughout] Respiratory Rate Respiratory 20 20 Rate [Anterior Bilateral Throughout] Blood Pressure O2 Sat by Pulse 96 Oximetry - Lab 12/25/16 07:13 12/27/16 07:04 Most recent lab results Calcium 8.7 mg/dL (8.4-10.2) 12/27/16 07:04 Urine Sodium 16 mEq/L 12/27/16 05:00 Urine Total Protein 93 mg/dL (5-11.8) H 12/27/16 05:00
[2016-12-27] MEDS ORDERED: LEVAQUIN 500MG/100ML 500 MG/100 ML BAG IV SCH (19:00)
[2016-12-27] MEDS ORDERED: LEVAQUIN 750MG/150ML 750 MG/150 ML BAG IV SCH (20:00)
[2016-12-27] MEDS: TYLENOL PO PRN (22:19)
[2016-12-28] MEDS: LOPRESSOR PO SCH ×4 (02:18→21:26)
[2016-12-28] MEDS: SYNTHROID PO SCH (05:21)
[2016-12-28] MEDS ORDERED: LASIX PO SCH ×3 (06:00→22:00)
[2016-12-28 06:55] LABS: Hematocrit 35.7 % (30.3-42.9); Hemoglobin 11.5 gm/dl (10.1-14.3); Mean Corpuscular HGB Conc 32 % (30-34); Mean Corpuscular Volume 78 fl (79-97); Platelet Count 197 K/mm3 (140-440); Red Blood Count 4.57 M/mm3 (3.65-5.03); Red Cell Distribution Width 17.8 % (13.2-15.2); White Blood Count 5.7 K/mm3 (4.5-11.0)
[2016-12-28 07:02] LABS: Mean Corpuscular Hemoglobin 25 pg (28-32)
[2016-12-28 07:14] LABS: Calcium 8.7 mg/dL (8.4-10.2); Chloride 97.8 mmol/L (98-107); Potassium 4.1 mmol/L (3.6-5.0)
[2016-12-28] MEDS: NOVOLOG SUB-Q SCH ×4 (07:41→22:08)
[2016-12-28] MEDS: DUONEB *Not for PRN Use IH SCH ×3 (08:26→21:04)
[2016-12-28] MEDS: celeXA PO SCH (09:28)
[2016-12-28] MEDS: PEPCID PO SCH ×2 (09:28→21:23)
[2016-12-28] MEDS: ELIQUIS PO SCH ×2 (09:28→21:23)
[2016-12-28] MEDS: BABY ASPIRIN PO SCH (09:29)
[2016-12-28] MEDS: REVATIO PO SCH ×3 (09:38→21:23)
[2016-12-28] MEDS: APRESOLINE PO SCH ×3 (09:39→21:24)
[2016-12-28] MEDS: CATAPRES PO SCH ×2 (09:39→21:23)
[2016-12-28] MEDS: LEVEMIR SUB-Q SCH (09:40)
--- NOTE | 2016-12-28 09:56 | Progress Note ---
Assessment and Plan Acute respiratory failure Altered mental status, resolved no acute intracranial process on head CT Lactic acidosis Acute renal failure Diabetes mellitus Sleep apnea Hypertension Persistent Afib on eliquis at home for anticoagulation on metoprolol for rate control CHF, diastolic EF 45-50% on echo 04/2016 no reversible ischemia on MPI 12/2015 Pulmonary HTN Recommendations: Continue medical therapy for atrial fibrillation and mild cardiomyopathy. Conservative cardiac management. Subjective Date of service: 12/28/16 Principal diagnosis: AMS,chf denia Interval history: Patient has no complaints. Reports her breathing has somewhat improved. Afib with a well controlled ventricular response on telemetry. Objective Vital Signs Temp Pulse Pulse Resp Resp BP Pulse Ox 12/28/16 09:39 77 159/89 12/28/16 08:37 78 16 12/28/16 08:27 73 16 12/28/16 08:26 98 12/28/16 05:22 98.6 F 81 20 130/80 97 12/28/16 02:18 74 121/75 12/28/16 00:40 97.6 F 90 20 93/50 95 12/27/16 22:20 88 142/82 12/27/16 22:19 18 12/27/16 22:09 88 142/82 12/27/16 22:00 76 22 98 12/27/16 20:48 82 16 12/27/16 20:45 95 12/27/16 20:38 88 18 12/27/16 20:37 97.5 F L 88 20 142/82 100 12/27/16 20:00 98.1 F 78 18 135/72 98 12/27/16 16:55 77 138/88 12/27/16 16:38 77 20 138/88 99 12/27/16 15:34 98 H 20 12/27/16 15:23 96 H 20 12/27/16 11:26 87 20 12/27/16 11:09 96 12/27/16 11:04 90 20 12/27/16 11:01 95 12/27/16 10:09 87 124/84 12/27/16 10:05 87 124/83 12/27/16 10:00 86 - Physical Examination General: No Apparent Distress HEENT: Positive: PERRL Cardiac: Positive: irregularly irregular Neuro: Positive: Grossly Intact - Labs and Meds CBC 12/28/16 Range/Units 06:04 WBC 5.7 (4.5-11.0) K/mm3 RBC 4.57 (3.65-5.03) M/mm3 Hgb 11.5 (10.1-14.3) gm/dl Hct 35.7 (30.3-42.9) % Plt Count 197 (140-440) K/mm3 Comprehensive Metabolic Panel 12/28/16 Range/Units 06:04 Sodium 137 (137-145) mmol/L Potassium 4.1 (3.6-5.0) mmol/L Chloride 97.8 L (98-107) mmol/L Carbon Dioxide 25 (22-30) mmol/L BUN 33 H (7-17) mg/dL Creatinine 2.2 H (0.7-1.2) mg/dL Glucose 209 H (65-100) mg/dL Calcium 8.7 (8.4-10.2) mg/dL - Imaging and Cardiology EKG: report reviewed
--- NOTE | 2016-12-28 09:57 | Progress Note ---
Assessment and Plan ARF/MV support.Resolved CHF.Improved Afib. This controlled at this time. AMS improved CLAUDIO.Improving NIDHI.On CPAP Rec OOB as tolerated Afib,CHF TX per cardiology Continue current CPAP. She follows with a class a truck driver, Dr. Capone, at [place]. Continue CPAP and sleep apnea treatment. We'll sign off unless needed Subjective Date of service: 12/28/16 Principal diagnosis: AMS,chf nidhi, hypercapnic respiratory failure episode Interval history: No respiratory complaints. Good tolerance to CPAP last night. Objective Vital Signs - 12hr 12/27/16 12/27/16 12/27/16 22:00 22:09 22:19 Temperature Pulse Rate 76 88 Pulse Rate [ Anterior Bilateral Throughout] Respiratory 22 18 Rate Respiratory Rate [Anterior Bilateral Throughout] Blood Pressure 142/82 O2 Sat by Pulse 98 Oximetry 12/27/16 12/28/16 12/28/16 22:20 00:40 02:18 Temperature 97.6 F Pulse Rate 88 90 74 Pulse Rate [ Anterior Bilateral Throughout] Respiratory 20 Rate Respiratory Rate [Anterior Bilateral Throughout] Blood Pressure 142/82 93/50 121/75 O2 Sat by Pulse 95 Oximetry 12/28/16 12/28/16 12/28/16 05:22 08:00 08:26 Temperature 98.6 F 97.4 F L Pulse Rate 81 77 Pulse Rate [ Anterior Bilateral Throughout] Respiratory 20 20 Rate Respiratory Rate [Anterior Bilateral Throughout] Blood Pressure 130/80 159/89 O2 Sat by Pulse 97 100 98 Oximetry 12/28/16 12/28/16 12/28/16 08:27 08:37 09:39 Temperature Pulse Rate 77 Pulse Rate [ 73 78 Anterior Bilateral Throughout] Respiratory Rate Respiratory 16 16 Rate [Anterior Bilateral Throughout] Blood Pressure 159/89 O2 Sat by Pulse Oximetry Constitutional: no acute distress, alert Eyes: non-icteric Neck: supple, no JVD Effort: normal Ascultation: Bilateral: clear, diminished breath sounds Percussion: Bilateral: not dull Cardiovascular: regular rate and rhythm Gastrointestinal: normoactive bowel sounds, other (obese) Integumentary: normal Neurologic: normal mental status, non-focal exam, pupils equal and round, CN II- XII normal CBC and BMP: 12/28/16 06:04 12/28/16 06:04 ABG, PT/INR, D-dimer: ABG POC ABG pH 7.449 (7.35-7.45) 12/23/16 04:42 POC ABG pCO2 33.9 (35-45) L 12/23/16 04:42 POC ABG pO2 122 (80-105) H 12/23/16 04:42 POC ABG HCO3 23.5 12/23/16 04:42 POC ABG Total CO2 25 12/23/16 04:42 POC ABG O2 Sat 99 12/23/16 04:42 PT/INR, D-dimer PT 15.0 Sec. (12.2-14.9) H 12/22/16 14:40 INR 1.12 (0.87-1.13) 12/22/16 14:40 Abnormal lab findings: Abnormal Labs 12/22/16 12/22/16 12/22/16 17:34 19:45 21:35 MCV MCH RDW POC ABG pCO2 POC ABG pO2 Sodium 132 L Potassium Chloride 91.3 L Carbon Dioxide BUN Creatinine Glucose 661 H* POC Glucose 497 H Hemoglobin A1c Lactic Acid 2.10 H* Calcium Urine WBC (Auto) U Epithel Cells (Auto) Urine Creatinine Urine Microalbumin Urine Total Protein 12/22/16 12/23/16 12/23/16 22:11 02:56 03:09 MCV 78 L MCH 25 L RDW 17.5 H POC ABG pCO2 POC ABG pO2 Sodium Potassium Chloride Carbon Dioxide BUN Creatinine Glucose POC Glucose 458 H 377 H Hemoglobin A1c Lactic Acid Calcium Urine WBC (Auto) U Epithel Cells (Auto) Urine Creatinine Urine Microalbumin Urine Total Protein 12/23/16 12/23/16 12/23/16 03:09 03:09 04:42 MCV MCH RDW POC ABG pCO2 33.9 L POC ABG pO2 122 H Sodium Potassium Chloride Carbon Dioxide 20 L BUN Creatinine Glucose 338 H POC Glucose Hemoglobin A1c Lactic Acid 2.10 H* Calcium 8.1 L Urine WBC (Auto) U Epithel Cells (Auto) Urine Creatinine Urine Microalbumin Urine Total Protein 12/23/16 12/23/16 12/23/16 06:20 10:21 14:04 MCV MCH RDW POC ABG pCO2 POC ABG pO2 Sodium Potassium Chloride Carbon Dioxide BUN Creatinine Glucose POC Glucose 322 H 248 H 215 H Hemoglobin A1c Lactic Acid Calcium Urine WBC (Auto) U Epithel Cells (Auto) Urine Creatinine Urine Microalbumin Urine Total Protein 12/23/16 12/23/16 12/24/16 18:05 21:26 01:45 MCV MCH RDW POC ABG pCO2 POC ABG pO2 Sodium Potassium Chloride Carbon Dioxide BUN Creatinine Glucose POC Glucose 146 H 202 H 277 H Hemoglobin A1c Lactic Acid Calcium Urine WBC (Auto) U Epithel Cells (Auto) Urine Creatinine Urine Microalbumin Urine Total Protein 12/24/16 12/24/16 12/24/16 05:38 11:48 16:10 MCV MCH RDW POC ABG pCO2 POC ABG pO2 Sodium Potassium Chloride Carbon Dioxide BUN Creatinine Glucose POC Glucose 111 H 165 H 255 H Hemoglobin A1c Lactic Acid Calcium Urine WBC (Auto) U Epithel Cells (Auto) Urine Creatinine Urine Microalbumin Urine Total Protein 12/24/16 12/24/16 12/24/16 21:22 Unknown Unknown MCV 78 L MCH 25 L RDW 18.3 H POC ABG pCO2 POC ABG pO2 Sodium Potassium 3.5 L Chloride Carbon Dioxide BUN Creatinine 1.6 H D Glucose 113 H POC Glucose 268 H Hemoglobin A1c Lactic Acid Calcium 8.2 L Urine WBC (Auto) U Epithel Cells (Auto) Urine Creatinine Urine Microalbumin Urine Total Protein 12/24/16 12/25/16 12/25/16 Unknown 07:13 07:13 MCV MCH 25 L RDW 18.1 H POC ABG pCO2 POC ABG pO2 Sodium Potassium Chloride Carbon Dioxide BUN 18 H Creatinine 2.0 H Glucose 206 H POC Glucose Hemoglobin A1c 12.4 H Lactic Acid Calcium Urine WBC (Auto) U Epithel Cells (Auto) Urine Creatinine Urine Microalbumin Urine Total Protein 12/25/16 12/25/16 12/25/16 08:12 13:20 17:01 MCV MCH RDW POC ABG pCO2 POC ABG pO2 Sodium Potassium Chloride Carbon Dioxide BUN Creatinine Glucose POC Glucose 218 H 332 H 320 H Hemoglobin A1c Lactic Acid Calcium Urine WBC (Auto) U Epithel Cells (Auto) Urine Creatinine Urine Microalbumin Urine Total Protein 12/25/16 12/26/16 12/26/16 21:45 07:04 08:52 MCV MCH RDW POC ABG pCO2 POC ABG pO2 Sodium Potassium Chloride Carbon Dioxide BUN 23 H Creatinine 2.1 H Glucose 270 H POC Glucose 267 H 294 H Hemoglobin A1c Lactic Acid Calcium Urine WBC (Auto) U Epithel Cells (Auto) Urine Creatinine Urine Microalbumin Urine Total Protein 12/26/16 12/26/16 12/26/16 12:45 16:57 21:42 MCV MCH RDW POC ABG pCO2 POC ABG pO2 Sodium Potassium Chloride Carbon Dioxide BUN Creatinine Glucose POC Glucose 342 H 356 H 185 H Hemoglobin A1c Lactic Acid Calcium Urine WBC (Auto) U Epithel Cells (Auto) Urine Creatinine Urine Microalbumin Urine Total Protein 12/27/16 12/27/16 12/27/16 05:00 05:00 07:04 MCV MCH RDW POC ABG pCO2 POC ABG pO2 Sodium Potassium Chloride Carbon Dioxide BUN 30 H Creatinine 2.1 H Glucose 177 H POC Glucose Hemoglobin A1c Lactic Acid Calcium Urine WBC (Auto) 33.0 H U Epithel Cells (Auto) 14.0 H Urine Creatinine 174.8 H Urine Microalbumin 49.1 H Urine Total Protein 93 H 12/27/16 12/27/16 12/27/16 08:21 16:35 21:29 MCV MCH RDW POC ABG pCO2 POC ABG pO2 Sodium Potassium Chloride Carbon Dioxide BUN Creatinine Glucose POC Glucose 201 H 323 H 275 H Hemoglobin A1c Lactic Acid Calcium Urine WBC (Auto) U Epithel Cells (Auto) Urine Creatinine Urine Microalbumin Urine Total Protein 12/28/16 12/28/16 06:04 06:04 MCV 78 L MCH 25 L RDW 17.8 H POC ABG pCO2 POC ABG pO2 Sodium Potassium Chloride 97.8 L Carbon Dioxide BUN 33 H Creatinine 2.2 H Glucose 209 H POC Glucose Hemoglobin A1c Lactic Acid Calcium Urine WBC (Auto) U Epithel Cells (Auto) Urine Creatinine Urine Microalbumin Urine Total Protein
--- NOTE | 2016-12-28 11:09 | Progress Note ---
Assessment and Plan - Patient Problems (1) Acute kidney injury Current Visit: Yes Status: Acute Plan to address problem: acute kidney injury is due to pre-renal azotemia in the setting of IV diuresis and acute cardiorenal syndrome. Improved respiratory status noted. stable renal function with Cr around 2.2mg/ dl supportive care for CLAUDIO avoid nephrotoxins, NSAIDs IV contrast. Will monitor lytes/renal parameters and make further recommendations (2) Atrial fibrillation Current Visit: Yes Status: Acute Qualifiers: Atrial fibrillation type: chronic Qualified Code(s): I48.2 - Chronic atrial fibrillation Plan to address problem: rate control as per cardiology (3) Congestive heart failure Current Visit: Yes Status: Acute Qualifiers: Congestive heart failure type: combined Congestive heart failure chronicity : acute on chronic Qualified Code(s): I50.43 - Acute on chronic combined systolic (congestive) and diastolic (congestive) heart failure Plan to address problem: FeNA 0.14%. Given persistent fluid overload, increasing weight, will increase lasix to 40mg po bid and titrated up to her home dose of 80mg po bid and add metolazone if fluid status does not improve. rate control as per cardio, on metoprolol. hold KENNETH-I/ARB until eGFR is in steady state. strict I/Os, fluid restriction to 1.5L /day (4) Uncontrolled hypertension Current Visit: Yes Status: Acute Plan to address problem: monitor BP on current meds (5) Obstructive sleep apnea Current Visit: Yes Status: Acute Plan to address problem: cont CPAP, bronchodilator therapy as per pulmonary consult (6) Altered mental status Current Visit: Yes Status: Acute Qualifiers: Altered mental status type: delirium Coma depth: C Coma timing: C Qualified Code(s): R41.0 - Disorientation, unspecified Plan to address problem: improved mental status Subjective Date of service: 12/28/16 Principal diagnosis: AMS,chf denia, hypercapnic respiratory failure episode Interval history: pt awake, alert, reports improved breathing. Objective - Vital Signs Vital signs: Vital Signs - 12hr 12/28/16 12/28/16 12/28/16 00:40 02:18 05:22 Temperature 97.6 F 98.6 F Pulse Rate 90 74 81 Pulse Rate [ Anterior Bilateral Throughout] Respiratory 20 20 Rate Respiratory Rate [Anterior Bilateral Throughout] Blood Pressure 93/50 121/75 130/80 O2 Sat by Pulse 95 97 Oximetry 08/23/17 08/23/17 08/23/17 08:00 08:26 08:27 Temperature 97.4 F L Pulse Rate 77 Pulse Rate [ 73 Anterior Bilateral Throughout] Respiratory 20 Rate Respiratory 16 Rate [Anterior Bilateral Throughout] Blood Pressure 159/89 O2 Sat by Pulse 100 98 Oximetry 12/28/16 12/28/16 08:37 09:39 Temperature Pulse Rate 77 Pulse Rate [ 78 Anterior Bilateral Throughout] Respiratory Rate Respiratory 16 Rate [Anterior Bilateral Throughout] Blood Pressure 159/89 O2 Sat by Pulse Oximetry - General Appearance General appearance: well-developed, well-nourished, appears stated age EENT: ATNC, PERRL, mucous membranes moist Respiratory: Present: Decreased Breath Sounds Cardiology: regular, S1S2 Gastrointestinal: normoactive bowel sounds Integumentary: no rash, other (1+ edema b/l LE) Neurologic: no focal deficit, alert and oriented x3, strength 5/5, CN 3-12 intact Psychiatric: mood/affect appropriate, cooperative - Lab 12/28/16 06:04 12/28/16 06:04 Most recent lab results Calcium 8.7 mg/dL (8.4-10.2) 12/28/16 06:04 Urine Creatinine 174.8 mg/dL (0.1-20.0) H 12/27/16 05:00 Urine Sodium 16 mEq/L 12/27/16 05:00 Urine Total Protein 93 mg/dL (5-11.8) H 12/27/16 05:00
[2016-12-28] MEDS: TYLENOL PO PRN (15:59)
--- NOTE | 2016-12-28 18:36 | Progress Note ---
Assessment and Plan Assessment and plan: patient is 71 years old obese -[place] female found down, intubated in ER for airway protection Acute hypoxic respiratory failure Likely secondary to CHF exacerbation Extubated 12/24 On oxygen by nasal cannula NIPPV QHS and prn Acute on chronic systolic heart failure Lasix on hold due to worsening renal function. To resume Lasix tomorrow. Continue to monitor I/O cardiology following. Atrial fibrillation Rate controlled On Eliquis for anticoagulation generalized weakness. Obtained Physical therapy consult Acute kidney injury Creatinine 2.2 today. Lasix on hold. Nephrology following. Diabetes mellitus type 2 Long-acting insulin along with SSI Blood glucose improving Continue Accu-checks Lactic acidosis No symptoms/signs of infection Hypokalemia, resolved. DVT prophylaxis. On Eliquis Obesity Counseled regarding importance of losing weight Full code History Interval history: Less shortness of breath, No chest pain, Generalized weakness improving improved ambulation Hospitalist Physical - Physical exam Narrative exam: Gen appearance: Not in acute distress HEENT: normocephalic, atraumatic Neck: supple, Lungs: Clear to auscultation bilaterally, no crackles or wheezes Heart :S1 and S2 regular, no murmurs, rubs or gallop Abdomen: Soft, Non tender, non distended, bowel sounds present Extremities :no edema, no clubbing or cyanosis Neuro: AAO x 3, no focal neurological signs - Constitutional Vitals: Temp Pulse Resp BP Pulse Ox 97.4 F L 82 22 127/78 98 12/28/16 12:00 12/28/16 17:18 12/28/16 17:19 12/28/16 14:00 12/28/16 17:19 General appearance: Present: no acute distress, obese Results - Labs CBC & Chem 7: 12/28/16 06:04 12/28/16 06:04 Labs: Laboratory Last Values WBC 5.7 K/mm3 (4.5-11.0) 12/28/16 06:04 RBC 4.57 M/mm3 (3.65-5.03) 12/28/16 06:04 Hgb 11.5 gm/dl (10.1-14.3) 12/28/16 06:04 Hct 35.7 % (30.3-42.9) 12/28/16 06:04 MCV 78 fl (79-97) L 12/28/16 06:04 MCH 25 pg (28-32) L 12/28/16 06:04 MCHC 32 % (30-34) 12/28/16 06:04 RDW 17.8 % (13.2-15.2) H 12/28/16 06:04 Plt Count 197 K/mm3 (140-440) 12/28/16 06:04 Lymph % (Auto) Talent Assistant 12/22/16 14:40 Lymph # Talent Assistant 12/22/16 14:40 Add Manual Diff Complete 12/22/16 14:40 Total Counted 100 12/22/16 14:40 Seg Neutrophils % Talent Assistant 12/22/16 14:40 Seg Neuts % (Manual) 39.0 % (40.0-70.0) L 12/22/16 14:40 Band Neutrophils % 0 % 12/22/16 14:40 Lymphocytes % (Manual) 49.0 % (13.4-35.0) H 12/22/16 14:40 Reactive Lymphs % (Man) 0 % 12/22/16 14:40 Monocytes % (Manual) 9.0 % (0.0-7.3) H 12/22/16 14:40 Eosinophils % (Manual) 2.0 % (0.0-4.3) 12/22/16 14:40 Basophils % (Manual) 0 % (0.0-1.8) 12/22/16 14:40 Metamyelocytes % 1.0 % 12/22/16 14:40 Myelocytes % 0 % 12/22/16 14:40 Promyelocytes % 0 % 12/22/16 14:40 Blast Cells % 0 % 12/22/16 14:40 Nucleated RBC % Not Reportable 12/22/16 14:40 Seg Neutrophils # Man 3.5 K/mm3 (1.8-7.7) 12/22/16 14:40 Band Neutrophils # 0.0 K/mm3 12/22/16 14:40 Lymphocytes # (Manual) 4.5 K/mm3 (1.2-5.4) 12/22/16 14:40 Abs React Lymphs (Man) 0.0 K/mm3 12/22/16 14:40 Monocytes # (Manual) 0.8 K/mm3 (0.0-0.8) 12/22/16 14:40 Eosinophils # (Manual) 0.2 K/mm3 (0.0-0.4) 12/22/16 14:40 Basophils # (Manual) 0.0 K/mm3 (0.0-0.1) 12/22/16 14:40 Metamyelocytes # 0.1 K/mm3 12/22/16 14:40 Myelocytes # 0.0 K/mm3 12/22/16 14:40 Promyelocytes # 0.0 K/mm3 12/22/16 14:40 Blast Cells # 0.0 K/mm3 12/22/16 14:40 WBC Morphology Not Reportable 12/22/16 14:40 Hypersegmented Neuts Not Reportable 12/22/16 14:40 Hyposegmented Neuts Not Reportable 12/22/16 14:40 Hypogranular Neuts Not Reportable 12/22/16 14:40 Smudge Cells Not Reportable 12/22/16 14:40 Toxic Granulation Not Reportable 12/22/16 14:40 Toxic Vacuolation Not Reportable 12/22/16 14:40 Dohle Bodies Not Reportable 12/22/16 14:40 Pelger-Huet Anomaly Not Reportable 12/22/16 14:40 Melba Rods Not Reportable 12/22/16 14:40 Platelet Estimate Consistent w auto 12/22/16 14:40 Clumped Platelets Not Reportable 12/22/16 14:40 Plt Clumps, EDTA Not Reportable 12/22/16 14:40 Large Platelets 1+ 12/22/16 14:40 Giant Platelets Not Reportable 12/22/16 14:40 Platelet Satelliting Not Reportable 12/22/16 14:40 Plt Morphology Comment Not Reportable 12/22/16 14:40 RBC Morphology Not Reportable 12/22/16 14:40 Dimorphic RBCs Not Reportable 12/22/16 14:40 Polychromasia Not Reportable 12/22/16 14:40 Hypochromasia 1+ 12/22/16 14:40 Poikilocytosis Not Reportable 12/22/16 14:40 Anisocytosis 1+ 12/22/16 14:40 Microcytosis Not Reportable 12/22/16 14:40 Macrocytosis Not Reportable 12/22/16 14:40 Spherocytes Not Reportable 12/22/16 14:40 Pappenheimer Bodies Not Reportable 12/22/16 14:40 Sickle Cells Not Reportable 12/22/16 14:40 Target Cells Not Reportable 12/22/16 14:40 Tear Drop Cells Not Reportable 12/22/16 14:40 Ovalocytes 1+ 12/22/16 14:40 Helmet Cells Not Reportable 12/22/16 14:40 [place] Bodies Not Reportable 12/22/16 14:40 [place] Rings Not Reportable 12/22/16 14:40 Manly Cells Not Reportable 12/22/16 14:40 Bite Cells Not Reportable 12/22/16 14:40 Crenated Cell Not Reportable 12/22/16 14:40 Elliptocytes Not Reportable 12/22/16 14:40 Acanthocytes (Spur) Not Reportable 12/22/16 14:40 Rouleaux Not Reportable 12/22/16 14:40 Hemoglobin C Crystals Not Reportable 12/22/16 14:40 Schistocytes Not Reportable 12/22/16 14:40 Malaria parasites Not Reportable 12/22/16 14:40 Germain Bodies Not Reportable 12/22/16 14:40 Hem Pathologist Commnt No 12/22/16 14:40 PT 15.0 Sec. (12.2-14.9) H 12/22/16 14:40 INR 1.12 (0.87-1.13) 12/22/16 14:40 APTT 29.5 Sec. (24.2-36.6) 12/22/16 14:40 Thrombin Time 18.4 Sec. (15.1-19.6) 12/22/16 14:40 POC ABG pH 7.449 (7.35-7.45) 12/23/16 04:42 POC ABG pCO2 33.9 (35-45) L 12/23/16 04:42 POC ABG pO2 122 (80-105) H 12/23/16 04:42 POC ABG HCO3 23.5 12/23/16 04:42 POC ABG Total CO2 25 12/23/16 04:42 POC ABG O2 Sat 99 12/23/16 04:42 POC ABG Base Excess -1 12/23/16 04:42 FiO2 50 % 12/23/16 04:42 Sodium 137 mmol/L (137-145) 12/28/16 06:04 Potassium 4.1 mmol/L (3.6-5.0) 12/28/16 06:04 Chloride 97.8 mmol/L (98-107) L 12/28/16 06:04 Carbon Dioxide 25 mmol/L (22-30) 12/28/16 06:04 Anion Gap 18 mmol/L 12/28/16 06:04 BUN 33 mg/dL (7-17) H 12/28/16 06:04 Creatinine 2.2 mg/dL (0.7-1.2) H 12/28/16 06:04 Estimated GFR 27 ml/min 12/28/16 06:04 BUN/Creatinine Ratio 15.00 % 12/28/16 06:04 Glucose 209 mg/dL (65-100) H 12/28/16 06:04 POC Glucose 208 (70-105) H 12/28/16 17:06 Hemoglobin A1c 12.4 % (4-6) H 12/24/16 Unknown Ketones Quantitative Negative (Negative) 12/22/16 14:40 Lactic Acid 2.10 mmol/L (0.7-2.0) H* 12/23/16 03:09 Calcium 8.7 mg/dL (8.4-10.2) 12/28/16 06:04 Total Bilirubin 0.70 mg/dL (0.1-1.2) 12/22/16 14:40 Direct Bilirubin < 0.2 mg/dL (0-0.2) 12/22/16 14:40 Indirect Bilirubin 0.5 mg/dL 12/22/16 14:40 AST 12 units/L (5-40) 12/22/16 14:40 ALT 15 units/L (7-56) 12/22/16 14:40 Alkaline Phosphatase 108 units/L (35-129) 12/22/16 14:40 Total Creatine Kinase 67 units/L (30-135) 12/22/16 14:40 CK-MB (CK-2) 1.3 ng/mL (0.0-4.0) 12/22/16 14:40 CK-MB (CK-2) Rel Index 1.9 (0-4) 12/22/16 14:40 Troponin T < 0.010 ng/mL (0.00-0.029) 12/22/16 14:40 NT-Pro-B Natriuret Pep 1966 pg/mL (0-900) H 12/22/16 14:40 Total Protein 7.3 g/dL (6.3-8.2) 12/22/16 14:40 Albumin 3.7 g/dL (3.9-5) L 12/22/16 14:40 Albumin/Globulin Ratio 1.0 % 12/22/16 14:40 Urine Color Yellow (Yellow) 12/27/16 05:00 Urine Turbidity Cloudy (Clear) 12/27/16 05:00 Urine pH 5.0 (5.0-7.0) 12/27/16 05:00 Ur Specific [place] 1.015 (1.003-1.030) 12/27/16 05:00 Urine Protein 100 mg/dl mg/dL (Negative) 12/27/16 05:00 Urine Glucose (UA) Neg mg/dL (Negative) 12/27/16 05:00 Urine Ketones Neg mg/dL (Negative) 12/27/16 05:00 Urine Blood Neg (Negative) 12/27/16 05:00 Urine Nitrite Neg (Negative) 12/27/16 05:00 Urine Bilirubin Neg (Negative) 12/27/16 05:00 Urine Urobilinogen < 2.0 mg/dL (<2.0) 12/27/16 05:00 Ur Leukocyte Esterase Lg (Negative) 12/27/16 05:00 Urine WBC (Auto) 33.0 /HPF (0.0-6.0) H 12/27/16 05:00 Urine RBC (Auto) 16.0 /HPF (0.0-6.0) 12/27/16 05:00 U Epithel Cells (Auto) 14.0 /HPF (0-13.0) H 12/27/16 05:00 Urine Bacteria (Auto) 2+ /HPF (Negative) 12/27/16 05:00 Urine Mucus Few /HPF 12/27/16 05:00 Urine Yeast (Budding) 2+ /HPF 12/27/16 05:00 Urine Creatinine 174.8 mg/dL (0.1-20.0) H 12/27/16 05:00 Urine Microalbumin 49.1 mg/dL (0.1-34.0) H 12/27/16 05:00 Microalb/Creat Ratio 280.8 ug/mg 12/27/16 05:00 Urine Sodium 16 mEq/L 12/27/16 05:00 Urine Total Protein 93 mg/dL (5-11.8) H 12/27/16 05:00
[2016-12-29] MEDS: LOPRESSOR PO SCH ×3 (01:24→14:16)
[2016-12-29] MEDS: SYNTHROID PO SCH (05:26)
[2016-12-29] MEDS ORDERED: LASIX PO SCH (06:00)
[2016-12-29 07:22] LABS: BUN/Creatinine Ratio 17.61; Calcium 8.9 mg/dL (8.4-10.2); Chloride 100.2 mmol/L (98-107); Potassium 4.1 mmol/L (3.6-5.0)
[2016-12-29] MEDS: REVATIO PO SCH ×2 (08:04→16:58)
[2016-12-29] MEDS: APRESOLINE PO SCH ×2 (08:04→14:13)
[2016-12-29] MEDS: NOVOLOG SUB-Q SCH ×3 (08:04→16:58)
[2016-12-29] MEDS: LEVEMIR SUB-Q SCH (08:05)
[2016-12-29] MEDS: DUONEB *Not for PRN Use IH SCH ×2 (08:35→13:34)
[2016-12-29] MEDS: ELIQUIS PO SCH (09:06)
[2016-12-29] MEDS: celeXA PO SCH (09:06)
[2016-12-29] MEDS: CATAPRES PO SCH (09:06)
[2016-12-29] MEDS: BABY ASPIRIN PO SCH (09:07)
[2016-12-29] MEDS: PEPCID PO SCH (09:07)
--- NOTE | 2016-12-29 11:21 | Discharge Summary ---
Providers - Providers Date of Admission: 12/22/16 17:11 Date of discharge: 12/29/16 Attending physician: BRENDAN FITZPATRICK 12/22/16 17:31 Consult to Physician [CONS] Routine Consulting Provider: YAHIR WOODARD Reason For Exam: respiratory failure, mech vent Place consult to:: cc commercial drone software developer Notified:: jo ann 12/22/16 17:32 Consult to Physician [CONS] Routine Consulting Provider: MARISOL OLIVER Reason For Exam: chf, pt known to you Place consult to:: cardiology Notified:: y Was contact made?: Yes If yes, spoke with:: a/s Time called:: 18:20 12/26/16 11:15 Consult to Physician [CONS] Routine Consulting Provider: LEN NIELSEN Reason For Exam: Acute kidney injury Place consult to:: Dr. Nielsen Notified:: Carlitos RN Phone number called:: Was contact made?: Yes If yes, spoke with:: Nisreenri-Office Time called:: 11:54 12/26/16 12:29 Physical Therapy Evaluation and Treat [CONS] Routine Comment: Reason For Exam: Generalized weakness Primary care physician: SENIOR INSTRUMENTATION ENGINEER Hospitalization Condition: Fair Hospital course: Patient is 71 yo with diabetes, atrial fibrillation, sleep apnea on home CPAP. She was found unresponsive, unconscious in bathroom at home. In ED was hypoxic, had hyperglycemia. She was intubated and admitted to ICU. She was diagnosed with CHF exacerbation. She was evaluated by cardiology, Medicine Tech. She improved and was extubated and transferred to Telemetry. Her Creatinine increased, she developed acute kidney injury therefore Nephrology was consulted. After several days, she was stable and therefore discharged home on 12/29/16 to follow as outpatient. Total time spent on discharge, 35 mins. Disposition: [id number] HOME UNDER HOME HLTH - Discharge Diagnoses (1) Acute respiratory failure requiring reintubation Status: Acute (2) Acute kidney injury Status: Acute (3) Acute on chronic systolic CHF (congestive heart failure) Status: Acute (4) Atrial fibrillation with rapid ventricular response Status: Acute (5) Hypertensive urgency Status: Acute (6) Diabetes mellitus type 2, uncontrolled Status: Acute Qualifiers: Diabetes mellitus complication status: with hyperglycemia Diabetes mellitus complication detail: D Diabetic retinopathy severity: D Proliferative retinopathy type: P Diabetes mellitus macular edema: D Diabetes mellitus usp insulin use: D Laterality: L Chronic kidney disease stage: C (7) Diabetes mellitus type 2, uncontrolled Status: Acute Qualifiers: Diabetes mellitus complication status: D Diabetes mellitus complication detail: D Diabetic retinopathy severity: D Proliferative retinopathy type: P Diabetes mellitus macular edema: D Diabetes mellitus usp insulin use : D Laterality: L Chronic kidney disease stage: C (8) Lactic acidosis Status: Acute Core Measure Documentation - Palliative Care Palliative Care/ Comfort Measures: Not Applicable - Core Measures Any of the following diagnoses?: heart failure - Heart Failure Discharge Requirements KENNETH/ARB for LVSD if EF <40%: No Reason for no KENNETH/ARB: Renal impairment Beta rommel at discharge: Yes Exam - Constitutional Vitals: Temp Pulse Resp BP Pulse Ox 98.4 F 92 H 20 178/88 99 12/29/16 07:40 12/29/16 09:06 12/29/16 08:45 12/29/16 09:06 12/29/16 08:35 Plan Activity: advance as tolerated Diet: low fat, low cholesterol, low salt Special Instructions: physical therapy, home health RN Additional Instructions: 1.Follow up with PCP in 1 week. 2.Follow up with Dr. Oliver in 1 week. 3.Follow up with Dr. Nogueira, nephrology in 1 week. 4.BMP on monday01/03/17, to be followed by PCP Follow up with: PRIMARY CAREMD [Primary Care Provider] - 3-5 Days Prescriptions: Ciprofloxacin HCl [Ciprofloxacin TAB] 250 mg PO BID #8 tablet Famotidine [Pepcid] 20 mg PO BID #60 tablet Metoprolol [Lopressor TAB] 25 mg PO Q6H #120 tablet
--- NOTE | 2016-12-29 11:41 | Progress Note ---
Assessment and Plan - Patient Problems (1) Acute kidney injury Current Visit: Yes Status: Acute Plan to address problem: acute kidney injury is due to pre-renal azotemia in the setting of IV diuresis and acute cardiorenal syndrome. Improved respiratory status noted. stable renal function with Cr around 2.1 - 2.2mg/dl supportive care for CLAUDIO avoid nephrotoxins, NSAIDs IV contrast. Stable for discharge from renal stand point with outpatient F/u (2) Atrial fibrillation Current Visit: Yes Status: Acute Qualifiers: Atrial fibrillation type: chronic Qualified Code(s): I48.2 - Chronic atrial fibrillation Plan to address problem: rate control as per cardiology (3) Congestive heart failure Current Visit: Yes Status: Acute Qualifiers: Congestive heart failure type: combined Congestive heart failure chronicity : acute on chronic Qualified Code(s): I50.43 - Acute on chronic combined systolic (congestive) and diastolic (congestive) heart failure Plan to address problem: FeNA 0.14%. Given persistent fluid overload, increasing weight, increased lasix to 80mg po bid. To add metolazone if fluid status does not improve. rate control as per cardio, on metoprolol. hold KENNETH-I/ARB until eGFR is in steady state. strict I/Os, fluid restriction to 1.5L /day (4) Uncontrolled hypertension Current Visit: Yes Status: Acute Plan to address problem: monitor BP on current meds (5) Obstructive sleep apnea Current Visit: Yes Status: Acute Plan to address problem: cont CPAP, bronchodilator therapy as per pulmonary consult (6) Altered mental status Current Visit: Yes Status: Acute Qualifiers: Altered mental status type: delirium Coma depth: C Coma timing: C Qualified Code(s): R41.0 - Disorientation, unspecified Plan to address problem: improved mental status Subjective Date of service: 12/29/16 Principal diagnosis: AMS,chf denia, hypercapnic respiratory failure episode Interval history: pt awake, alert, reports improved breathing. Objective - Vital Signs Vital signs: Vital Signs - 12hr 12/29/16 12/29/16 12/29/16 00:00 04:00 07:40 Temperature 98.0 F 98.3 F 98.4 F Pulse Rate 87 94 H 89 Pulse Rate [ Anterior Bilateral Throughout] Respiratory 18 18 16 Rate Respiratory Rate [Anterior Bilateral Throughout] Blood Pressure 125/82 165/83 172/88 O2 Sat by Pulse 98 100 91 Oximetry 08/24/17 08/24/17 08/24/17 08:09 08:35 08:45 Temperature Pulse Rate 92 H Pulse Rate [ 77 85 Anterior Bilateral Throughout] Respiratory Rate Respiratory 18 20 Rate [Anterior Bilateral Throughout] Blood Pressure 178/88 O2 Sat by Pulse 99 Oximetry 12/29/16 09:06 Temperature Pulse Rate 92 H Pulse Rate [ Anterior Bilateral Throughout] Respiratory Rate Respiratory Rate [Anterior Bilateral Throughout] Blood Pressure 178/88 O2 Sat by Pulse Oximetry - General Appearance General appearance: well-developed, well-nourished, appears stated age, obese EENT: ATNC, PERRL, mucous membranes moist Neck: no JVD Respiratory: Present: Clear to Ascultation Cardiology: regular, S1S2 Gastrointestinal: normoactive bowel sounds, obese Integumentary: no rash, other (1+ edema b/l LE ) Neurologic: no focal deficit, alert and oriented x3, strength 5/5, CN 3-12 intact Psychiatric: mood/affect appropriate, cooperative - Lab 12/28/16 06:04 12/29/16 06:46 Most recent lab results Calcium 8.9 mg/dL (8.4-10.2) 12/29/16 06:46 Urine Creatinine 174.8 mg/dL (0.1-20.0) H 12/27/16 05:00 Urine Sodium 16 mEq/L 12/27/16 05:00 Urine Total Protein 93 mg/dL (5-11.8) H 12/27/16 05:00
--- NOTE | 2016-12-29 11:47 | Progress Note ---
Assessment and Plan Acute respiratory failure Altered mental status, resolved no acute intracranial process on head CT Lactic acidosis Acute renal failure Diabetes mellitus Sleep apnea Hypertension Persistent Afib on eliquis at home for anticoagulation on metoprolol for rate control CHF, diastolic EF 45-50% on echo 04/2016 no reversible ischemia on MPI 12/2015 Pulmonary HTN Recommendations: Continue medical therapy for atrial fibrillation and mild cardiomyopathy. Conservative cardiac management. Subjective Date of service: 12/29/16 Principal diagnosis: AMS,chf denia, hypercapnic respiratory failure episode Interval history: No interval changes. Objective Vital Signs Temp Pulse Pulse Resp Resp BP Pulse Ox 12/29/16 09:06 92 H 178/88 12/29/16 08:45 85 20 12/29/16 08:35 77 18 99 12/29/16 08:09 92 H 178/88 12/29/16 07:40 98.4 F 89 16 172/88 91 12/29/16 04:00 98.3 F 94 H 18 165/83 100 12/29/16 00:00 98.0 F 87 18 125/82 98 12/28/16 20:00 98.1 F 94 H 18 141/82 94 12/28/16 17:19 22 98 12/28/16 17:18 82 12/28/16 16:30 98.0 F 98 H 18 132/87 98 12/28/16 16:15 92 H 18 12/28/16 16:04 78 20 12/28/16 14:00 78 127/78 12/28/16 12:00 97.4 F L 107 H 20 167/84 94 - Physical Examination General: No Apparent Distress HEENT: Positive: PERRL Cardiac: Positive: irregularly irregular Neuro: Positive: Grossly Intact - Labs and Meds Comprehensive Metabolic Panel 12/29/16 Range/Units 06:46 Sodium 139 (137-145) mmol/L Potassium 4.1 (3.6-5.0) mmol/L Chloride 100.2 (98-107) mmol/L Carbon Dioxide 23 (22-30) mmol/L BUN 37 H (7-17) mg/dL Creatinine 2.1 H (0.7-1.2) mg/dL Glucose 182 H (65-100) mg/dL Calcium 8.9 (8.4-10.2) mg/dL - Imaging and Cardiology EKG: report reviewed
[2016-12-29 16:48] VITALS: BP 134/78
== END 2016-12-29 18:07 | disposition home health service (06) | DRG 208 ==
LOC: ED 14:38 → CC1 17:11 → 4A 12-24 13:51
PROVIDERS: ADMIT Internal Medicine; ATTEND Internal Medicine
PROC: 5A1935Z Respiratory Ventilation, Less than 24 Consecutive Hours (ICD-10-PCS; principal; 2016-12-22)
PROC: 0BH17EZ Insertion of Endotracheal Airway into Trachea, Via Natural or Artificial Opening (ICD-10-PCS; 2016-12-22)
PROC: 5A09457 Assistance with Respiratory Ventilation, 24-96 Consecutive Hours, Continuous Positive Airway Pressure (ICD-10-PCS; 2016-12-22)
PROC: 4A033R1 Measurement of Arterial Saturation, Peripheral, Percutaneous Approach (ICD-10-PCS; 2016-12-22)
DX: J96.01 Acute respiratory failure with hypoxia (principal); G93.41 Metabolic encephalopathy; I50.43 Acute on chronic combined systolic (congestive) and diastolic (congestive) heart failure; E11.01 Type 2 diabetes mellitus with hyperosmolarity with coma; I48.1 Persistent atrial fibrillation; E87.2 Acidosis; N17.9 Acute kidney failure, unspecified; I11.0 Hypertensive heart disease with heart failure; G47.33 Obstructive sleep apnea (adult) (pediatric); I27.2 Other secondary pulmonary hypertension; I25.10 Atherosclerotic heart disease of native coronary artery without angina pectoris; E87.6 Hypokalemia; E66.9 Obesity, unspecified; K21.9 Gastro-esophageal reflux disease without esophagitis; I48.2 Chronic atrial fibrillation; I16.0 Hypertensive urgency; Z88.6 Allergy status to analgesic agent; Z86.73 Personal history of transient ischemic attack (TIA), and cerebral infarction without residual deficits; Z90.710 Acquired absence of both cervix and uterus; Z82.49 Family history of ischemic heart disease and other diseases of the circulatory system; Z68.38 Body mass index [BMI] 38.0-38.9, adult; Z71.3 Dietary counseling and surveillance; Z79.4 Long term (current) use of insulin
CPT/HCPCS: 36415; 36600; 70450; 71010; 74000; 80048; 80074; 81001; 82010; 82043; 82140; 82550; 82553; 82803; 82962; 83036; 83880; 84156; 84300; 84484; 85007; 85025; 85027; 85610; 85670; 85730; 87040; 87070; 87086; 87205; 93005; 93010; 94002; 94003; 94640; 94660; 94760; 99292; A9270-GY; G8978-GP; G8979-GP; J0330; J1815; J1818; J1940; J1956; J2060; J2250; J2543; J2704; J3370; J3480; J7030; J7040

== ENCOUNTER 2017-06-09 02:11 | Inpatient (IN) | payer MEDICARE ==
[2017-06-09] MEDS ORDERED: SODIUM BICARBONATE IV ONE ×3 (02:50→06:49)
[2017-06-09] MEDS ORDERED: TYLENOL PO PRN (02:55)
[2017-06-09] MEDS ORDERED: ZOFRAN IV PRN (02:55)
[2017-06-09] MEDS ORDERED: ADRENALIN 8 MG in NACL 0.9% 250ML 242 ML IV SCH (03:00)
[2017-06-09] MEDS ORDERED: SODIUM BICARBONATE 150 MEQ in D5W 1,000 ML IV SCH (03:00)
[2017-06-09] MEDS: Vasostrict 20 UNIT in NACL 0.9% 100 ML IV SCH ×3 (03:00→23:15)
--- NOTE | 2017-06-09 03:00 | History and Physical Report ---
History of Present Illness Date of examination: 06/09/17 Date of admission: 06/09/17 02:11 History of present illness: 71-year-old woman with a history of hypertension, diabetes, A. fib, CHF, CVA, hypothyroidism was admitted to the hospital for small bowel obstruction and is status post lysis of adhesion. Her hospital course was complicated, she developed sepsis secondary to pneumonia, urinary tract infection. Patient has respiratory failure and has a trach collar. She was discharged to LTAC yesterday. Nursing from LTAC report that the patient belly got distended last night. She subsequently underwent cardiac arrest, she was coded 4 times, 3 times on LTAC and once upon transfer to the ICU. Patient responded to one round of epinephrine in the ICU, her blood pressure is stable currently. I try to obtain a CAT scan of the abdomen and pelvis but she became more unstable, her heart rate dropped into the 30s, also she became hypotensive. Will hold off on CAT scan of the abdomen and pelvis with now. Review of systems is unobtainable PAST MEDICAL HISTORY:hypertension, diabetes, A. fib, CHF, CVA, hypothyroidism PAST SURGICAL HISTORY: Lysis of adhesion, appendectomy FAMILY HISTORY: Hypertension SOCIAL HISTORY: Unknown alcohol, tobacco, drugs Medications and Allergies Allergies Allergy/AdvReac Type Severity Reaction Status Date / Time codeine Allergy Vomiting Verified 05/05/17 07:22 Home Medications Medication Instructions Recorded Confirmed Last Taken Type Albuterol Sulfate [Ventolin HFA] 2 puff IH QID PRN 12/11/15 05/05/17 1 Week Ago History ~04/18/16 8 Apixaban [Eliquis] 5 mg PO BID 12/11/15 05/05/17 1 Day Ago History ~04/24/16 5 cloNIDine [Catapres] 0.1 mg PO TID 12/11/15 05/05/17 1 Day Ago History ~04/24/16 0.1 hydrALAZINE [Apresoline TAB] 100 mg PO TID 12/11/15 05/05/17 1 Day Ago History ~04/24/16 100 Furosemide [Lasix TAB] 80 mg PO QDAY 12/23/16 05/05/17 Unknown History Aspirin [Lo-Dose Aspirin EC] 81 mg PO QDAY 05/05/17 05/05/17 Unknown History Carvedilol [Coreg] 37.5 mg PO BID 05/05/17 05/05/17 Unknown History Cholecalciferol (Vitamin D3) 1,000 unit PO DAILY 05/05/17 05/05/17 Unknown History [Vitamin D3] Levothyroxine [Synthroid] 100 mcg PO QAM 05/05/17 05/05/17 Unknown History Lisinopril [Zestril TAB] 2.5 mg PO QDAY 05/05/17 05/05/17 Unknown History Potassium Chloride [K-Dur] 20 meq PO QDAY 05/05/17 05/05/17 Unknown History Sildenafil [Revatio] 20 mg PO TID 05/05/17 05/05/17 Unknown History Slow Fe 1 tab PO QDAY 05/05/17 05/05/17 Unknown History Active Meds: Active Medications Acetaminophen (Tylenol) 650 mg PO Q4H PRN PRN Reason: Pain MILD(1-3)/Fever >100.5/HUBBARD Enoxaparin Sodium (Lovenox) 30 mg SUB-Q QDAY ALETHA Sodium Bicarbonate 150 meq/ (Dextrose) 1,150 mls @ 50 mls/hr IV DIRECT ALETHA Ondansetron HCl (Zofran) 4 mg IV Q8H PRN PRN Reason: N/V unrelieved by Reglan Sodium Bicarbonate (Sodium Bicarbonate) 100 meq IV ONCE ONE Stop: 06/09/17 02:59 Exam - Physical Exam Narrative exam: Gen. appearance: Patient lying in bed in no acute distress HEENT: Normocephalic/atraumatic, pupils equal round reactive to light, unable to do occular movement intact, no scleral icterus, no JVD or thyromegaly or nodule, neck is supple, mucous membrane moist, unable to examine oral cavity Heart: S1-S2, regular rate and rhythm Lungs: Clear to auscultation bilateral breathing comfortable Abdomen: Decreased bowel sounds, distended, +peg Extremities: No edema, cyanosis, clubbing Neuro:: Sedated Skin: No rash, nodules, warm dry Results - Labs CBC & Chem 7: 06/10/17 05:00 06/10/17 05:00 Assessment and Plan Assessment Cardiac arrest Abdominal distention Chronic respiratory failure Suspect septic shock A. fib CHF, stable Diabetes type 2 History of CVA Hypothyroidism Plan Admit to medicine Hold off on CAT scan of the abdomen and pelvis now, patient with stable Consult surgery, check lactate Check cardiac enzymes, consult cardiology, critical care Start IV Zosyn and vancomycin, bicarbonate drip, epinephrine drip Check fingersticks and initiate insulin sliding scale DVT prophylaxis, check labs now Unable to reach family, condition critical Tried to reach the surgeon without success CCT 50 minutes The high probability of a clinically significant sudden or life-threatening deterioration of the [cardiac, respiratory, renal] system(s) required my full and direct attention, intervention and personal management. The aggregate critical care time was [ 40 ] minutes. This time is in addition to the time spent performing reported procedures but including [ X] Data review and interpretation [ X] Patient assessment and monitoring of vital signs [ X ] Documentation [X] Medication orders and management Addendum Code #5 PAtient is on 4 pressors that are maxed out Chest compressions initiated, there was ROSC Please follow labs
[2017-06-09] MEDS ORDERED: INTROPIN DRIP 800 MG/D5W 250 ML 800 MG/250 ML BAG IV SCH (04:00)
[2017-06-09] MEDS ORDERED: VANCOMYCIN VIAL 500 MG in NACL 0.9% 100 ML IV ONE (04:02)
[2017-06-09] MEDS ORDERED: LEVOPHED DRIP 4 MG/NS 250 ML 4 MG/250 ML BAG IV ONE ×2 (04:22)
[2017-06-09] MEDS ORDERED: VANCOMYCIN 2,000 MG in NACL 0.9% 500 ML 500 ML IV ONE (04:30)
[2017-06-09] MEDS ORDERED: NACL 0.9% 1000 ML IV STA (04:35)
[2017-06-09] MEDS ORDERED: VANCOMYCIN PHARMACY TO DOSE IV SCH (05:00)
[2017-06-09] MEDS ORDERED: ADRENALIN ONE (06:49)
[2017-06-09] MEDS: ADRENALIN 8 MG in NACL 0.9% 250ML 242 ML IV SCH (07:00)
--- NOTE | 2017-06-09 09:43 | Progress Note ---
Assessment and Plan Assessment and plan: --Cardio respiratory arrest/status post CPR Cardiorespiratory arrest 4, status post CPR, continue ventilatory support, nebulizers, pulmonary following --Possible Anoxic encephalopathy; supportive care, neuro evaluation --Acute on chronic respiratory failure; continue vent support, nebulizers and antibiotics --Lactic acidosis; secondary to underlying sepsis, continue antibiotics, IV fluids, follow cultures --Septic shock; continue multiple pressors, IV antibiotics, cultures, ID evaluation --Abdominal distention; recent history of laparoscopic surgery, surgery consulted --Small bowel obstruction status post recent laparoscopic lysis admission, laparoscopic PEG placement --Atrial fibrillation;HR in 120s, management per cardiology, resume beta blockers as needed Not a candidate for chronic anticoagulation at this point, defer to cardiology --History of hypothyroidism, resume Synthroid IV --DVT prophylaxis; SCDs Very poor prognosis Discussed in detail with the sister and brother at the bedside, verbalized understanding Request full CODE STATUS at this point Critical care time 35 minutes History Interval history: Patient seen and evaluated in ICU medical records reviewed Last night events in LTAC as well as in ICU are noted As per night covering hospitalist Dr. Renu Hunt's note 71-year-old female patient was transferred to LTAC yesterday from ICU and last night patient had cardiac arrest and coded 3 times in LTAC status post CPR Patient was transferred to ICU where she coded the fourth time, hypotensive on multiple pressors Family members sister Ms Alicia and Brother Jacey Kong at the bedside Patient is intubated via trach tube, unresponsive, hypotensive on multiple pressors Vital signs reviewed Hospitalist Physical - Constitutional Vitals: Temp Pulse Resp BP Pulse Ox 128 H 24 181/85 100 06/09/17 08:11 06/09/17 08:10 06/09/17 08:11 06/09/17 08:11 General appearance: Present: mild distress, other (intubated via trach on ventilator) - EENT Eyes: Present: PERRL - Neck Neck: Present: supple, other (tracheostomy) - Respiratory Respiratory effort: normal Respiratory: bilateral: diminished, rhonchi, negative: rales, wheezing - Cardiovascular Rhythm: regular Heart Sounds: Present: S1 & S2 (tachycardia) - Extremities Extremities: no ischemia Extremity abnormal: edema - Abdominal General gastrointestinal: soft, distended, absent bowel sounds - Integumentary Integumentary: Present: clear, warm - Psychiatric Psychiatric: other (unresponsive) - Neurologic Neurologic: other (unresponsive) Results - Labs Labs: Laboratory Last Values POC Glucose 181 (70-105) H 06/09/17 03:31 Lactic Acid 13.10 mmol/L (0.7-2.0) H* 06/09/17 05:15 Total Creatine Kinase 62 units/L (30-135) 06/09/17 04:15 CK-MB (CK-2) 3.0 ng/mL (0.0-4.0) 06/09/17 04:15 CK-MB (CK-2) Rel Index 4.8 (0-4) H 06/09/17 04:15 Troponin T 0.108 ng/mL (0.00-0.029) H* 06/09/17 04:15 Triglycerides 126 mg/dL (2-149) 06/09/17 04:15 Cholesterol 116 mg/dL (50-199) 06/09/17 04:15 LDL Cholesterol Direct 62 mg/dL (50-130) 06/09/17 04:15 HDL Cholesterol 29 mg/dL (40-59) L 06/09/17 04:15 Cholesterol/HDL Ratio 4.00 % 06/09/17 04:15
[2017-06-09] MEDS ORDERED: LOVENOX SUB-Q SCH (10:00)
[2017-06-09] MEDS: LEVOPHED DRIP 4 MG/NS 250 ML 4 MG/250 ML BAG IV SCH ×3 (10:00→20:01)
[2017-06-09] MEDS: ZOSYN/NS 2.25 GM/50ML 2.25 GM/50 ML BAG IV SCH ×3 (10:51→20:00)
[2017-06-09] MEDS ORDERED: HEPARIN IV PRN (11:00)
--- NOTE | 2017-06-09 11:36 | Consultation ---
History of Present Illness Consult date: 06/09/17 Consult reason: cardiac arrest History of present illness: 71-year-old woman with a history of hypertension, diabetes, A. fib, CHF, CVA, hypothyroidism was admitted to the hospital for DKA and acute respiratory failure Her hospital course was complicated, she developed acute renal failure requiring HD, failure to wean off the vent s/p trach and PEG, bowel obstruction s/p lysis of adhesions. She was discharged to LTAC yesterday. Nursing from LTAC report that the patient belly got distended last night. She subsequently underwent cardiac arrest, she was coded 4 times, 3 times on LTAC and once upon transfer to the ICU. Patient responded to one round of epinephrine in the ICU. Her pH is 7.1 and lactic acid level is 13. Patient on multiple pressors ( dopamine, levophed, epinephrine, vasopressin). She has permanent atrial fibrillation. Past History Past Medical History: atrial fib, COPD, diabetes, ESRD, heart failure, hypertension, renal failure, other (Pulmonary hypertension, cor pulmonale) Past Surgical History: Other (exploratory laparotomy and lysis of adhesions, tach, PEG) Social history: no significant social history Family history: no significant family history Medications and Allergies Allergies Allergy/AdvReac Type Severity Reaction Status Date / Time codeine Allergy Vomiting Verified 05/05/17 07:22 Home Medications Medication Instructions Recorded Confirmed Last Taken Type Albuterol Sulfate [Ventolin HFA] 2 puff IH QID PRN 12/11/15 05/05/17 1 Week Ago History ~04/18/16 8 Apixaban [Eliquis] 5 mg PO BID 12/11/15 05/05/17 1 Day Ago History ~04/24/16 5 cloNIDine [Catapres] 0.1 mg PO TID 12/11/15 05/05/17 1 Day Ago History ~04/24/16 0.1 hydrALAZINE [Apresoline TAB] 100 mg PO TID 12/11/15 05/05/17 1 Day Ago History ~04/24/16 100 Furosemide [Lasix TAB] 80 mg PO QDAY 12/23/16 05/05/17 Unknown History Aspirin [Lo-Dose Aspirin EC] 81 mg PO QDAY 05/05/17 05/05/17 Unknown History Carvedilol [Coreg] 37.5 mg PO BID 05/05/17 05/05/17 Unknown History Cholecalciferol (Vitamin D3) 1,000 unit PO DAILY 05/05/17 05/05/17 Unknown History [Vitamin D3] Levothyroxine [Synthroid] 100 mcg PO QAM 05/05/17 05/05/17 Unknown History Lisinopril [Zestril TAB] 2.5 mg PO QDAY 05/05/17 05/05/17 Unknown History Potassium Chloride [K-Dur] 20 meq PO QDAY 05/05/17 05/05/17 Unknown History Sildenafil [Revatio] 20 mg PO TID 05/05/17 05/05/17 Unknown History Slow Fe 1 tab PO QDAY 05/05/17 05/05/17 Unknown History Active Meds: Active Medications Acetaminophen (Tylenol) 650 mg PO Q4H PRN PRN Reason: Pain MILD(1-3)/Fever >100.5/HUBBARD Enoxaparin Sodium (Lovenox) 30 mg SUB-Q QDAY ALETHA Heparin Sodium (Porcine) (Heparin) 5,000 unit IV YADIRA PRN PRN Reason: hep dwell Sodium Bicarbonate 150 meq/ (Dextrose) 1,150 mls @ 50 mls/hr IV DIRECT ALETHA Last Admin: 06/09/17 03:00 Dose: 50 mls/hr Vasopressin 20 unit/ Sodium (Chloride) 101 mls @ 9.09 mls/hr IV TITR ALETHA; 0.03 UNITS/MIN PRN Reason: Protocol Last Admin: 06/09/17 10:49 Dose: 0.03 units/min, 9.09 mls/hr Epinephrine 8 mg/ Sodium (Chloride) 250 mls @ 3.75 mls/hr IV TITR ALETHA; 2 MCG/ MIN PRN Reason: Protocol Last Admin: 06/09/17 07:00 Dose: 4 mcg/min, 7.5 mls/hr Piperacillin Sod/Tazobactam Sod (Zosyn/Ns 2.25 Gm/50ml) 2.25 gm in 50 mls @ 100 mls/hr IV Q8H ALETHA Last Admin: 06/09/17 10:51 Dose: Not Given Dopamine HCl/Dextrose (Intropin Drip 800 Mg/D5w 250 Ml) 800 mg in 250 mls @ 4.376 mls/hr IV TITR ALETHA; 2 MCG/KG/MIN PRN Reason: Protocol Last Titration: 06/09/17 10:38 Dose: 10 mcg/kg/min, 21.881 mls/hr Norepinephrine (Levophed Drip 4 Mg/Ns 250 Ml) 4 mg in 250 mls @ 7.5 mls/hr IV TITR ONE; 2 MCG/MIN PRN Reason: Protocol Stop: 06/10/17 13:41 Last Titration: 06/09/17 09:04 Dose: 20 mcg/min, 75 mls/hr Ondansetron HCl (Zofran) 4 mg IV Q8H PRN PRN Reason: N/V unrelieved by Kayla Vancomycin HCl (Vancomycin Pharmacy To Dose) 1 each IV PKCONSULT ALETHA PRN Reason: Protocol Review of Systems ROS unobtainable: due to endotracheal tube, due to mental status Physical Examination Vital Signs Pulse Resp 145 H 18 06/09/17 02:14 06/09/17 02:14 General appearance: other (Mechanically ventilated, unresponsive) Cardiac: Positive: irregularly irregular, Tachycardia Lungs: Positive: Ventilated Respirations Abdomen: Positive: Firm, Distended Results Cardiac Enzymes 06/09/17 Range/Units 04:15 CK-MB (CK-2) 3.0 (0.0-4.0) ng/mL Lipids 06/09/17 Range/Units 04:15 Triglycerides 126 (2-149) mg/dL Cholesterol 116 (50-199) mg/dL HDL Cholesterol 29 L (40-59) mg/dL Cholesterol/HDL Ratio 4.00 % EKG interpretations - Telemetry EKG Rhythm: Atrial Fibrillation Assessment and Plan Cardiac arrest x 4 Junctional rhythm , bradycardia reported (no strips available) Abdominal distention Elevated lactic acid Metablic acidosis Partial SBO s/p diagnostic laparoscopy, lysis of adhesions, and PEG placement Acute respiratory failure on mechanical ventilation via trach Acute renal failure requiring HD Persistent Afib on eliquis at home for anticoagulation; currently off anticoagulation due to drop in H/H Rate uncontrolled in shock state and on multiple pressors and beta agonists CHF, systolic EF 45-50% on echo 04/2016. Echocardiogram this admission shows a dilated left ventricle with an left ventricular ejection fraction 30-35%. In addition, there is evidence of cor pulmonale with severe dilatation of the right heart chambers, moderate to severe tricuspid regurgitation and severe pulmonary hypertension. no reversible ischemia on MPI 12/2015 Type II DM Recommendations: Prognosis is grave No new cardiac recommendations Discussed with family at bedside
--- NOTE | 2017-06-09 11:49 | Progress Note ---
Assessment and Plan - Patient Problems (1) Partial small bowel obstruction Current Visit: No Status: Acute Plan to address problem: s/p dx lap, lysis of adhesions, PEG placement. POD#4 - Most of the distention was an air filled stomach. This immediately resolved once I reconnected the PEG to suction. No concerning drainage came out - it was all air. I doubt there is a new issue in the abdomen to cause the cardiac arrest. She was able to tolerate more distention in the OR when we insufflated her abdomen for surgery. It doubt it would be useful to do a CT as there will be free air and free fluid from the recent laparoscopic surgery. Would just keep the PEG on LIS for now. Please call with questions. Subjective Date of service: 06/09/17 Patient Reports: Positive: other (Pt unresponsive. Reviewed records and discussed case with staff. ) Objective Vital Signs - 12hr 06/09/17 06/09/17 06/09/17 02:14 02:17 02:20 Pulse Rate 145 H 120 H 126 H Respiratory 18 12 Rate Blood Pressure 95/66 O2 Sat by Pulse 85 Oximetry O2 Sat by Pulse Oximetry [ Assessment] 06/09/17 06/09/17 06/09/17 02:30 02:40 02:50 Pulse Rate 50 L 138 H 52 L Respiratory 12 16 24 Rate Blood Pressure 95/66 145/63 145/63 O2 Sat by Pulse 99 87 Oximetry O2 Sat by Pulse Oximetry [ Assessment] 06/09/17 06/09/17 06/09/17 03:00 03:10 03:20 Pulse Rate 157 H 156 H 73 Respiratory 24 24 24 Rate Blood Pressure 145/63 128/73 68/40 O2 Sat by Pulse 95 100 97 Oximetry O2 Sat by Pulse Oximetry [ Assessment] 06/09/17 06/09/17 06/09/17 03:30 03:40 03:50 Pulse Rate 170 H 58 L 47 L Respiratory 24 24 24 Rate Blood Pressure 43/25 43/25 53/28 O2 Sat by Pulse 100 82 L Oximetry O2 Sat by Pulse Oximetry [ Assessment] 06/09/17 06/09/17 06/09/17 04:00 04:07 04:10 Pulse Rate 54 L 52 L 49 L Respiratory 27 H 22 Rate Blood Pressure 53/28 53/28 75/36 O2 Sat by Pulse Oximetry O2 Sat by Pulse Oximetry [ Assessment] 06/09/17 06/09/17 06/09/17 04:20 04:30 04:40 Pulse Rate 39 L 31 L 131 H Respiratory 24 18 22 Rate Blood Pressure 75/36 75/36 75/36 O2 Sat by Pulse 99 Oximetry O2 Sat by Pulse Oximetry [ Assessment] 06/09/17 06/09/17 06/09/17 04:50 05:00 05:10 Pulse Rate 130 H 135 H 122 H Respiratory 24 24 24 Rate Blood Pressure 188/80 168/74 158/74 O2 Sat by Pulse 100 100 100 Oximetry O2 Sat by Pulse Oximetry [ Assessment] 06/09/17 06/09/17 06/09/17 05:20 05:30 05:40 Pulse Rate 115 H 139 H 116 H Respiratory 24 24 24 Rate Blood Pressure 152/65 156/69 148/63 O2 Sat by Pulse 100 100 100 Oximetry O2 Sat by Pulse Oximetry [ Assessment] 06/09/17 06/09/17 06/09/17 05:50 06:00 06:10 Pulse Rate 116 H 115 H 121 H Respiratory 24 24 24 Rate Blood Pressure 153/54 174/71 157/65 O2 Sat by Pulse 100 100 100 Oximetry O2 Sat by Pulse Oximetry [ Assessment] 06/09/17 06/09/17 06/09/17 06:20 06:30 06:40 Pulse Rate 110 H 115 H 116 H Respiratory 24 24 24 Rate Blood Pressure 156/59 163/70 168/57 O2 Sat by Pulse 100 100 100 Oximetry O2 Sat by Pulse Oximetry [ Assessment] 06/09/17 06/09/17 06/09/17 06:50 07:00 07:10 Pulse Rate 107 H 99 H 122 H Respiratory 24 24 24 Rate Blood Pressure 142/78 67/43 178/74 O2 Sat by Pulse 100 100 100 Oximetry O2 Sat by Pulse Oximetry [ Assessment] 06/09/17 06/09/17 06/09/17 07:20 07:30 07:40 Pulse Rate 129 H 109 H 116 H Respiratory 24 9 L 24 Rate Blood Pressure 161/54 181/85 155/81 O2 Sat by Pulse 100 100 100 Oximetry O2 Sat by Pulse Oximetry [ Assessment] 06/09/17 06/09/17 06/09/17 07:50 08:00 08:10 Pulse Rate 117 H 111 H 120 H Respiratory 24 18 24 Rate Blood Pressure 155/81 155/81 155/81 O2 Sat by Pulse 100 100 100 Oximetry O2 Sat by Pulse Oximetry [ Assessment] 06/09/17 06/09/17 06/09/17 08:11 10:03 11:07 Pulse Rate 128 H 115 H Respiratory Rate Blood Pressure 181/85 112/58 O2 Sat by Pulse 100 98 Oximetry O2 Sat by Pulse 99 Oximetry [ Assessment] - General physical appearance well developed, well nourished, obese, other (unresponsive. ) - Neck deviated trachea (baseline) - Respiratory normal expansion - Abdomen soft, bowel sounds hypoactive, distended (PEG was clamped. Once reconnected to suction, the abdomen deflated to about 1/2 the size. ), not rigid, surgical scars (C/D/I) - Integumentary no rash, no growths, no abnormal pigmentation - Neurologic other (unresponsive) - Labs Diabetes panel 06/09/17 Range/Units 04:15 Triglycerides 126 (2-149) mg/dL HDL Cholesterol 29 L (40-59) mg/dL
--- NOTE | 2017-06-09 12:25 | Consultation ---
History of Present Illness Consult date: 06/09/17 Past History Past Medical History: atrial fib, COPD, diabetes, ESRD, heart failure, hypertension, renal failure, other (Pulmonary hypertension, cor pulmonale) Past Surgical History: Other (exploratory laparotomy and lysis of adhesions, tach, PEG) Social history: no significant social history Family history: no significant family history Medications and Allergies Allergies Allergy/AdvReac Type Severity Reaction Status Date / Time codeine Allergy Vomiting Verified 05/05/17 07:22 Home Medications Medication Instructions Recorded Confirmed Last Taken Type Albuterol Sulfate [Ventolin HFA] 2 puff IH QID PRN 12/11/15 05/05/17 1 Week Ago History ~04/18/16 8 Apixaban [Eliquis] 5 mg PO BID 12/11/15 05/05/17 1 Day Ago History ~04/24/16 5 cloNIDine [Catapres] 0.1 mg PO TID 12/11/15 05/05/17 1 Day Ago History ~04/24/16 0.1 hydrALAZINE [Apresoline TAB] 100 mg PO TID 12/11/15 05/05/17 1 Day Ago History ~04/24/16 100 Furosemide [Lasix TAB] 80 mg PO QDAY 12/23/16 05/05/17 Unknown History Aspirin [Lo-Dose Aspirin EC] 81 mg PO QDAY 05/05/17 05/05/17 Unknown History Carvedilol [Coreg] 37.5 mg PO BID 05/05/17 05/05/17 Unknown History Cholecalciferol (Vitamin D3) 1,000 unit PO DAILY 05/05/17 05/05/17 Unknown History [Vitamin D3] Levothyroxine [Synthroid] 100 mcg PO QAM 05/05/17 05/05/17 Unknown History Lisinopril [Zestril TAB] 2.5 mg PO QDAY 05/05/17 05/05/17 Unknown History Potassium Chloride [K-Dur] 20 meq PO QDAY 05/05/17 05/05/17 Unknown History Sildenafil [Revatio] 20 mg PO TID 05/05/17 05/05/17 Unknown History Slow Fe 1 tab PO QDAY 05/05/17 05/05/17 Unknown History Active Meds: Active Medications Acetaminophen (Tylenol) 650 mg PO Q4H PRN PRN Reason: Pain MILD(1-3)/Fever >100.5/HUBBARD Enoxaparin Sodium (Lovenox) 30 mg SUB-Q QDAY ALETHA Heparin Sodium (Porcine) (Heparin) 5,000 unit IV YADIRA PRN PRN Reason: hep dwell Sodium Bicarbonate 150 meq/ (Dextrose) 1,150 mls @ 50 mls/hr IV DIRECT ALETHA Last Admin: 06/09/17 03:00 Dose: 50 mls/hr Vasopressin 20 unit/ Sodium (Chloride) 101 mls @ 9.09 mls/hr IV TITR ALETHA; 0.03 UNITS/MIN PRN Reason: Protocol Last Admin: 06/09/17 10:49 Dose: 0.03 units/min, 9.09 mls/hr Epinephrine 8 mg/ Sodium (Chloride) 250 mls @ 3.75 mls/hr IV TITR ALETHA; 2 MCG/ MIN PRN Reason: Protocol Last Admin: 06/09/17 07:00 Dose: 4 mcg/min, 7.5 mls/hr Piperacillin Sod/Tazobactam Sod (Zosyn/Ns 2.25 Gm/50ml) 2.25 gm in 50 mls @ 100 mls/hr IV Q8H ALETHA Last Admin: 06/09/17 10:51 Dose: Not Given Dopamine HCl/Dextrose (Intropin Drip 800 Mg/D5w 250 Ml) 800 mg in 250 mls @ 4.376 mls/hr IV TITR ALETHA; 2 MCG/KG/MIN PRN Reason: Protocol Last Titration: 06/09/17 11:55 Dose: 5 mcg/kg/min, 10.937 mls/hr Norepinephrine (Levophed Drip 4 Mg/Ns 250 Ml) 4 mg in 250 mls @ 7.5 mls/hr IV TITR ONE; 2 MCG/MIN PRN Reason: Protocol Stop: 06/10/17 13:41 Last Titration: 06/09/17 09:30 Dose: Infused Ondansetron HCl (Zofran) 4 mg IV Q8H PRN PRN Reason: N/V unrelieved by Kayla Vancomycin HCl (Vancomycin Pharmacy To Dose) 1 each IV PKCONSULT ALETHA PRN Reason: Protocol Physical Examination Vital signs: Vital Signs Pulse Resp 145 H 18 06/09/17 02:14 06/09/17 02:14 Results - Laboratory Findings ABG POC ABG pH 7.197 (7.35-7.45) L 06/09/17 10:19 POC ABG pCO2 42.1 (35-45) 06/09/17 10:19 POC ABG pO2 114 (80-105) H 06/09/17 10:19 POC ABG HCO3 16.3 06/09/17 10:19 POC ABG Total CO2 18 06/09/17 10:19 POC ABG O2 Sat 97 06/09/17 10:19 Abnormal lab findings: Abnormal Labs 06/09/17 06/09/17 06/09/17 03:31 04:15 05:15 POC ABG pH POC ABG pO2 POC Glucose 181 H Lactic Acid 13.10 H* CK-MB (CK-2) Rel Index 4.8 H Troponin T 0.108 H* HDL Cholesterol 29 L 06/09/17 06/09/17 09:57 10:19 POC ABG pH 7.197 L POC ABG pO2 114 H POC Glucose 247 H Lactic Acid CK-MB (CK-2) Rel Index Troponin T HDL Cholesterol
--- NOTE | 2017-06-09 13:13 | Consultation ---
History of Present Illness - Reason for Consult Consult date: 06/09/17 shock Requesting physician: ROBERT GIBBS - History of Present Illness 62 yo female with history of hypertension, A. fib with RVR, hyperlipidemia, pulmonary hypertension, uncontrolled diabetes, CHF, well known to ID service initially admitted on 05/05/17 - 06/08/17 due to be found at home with altered mental status and agitation. Patient was intubated and sedated. She had a complicated hospital stay. She was found on DKA- Glucose >800. Patient went to bradycardia down into the 30s in the ED and get two dose of atropine shortly after went to [facility] and started ACLS protocol. Also she had an episode of V. tach which improved prior to defibrillation but the patient received a bolus of amiodarone and then started on a drip. Patient was found to have Bilateral pneumonia and pleural effusions. CT chest shows markedly abnormal mediastinum with infiltrating soft tissue density and LN, markedly narrowing of distal trachea and mainstem bronchi, central consolidation RUL and ERIN. Tracheal asp + Strep group B likely a colonizer. CT abd +hepatosplenomegaly. S/P BAL on 05/15 Ping and AFB neg. Ping likely a colonizer. Cytology + many neutrophils no malignancy. She received initially S/P zosyn 7 days ended 05/18. Went into [facility]. unfortunately she then developed partial SBO. She was treated medically with cefepime and flagyl and suction, however was then taking to the OR for diagnostic lap, lysis of adhesions, PEG placement. Unfortunately, pt was transferred to LTAC yesterday night and overnight nursing from LTAC reported that the patient belly got distended last night. She subsequently underwent cardiac arrest, she was coded 4 times, 3 times on LTAC and once upon transfer to the ICU. Upon admission tot ED, temp 97.3, BP 95/58 , HR 145, lactate 13. rest of labs pending. Microbiology: pending Current Antimicrobials: Zosyn Vancomycin Previous Antimicrobials: Past History Past Medical History: atrial fib, COPD, diabetes, ESRD, heart failure, hypertension, renal failure, other (Pulmonary hypertension, cor pulmonale) Past Surgical History: Other (exploratory laparotomy and lysis of adhesions, tach, PEG) Social history: no significant social history Family history: no significant family history Medications and Allergies Allergies Allergy/AdvReac Type Severity Reaction Status Date / Time codeine Allergy Vomiting Verified 05/05/17 07:22 Home Medications Medication Instructions Recorded Confirmed Last Taken Type Albuterol Sulfate [Ventolin HFA] 2 puff IH QID PRN 12/11/15 05/05/17 1 Week Ago History ~04/18/16 8 Apixaban [Eliquis] 5 mg PO BID 12/11/15 05/05/17 1 Day Ago History ~04/24/16 5 cloNIDine [Catapres] 0.1 mg PO TID 12/11/15 05/05/17 1 Day Ago History ~04/24/16 0.1 hydrALAZINE [Apresoline TAB] 100 mg PO TID 12/11/15 05/05/17 1 Day Ago History ~04/24/16 100 Furosemide [Lasix TAB] 80 mg PO QDAY 12/23/16 05/05/17 Unknown History Aspirin [Lo-Dose Aspirin EC] 81 mg PO QDAY 05/05/17 05/05/17 Unknown History Carvedilol [Coreg] 37.5 mg PO BID 05/05/17 05/05/17 Unknown History Cholecalciferol (Vitamin D3) 1,000 unit PO DAILY 05/05/17 05/05/17 Unknown History [Vitamin D3] Levothyroxine [Synthroid] 100 mcg PO QAM 05/05/17 05/05/17 Unknown History Lisinopril [Zestril TAB] 2.5 mg PO QDAY 05/05/17 05/05/17 Unknown History Potassium Chloride [K-Dur] 20 meq PO QDAY 05/05/17 05/05/17 Unknown History Sildenafil [Revatio] 20 mg PO TID 05/05/17 05/05/17 Unknown History Slow Fe 1 tab PO QDAY 05/05/17 05/05/17 Unknown History Active Meds: Active Medications Acetaminophen (Tylenol) 650 mg PO Q4H PRN PRN Reason: Pain MILD(1-3)/Fever >100.5/HUBBARD Enoxaparin Sodium (Lovenox) 30 mg SUB-Q QDAY ALETHA Heparin Sodium (Porcine) (Heparin) 5,000 unit IV YADIRA PRN PRN Reason: hep dwell Sodium Bicarbonate 150 meq/ (Dextrose) 1,150 mls @ 50 mls/hr IV DIRECT ALETHA Last Admin: 06/09/17 03:00 Dose: 50 mls/hr Vasopressin 20 unit/ Sodium (Chloride) 101 mls @ 9.09 mls/hr IV TITR ALETHA; 0.03 UNITS/MIN PRN Reason: Protocol Last Admin: 06/09/17 10:49 Dose: 0.03 units/min, 9.09 mls/hr Epinephrine 8 mg/ Sodium (Chloride) 250 mls @ 3.75 mls/hr IV TITR ALETHA; 2 MCG/ MIN PRN Reason: Protocol Last Admin: 06/09/17 07:00 Dose: 4 mcg/min, 7.5 mls/hr Piperacillin Sod/Tazobactam Sod (Zosyn/Ns 2.25 Gm/50ml) 2.25 gm in 50 mls @ 100 mls/hr IV Q8H ALETHA Last Admin: 06/09/17 10:51 Dose: Not Given Dopamine HCl/Dextrose (Intropin Drip 800 Mg/D5w 250 Ml) 800 mg in 250 mls @ 4.376 mls/hr IV TITR ALETHA; 2 MCG/KG/MIN PRN Reason: Protocol Last Titration: 06/09/17 11:55 Dose: 5 mcg/kg/min, 10.937 mls/hr Norepinephrine (Levophed Drip 4 Mg/Ns 250 Ml) 4 mg in 250 mls @ 7.5 mls/hr IV TITR ONE; 2 MCG/MIN PRN Reason: Protocol Stop: 06/10/17 13:41 Last Titration: 06/09/17 09:30 Dose: Infused Insulin Aspart (Novolog) 0 units SUB-Q Q6HR ALETHA PRN Reason: Protocol Insulin Human Isoph/Insulin Regular (Novolin 70/30) 5 unit SUB-Q BIDDIAB [facility] Ondansetron HCl (Zofran) 4 mg IV Q8H PRN PRN Reason: N/V unrelieved by Darrelllan Vancomycin HCl (Vancomycin Pharmacy To Dose) 1 each IV PKCONSULT ALETHA PRN Reason: Protocol Physical Examination - Physical Exam Narrative exam: General appearance: sedated on the vent Eyes: anicteric sclerae, edema in conjunctivae; dilated pupils HENT: Atraumatic; oropharynx ETT Neck: Trachea midline; supple, no thyromegaly or lymphadenopathy Lungs: loud ayden rhonchi CV: tachy Abdomen: disteded Extremities: marked peripheral edema Skin: Normal temperature, turgor and texture; no rash, ulcers or subcutaneous nodules Psych: non responsive Lines: - Constitutional Vitals: Vital Signs Temp Pulse Resp BP Pulse Ox 115 H 24 112/58 98 06/09/17 11:07 06/09/17 08:10 06/09/17 11:07 06/09/17 11:07 Results - Labs Labs: Abnormal lab results 06/09/17 06/09/17 06/09/17 Range/Units 03:31 04:15 05:15 POC ABG pH (7.35-7.45) POC ABG pO2 (80-105) POC Glucose 181 H (70-105) Lactic Acid 13.10 H* (0.7-2.0) mmol/L CK-MB (CK-2) Rel Index 4.8 H (0-4) Troponin T 0.108 H* (0.00-0.029) ng/mL HDL Cholesterol 29 L (40-59) mg/dL 06/09/17 06/09/17 Range/Units 09:57 10:19 POC ABG pH 7.197 L (7.35-7.45) POC ABG pO2 114 H (80-105) POC Glucose 247 H (70-105) Lactic Acid (0.7-2.0) mmol/L CK-MB (CK-2) Rel Index (0-4) Troponin T (0.00-0.029) ng/mL HDL Cholesterol (40-59) mg/dL Assessment and Plan Assessment: 1) Shock post arrest: Present on admission, manifested by tachycardia, hypotension, increased lactate. Etiology unclear. 2) Resp failure 3) Diabetes 4) Previous cardiac arrest 5) Recent bilateral pneumonia and pleural effusions. 6) [facility] on HD. 7) SBO s/p OR for diagnostic lap, lysis of adhesions, PEG placement. 8) Encephalopathy ?hypoxic Plan: -follow-up blood cultures -sputum cx -UA -continue zosyn and vanco -neuro eval -crp Grave prognosis unfortunately Мария Simeon
[2017-06-09] MEDS: NOVOLOG SUB-Q SCH ×3 (14:26→23:15)
[2017-06-09] MEDS ORDERED: NEO-SYNEPHRINE 100 MG in NACL 0.9% 90 ML IV SCH (17:45)
--- NOTE | 2017-06-09 18:07 | Consultation ---
History of Present Illness Consult date: 06/09/17 Requesting physician: ROBERT GIBBS Reason for Consult: coma Chief complaint: Coma following cardiac arrest History of present illness: This 71-year-old -Citizen Of [place] right-handed female was admitted several weeks ago after an episode of shaking all over and speaking gibberish at which time glucose was noted to be 880. She had had a similar episode of flailing in December without a speech change associated with glucose of 600. This morning on LTAC she had a cardiac arrest requiring 4 rounds of resuscitation. She is currently on 4 pressors according to the nurse. No CT scan has been done apparently since attempt to send her for CT of the abdomen had to be aborted due to crashing blood pressure. I'm being consulted regarding possible brain . Past History Past Medical History: atrial fib, COPD, diabetes, ESRD, heart failure, hypertension, renal failure, other (Pulmonary hypertension, cor pulmonale). denies: seizures Past Surgical History: Other (exploratory laparotomy and lysis of adhesions, tach, PEG) Social history: no significant social history, other (never illicit drugs.). denies: smoking, alcohol abuse Family history: no significant family history, diabetes (paternal side), hypertension (both sides of the family), other (no history of epilepsy). denies : stroke Medications and Allergies Allergies Allergy/AdvReac Type Severity Reaction Status Date / Time codeine Allergy Vomiting Verified 05/05/17 07:22 Home Medications Medication Instructions Recorded Confirmed Last Taken Type Albuterol Sulfate [Ventolin HFA] 2 puff IH QID PRN 12/11/15 05/05/17 1 Week Ago History ~04/18/16 8 Apixaban [Eliquis] 5 mg PO BID 12/11/15 05/05/17 1 Day Ago History ~04/24/16 5 cloNIDine [Catapres] 0.1 mg PO TID 12/11/15 05/05/17 1 Day Ago History ~04/24/16 0.1 hydrALAZINE [Apresoline TAB] 100 mg PO TID 12/11/15 05/05/17 1 Day Ago History ~04/24/16 100 Furosemide [Lasix TAB] 80 mg PO QDAY 12/23/16 05/05/17 Unknown History Aspirin [Lo-Dose Aspirin EC] 81 mg PO QDAY 05/05/17 05/05/17 Unknown History Carvedilol [Coreg] 37.5 mg PO BID 05/05/17 05/05/17 Unknown History Cholecalciferol (Vitamin D3) 1,000 unit PO DAILY 05/05/17 05/05/17 Unknown History [Vitamin D3] Levothyroxine [Synthroid] 100 mcg PO QAM 05/05/17 05/05/17 Unknown History Lisinopril [Zestril TAB] 2.5 mg PO QDAY 05/05/17 05/05/17 Unknown History Potassium Chloride [K-Dur] 20 meq PO QDAY 05/05/17 05/05/17 Unknown History Sildenafil [Revatio] 20 mg PO TID 05/05/17 05/05/17 Unknown History Slow Fe 1 tab PO QDAY 05/05/17 05/05/17 Unknown History Active Meds: Active Medications Acetaminophen (Tylenol) 650 mg PO Q4H PRN PRN Reason: Pain MILD(1-3)/Fever >100.5/HUBBARD Enoxaparin Sodium (Lovenox) 30 mg SUB-Q QDAY [facility] Last Admin: 06/09/17 14:28 Dose: 30 mg Heparin Sodium (Porcine) (Heparin) 5,000 unit IV YADIRA PRN PRN Reason: hep dwell Sodium Bicarbonate 150 meq/ (Dextrose) 1,150 mls @ 50 mls/hr IV DIRECT ALETHA Stop: 06/09/17 21:00 Last Admin: 06/09/17 03:00 Dose: 50 mls/hr Vasopressin 20 unit/ Sodium (Chloride) 101 mls @ 9.09 mls/hr IV TITR ALETHA; 0.03 UNITS/MIN PRN Reason: Protocol Last Admin: 06/09/17 10:49 Dose: 0.03 units/min, 9.09 mls/hr Epinephrine 8 mg/ Sodium (Chloride) 250 mls @ 3.75 mls/hr IV TITR ALETHA; 2 MCG/ MIN PRN Reason: Protocol Last Titration: 06/09/17 14:50 Dose: 3 mcg/min, 5.62 mls/hr Piperacillin Sod/Tazobactam Sod (Zosyn/Ns 2.25 Gm/50ml) 2.25 gm in 50 mls @ 100 mls/hr IV Q8H ALETHA Last Admin: 06/09/17 14:25 Dose: 100 mls/hr Dopamine HCl/Dextrose (Intropin Drip 800 Mg/D5w 250 Ml) 800 mg in 250 mls @ 4.376 mls/hr IV TITR ALETHA; 2 MCG/KG/MIN PRN Reason: Protocol Last Titration: 06/09/17 11:55 Dose: 5 mcg/kg/min, 10.937 mls/hr Amino Acids/Electrolytes/Dextrose (Tpn Adult) 1,560 mls @ 65 mls/hr IV DAILY@ 2000 ALETHA PRN Reason: Protocol Stop: 06/10/17 19:59 Norepinephrine (Levophed Drip 4 Mg/Ns 250 Ml) 4 mg in 250 mls @ 7.5 mls/hr IV TITR ALETHA; 2 MCG/MIN PRN Reason: Protocol Last Admin: 06/09/17 14:50 Dose: 15 mcg/min, 56.25 mls/hr Phenylephrine HCl 100 mg/ (Sodium Chloride) 100 mls @ 3 mls/hr IV TITR ALETHA; 50 MCG/MIN PRN Reason: Protocol Insulin Aspart (Novolog) 0 units SUB-Q Q6HR ALETHA PRN Reason: Protocol Last Admin: 06/09/17 14:26 Dose: 3 units Insulin Human Isoph/Insulin Regular (Novolin 70/30) 5 unit SUB-Q BIDDIAB ALETHA Ondansetron HCl (Zofran) 4 mg IV Q8H PRN PRN Reason: N/V unrelieved by Kayla Vancomycin HCl (Vancomycin Pharmacy To Dose) 1 each IV PKCONSULT ALETHA PRN Reason: Protocol Review of Systems All systems: negative Constitutional: other (sometimes lightheadedness, no headaches. Some staring spells at the time of admission during which she could not respond to speech but was able to visually track family. Uses CPAP at home. Assessment short- term memory difficulties for several months. Has had numbness and tingling in hands and feet.) Physical Examination - Vital Signs Vital Signs: Vital Signs Pulse Resp 145 H 18 06/09/17 02:14 06/09/17 02:14 - Physical Exam Narrative exam: General Appearance: well developed and obese (per BMI) 70s -Citizen [place] female status post tracheotomy, unresponsive, on ventilator. HEENT: atraumatic, normocephalic; no bruits, 2+ Kiran without induration or enlargement, sclerae nonicteric. Oropharynx pink and moist. Neck: supple, no bruits. Heart: no murmur or extra sounds but sounds are distant. Extremities: no clubbing or cyanosis but has 1+ edema. Cannot feel posterior tibial or dorsalis pedis pulses on either side. Neurologic Exam: Mental Status: No response to voice or pain and no obedience of commands. Cranial Nerves: No blink to visual threat, no papilledema, SVPs present, pupils are 5 mm without reaction to light even examining with ophthalmoscope, EOMs absent with doll's eyes and ice water calorics, no response to supraorbital pressure or pinprick, no grimace to supraorbital pressure or TMJ pressure, gags are absent to oral suctioning and cough reflexes absent to tracheal suctioning, shoulder shrug cannot be done, tongue does not protrude to command. Cerebellar: Absent Sensory: No response to chest or neck skin pinch or nailbed pressure in all 4 extremities. Motor Exam Upper Extremities: Tone is decreased, no response to supraorbital pressure or chest or neck skin pinch or palmar rub or nail bed pressure. Motor Exam Lower Extremities: Tone is decreased, no response to supraorbital pressure or chest or neck skin pinch or thigh skin pinch or plantar rub or nail bed pressure. Reflexes: Palmomental, snout and jaw jerk are negative. Triceps and brachioradialis are 0 bilaterally, biceps are 0 right and trace left. Jeromy' s is negative bilaterally. Knee jerks and ankle jerks are 0 bilaterally without clonus. Toes are downgoing to mute to Babinski testing. Results - Laboratory Findings Abnormal Lab Findings: Abnormal Labs 06/09/17 06/09/17 06/09/17 03:31 04:15 05:15 POC ABG pH POC ABG pCO2 POC ABG pO2 POC Glucose 181 H Lactic Acid 13.10 H* CK-MB (CK-2) Rel Index 4.8 H Troponin T 0.108 H* HDL Cholesterol 29 L 06/09/17 06/09/17 06/09/17 09:57 10:19 14:07 POC ABG pH 7.197 L 7.309 L POC ABG pCO2 29.7 L POC ABG pO2 114 H 116 H POC Glucose 247 H Lactic Acid CK-MB (CK-2) Rel Index Troponin T HDL Cholesterol Assessment and Plan Impression: 1. Hypoxic ischemic encephalopathy. Plan: 1. Had scopolamine patch behind left ear which I removed. 2. Will order CT scan of head if stable enough to have it done, to assess for cerebral edema. 3. EEG shows some artifact but probably electrocerebral silence consistent with brain as I explained to the family along with the fact that her examination indicates she will never wake up. I explained that they will need to decide about withdrawing support but should wait until 24 hours off the scopolamine. 4. Should keep scopolamine patch off until reevaluated. If desired, could have Dr. Avery recheck her either tomorrow or the next day. 40 minutes critical care time spent with this patient including extra time for ice water calorics. Thank you for the interesting consultation on this unfortunate late 60s lady.
[2017-06-09] MEDS ORDERED: TPN ADULT 1,560 ML IV SCH (20:00)
[2017-06-10] MEDS: LEVOPHED DRIP 4 MG/NS 250 ML 4 MG/250 ML BAG IV SCH ×2 (00:50→05:37)
[2017-06-10] MEDS: NOVOLOG SUB-Q SCH (05:22)
[2017-06-10] MEDS: ZOSYN/NS 2.25 GM/50ML 2.25 GM/50 ML BAG IV SCH (05:28)
[2017-06-10 05:32] LABS: Magnesium 2.2 mg/dL (1.7-2.3)
[2017-06-10 05:34] LABS: Calcium 7.6 mg/dL (8.4-10.2)
[2017-06-10 05:36] LABS: Hematocrit 23.7 % (30.3-42.9); Hemoglobin 7.3 gm/dl (10.1-14.3); Mean Corpuscular HGB Conc 31 % (30-34); Mean Corpuscular Volume 80 fl (79-97); Platelet Count 187 K/mm3 (140-440); Red Blood Count 2.97 M/mm3 (3.65-5.03)
[2017-06-10] MEDS: ADRENALIN 8 MG in NACL 0.9% 250ML 242 ML IV SCH (05:40)
[2017-06-10 05:43] LABS: Mean Corpuscular Hemoglobin 25 pg (28-32)
[2017-06-10 05:44] LABS: INR 1.86 (0.87-1.13); Red Cell Distribution Width 22.1 % (13.2-15.2)
[2017-06-10 05:45] LABS: Partial Thromboplastin Time 40.4 Sec. (24.2-36.6)
[2017-06-10 07:15] LABS: Total Cells Counted 100
[2017-06-10 07:16] LABS: Anisocytosis 1+; Band Neutrophils # (Manual) 5.2 K/mm3; Basophils % (Manual) 0 % (0.0-1.8); Hypochromasia 1+; Ovalocytes Few; Target Cells Rare
[2017-06-10 07:17] LABS: Platelet Estimate Consistent w Auto
[2017-06-10] MEDS ORDERED: CALCIUM CHLORIDE IV ONE (07:25)
[2017-06-10] MEDS ORDERED: ADRENALIN ONE (07:54)
[2017-06-10] MEDS ORDERED: SODIUM BICARBONATE IV ONE (07:54)
--- NOTE | 2017-06-10 08:38 | Event Note ---
Date: 06/10/17 I was called to see the patient secondary to a CODE BLUE being called. When I arrived, the patient was receiving chest compressions after she was found to be asystolic by the ICU staff. She had just received a first dose of epinephrine. She has a tracheostomy in place and was receiving bag valve ventilation. Apparently the patient has had multiple episodes of cardiac arrest with return of spontaneous circulation. The internal medicine service has been in contact with the patient's brother regarding CODE STATUS but as of my arrival the patient was a full code. She has been dealing with uncontrolled diabetes and apparently her blood sugar at 6 AM was 300. A dose of sodium bicarbonate was given. At the first pulse and a rhythm check, the patient was asystolic and still pulseless so chest compressions were continued. She received another dose of epinephrine and was given a dose of calcium secondary to a history of some renal insufficiency, without knowing her potassium level. Just about the time that we are due for another rhythm and pulse check, we were able to get in touch with the patient's brother who asked for all resuscitative efforts to be stopped and for the patient to be made a DO NOT RESUSCITATE. At this point, the patient did have a return of spontaneous circulation. She appeared to be very tachycardic with what could have a morphology consistent with V. tach, so the patient was given a dose of amiodarone. She began slowing down and had a more regular, sinus rhythm. At this point, further care was turned back over to the internal medicine service. Critical care time spent on this patient was 15 minutes spent supervising ACLS protocol.
--- NOTE | 2017-06-10 08:43 | Death Summary ---
Summary - Providers Date of service: 06/10/17 Consults: 06/09/17 02:55 Consult to Physician [CONS] Urgent Consulting Provider: GUILLERMO MENA Reason For Exam: cc Notified:: y 06/09/17 03:41 Consult to Physician [CONS] Routine Consulting Provider: EV WARD Reason For Exam: abd distended Notified:: laboratory secretary pl call 06/09/17 04:06 Consult to Physician [CONS] Routine Consulting Provider: SYLVAIN HUNT Reason For Exam: cardiac arrest Place consult to:: DR Sylvain Hunt Notified:: yes Was contact made?: Yes If yes, spoke with:: Apple Summers Time called:: 10:20 06/09/17 09:43 Consult to Physician [CONS] Routine Consulting Provider: DERIC HYATT Reason For Exam: Cardiac arrest x 4, anoxic encephalopathy Place consult to:: Dr Hyatt Notified:: yes Phone number called:: [phone] Was contact made?: Yes If yes, spoke with:: Emily Time called:: 11:10 06/09/17 10:01 Consult to Physician [CONS] Routine Consulting Provider: CANDY VALLADARES Reason For Exam: sepsis/septic shock Place consult to:: DR Simeon Notified:: yes Was contact made?: Yes If yes, spoke with:: Dr Simeon 06/09/17 12:54 Consult to Dietitian/Nutrition [CONS] Routine Physician Instructions: Reason For Exam: Reason for Consult: Write/Manage TPN/PPN Attending: ROBERT GIBBS - summary Date of admission: 06/09/17 02:11 Date of : 06/10/17 (at 07:54 am) Reason for admission: cardiac arrest 4, acute respiratory failure, intubated Significant findings: 71-year-old female patient with multiple medical problems hypertension, diabetes ,A. fib ,congestive heart failure ,CVA ,hypothyroidism ,small bowel obstruction status post laparoscopy lysis of adhesions and laparoscopic PEG tube placement was initially discharged to [facility] on 06/08/2017. In LTAC patient had cardiac arrest 3 status post CPR per ACLS protocol Patient was later evaluated by covering hospitalist Dr. Hunt and transferred to ICU where she coded and had cardiac arrest the fourth time receiving CPR, and patient was revived. Family was aware of these events and requested full CODE STATUS Patient was hypotensive on multiple pressors, septic with lactic acidosis, acute respiratory failure on vent, hypoxic encephalopathy unresponsive and in a very critical condition. Patient was managed appropriately Evaluated by pulmonary critical, cardiology, neurology, surgery and infectious diseases, and medications were optimized. All the physicians and caregivers have updated the critical condition and poor prognosis of the patient with the family On 06/10/2017 at 7:25 AM , patient had at another cardiac arrest, code was called, CPR was done by the ER physician per ACLS protocol, discussed with the son patient's condition and poor prognosis, and son requested DO NOT RESUSCITATE status and asked us to stop CPR, extubate and stop all the treatment. Patient's pulse briefly returned, however patient again became pulseless and . Pronounced at 07:54 on 06/10/2017. Son Clive was at the bedside. I spent 50 minutes coordinating the patient care Cause of : Respiratory failure Septic shock Cardiopulmonary arrest Lactic acidosis Final diagnosis; --Cardiac arrest x 5 status post CPRx5 --Acute arrest requiring intubation and ventilation --Anoxic encephalopathy; supportive care, neuro evaluation --Acute on chronic respiratory failure; requiring intubation and ventilatory support --Lactic acidosis; secondary to underlying sepsis, --Septic shock; requiring multiple pressors, --Abdominal distention; recent history of laparoscopic surgery, --Small bowel obstruction status post recent laparoscopic lysis admission, laparoscopic PEG placement --Atrial fibrillation; --History of hypothyroidism, Patient pronounced on 06/10/2017 at 07:54 a.m. Procedures/treatments rendered: CPR per ACLS protocol Disposition: on 06/10/2017 at 7:54 AM - Final diagnosis (1) Cardiac arrest Note: Final diagnosis: (2) Acute respiratory failure with hypoxia and hypercapnia Note: Final diagnosis: (3) Septic shock Note: Final diagnosis: (4) Lactic acidosis Note: Final diagnosis: (5) H/O small bowel obstruction Note: Final diagnosis: (6) Atrial fibrillation Note: Final diagnosis: (7) Anoxic encephalopathy Note: Final diagnosis:
[2017-06-10 09:16] VITALS: BP 66/39
== END 2017-06-10 07:55 | DRG 871 ==
LOC: CC1 02:11
PROVIDERS: ADMIT Internal Medicine; ATTEND Internal Medicine
PROC: 4A033R1 Measurement of Arterial Saturation, Peripheral, Percutaneous Approach (ICD-10-PCS; principal; 2017-06-09)
PROC: 5A12012 Performance of Cardiac Output, Single, Manual (ICD-10-PCS; 2017-06-09)
PROC: 5A1935Z Respiratory Ventilation, Less than 24 Consecutive Hours (ICD-10-PCS; 2017-06-09)
DX: A41.9 Sepsis, unspecified organism (principal); R65.21 Severe sepsis with septic shock; N18.6 End stage renal disease; E11.10 Type 2 diabetes mellitus with ketoacidosis without coma; J96.21 Acute and chronic respiratory failure with hypoxia; J96.22 Acute and chronic respiratory failure with hypercapnia; I13.2 Hypertensive heart and chronic kidney disease with heart failure and with stage 5 chronic kidney disease, or end stage renal disease; N17.9 Acute kidney failure, unspecified; I48.1 Persistent atrial fibrillation; K56.600 Partial intestinal obstruction, unspecified as to cause; G93.1 Anoxic brain damage, not elsewhere classified; Z66 Do not resuscitate; I50.9 Heart failure, unspecified; E03.9 Hypothyroidism, unspecified; I46.9 Cardiac arrest, cause unspecified; E11.22 Type 2 diabetes mellitus with diabetic chronic kidney disease; I27.20 Pulmonary hypertension, unspecified; Z79.82 Long term (current) use of aspirin; Z86.73 Personal history of transient ischemic attack (TIA), and cerebral infarction without residual deficits; Z90.49 Acquired absence of other specified parts of digestive tract; Z82.49 Family history of ischemic heart disease and other diseases of the circulatory system; Z79.899 Other long term (current) drug therapy
CPT/HCPCS: 36415; 36600; 80053; 80061; 80202; 82140; 82550; 82553; 82803; 82962; 83735; 84100; 84484; 85007; 85025; 85610; 85730; 86140; 92950; 94002; 94003; 95819; J0171; J1265; J1650; J1815; J2543; J3370; J7040; J7050; J7070